=== PATIENT | male | born 1945 | race American Indian/Alaskan Native ===

== ENCOUNTER 2017-02-05 12:24 | Inpatient (IN) | payer BC, MEDICARE ==
[2017-02-05 13:20] VITALS: BMI 28.5
[2017-02-05 13:26] LABS: INR 1.11 (0.93-1.08); PARTIAL THROMBOPLASTIN TIME 27.2 Seconds (25.1-36.5)
[2017-02-05] MEDS ORDERED: Bupivacaine 0.5% Inj(30mL) ONE (14:14)
[2017-02-05] MEDS ORDERED: Propofol 10 mg/ml Inj (20 ML) ONE ×2 (14:29→15:49)
[2017-02-05] MEDS ORDERED: Midazolam 2 MG/2 ML VIAL ONE (14:30)
[2017-02-05] MEDS ORDERED: Rocuronium 10 mg/ml (5 ml) ONE ×2 (14:30→15:49)
[2017-02-05] MEDS ORDERED: HYDROmorphone 1 mg/ml ISec IVP PRN (14:56)
[2017-02-05 16:04] LABS: FLUID TYPE SYNOVIAL FLUID
[2017-02-05 16:52] LABS: SYNOVIAL FLUID TOTAL COUNT 100 (0-0)
--- NOTE | 2017-02-05 17:18 | CARD ---
APPROVED REPORT EKG Measurement Heart [id number] <Conclusion> Normal sinus rhythm Normal ECG
[2017-02-05] MEDS ORDERED: Absorbable Gelatin Sponge Size 100 ONE (17:30)
[2017-02-05] MEDS ORDERED: Thrombin Topical 5,000 Int Units Spray Kit ONE (17:31)
[2017-02-05] MEDS ORDERED: Vancomycin 1 g Inj ONE (17:41)
[2017-02-05] MEDS: HYDROmorphone 0.5 mg/0.5 ml ISec IVP PRN ×3 (20:22→20:58)
[2017-02-05] MEDS ORDERED: HYDROmorphone 1 mg/ml PCA IV ONE (20:35)
[2017-02-05] MEDS ORDERED: HYDROmorphone 0.5 mg/0.5 ml ISec ONE ×2 (20:40→20:57)
[2017-02-05] MEDS ORDERED: HYDROmorphone 0.2 mg/ml (25ml) 25 ML IV ONE (20:43)
--- NOTE | 2017-02-05 23:07 | CP.PCM.CON ---
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 Jenkins, Prostate cancer s/p radiation, GERD, CAD, NIDDM Type II, and Hyperlipidemia. The patient taken to OR for right knee arthroplasty placement after having his prior right knee arthroplasty removed for infection. The patient underwent 6 weeks of IV antibiotics with good results. PMHx: CLL, Prostate Ca, GERD, CAD, NIDDM Type II, HLD PSHx: Right permacath, Bilateral knee arthroplasty, right knee arthroplasty explant, tooth extractions Allergies: NKDA Social Hx: Ex-EtOH use stopped 35 years ago, Ex-smoker 1.5 ppd stopped 26 years ago No illicit drug use Active Medications Acetaminophen (Tylenol 325mg Tab) 975 mg PO Q8H [facility] Aspirin (Ecotrin) 81 mg PO DAILY [facility] Cyproheptadine HCl (Periactin) 4 mg PO BID [facility] Docusate Sodium (Colace) 100 mg PO BID [facility] Enoxaparin Sodium (Lovenox) 40 mg SC Q24H [facility] PRN Reason: Protocol Ergocalciferol (Drisdol 50,000 Intl Units Cap) 1 cap PO MON [facility] Hydromorphone HCl (Dilaudid) 0.5 mg IVP Q4 PRN PRN Reason: Pain, severe (8-10) Cefazolin Sodium 2 gm/ Sodium (Chloride) 100 mls @ 200 mls/hr IVPB Q8H [facility] PRN Reason: Protocol Stop: 02/06/17 07:29 Last Admin: 02/05/17 23:19 Dose: 200 mls/hr Multivitamins/Minerals (Therapeutic-M Tab) 1 tab PO DAILY [facility] Nitrofurantoin Macrocrystals (Macrobid) 100 mg PO DAILY [facility] Fesoterodine Fumarate [Toviaz] 4 Mg 4 mg PO DAILY [facility] Iron [Iron] 65 Mg 65 mg PO DAILY [facility] Methenamine Hippurate [Hiprex] 1 Gm 1 gm PO DAILY [facility] Sitagliptin Phos/Metformin Hcl [ Janumet 50-1,000 Mg Tablet] 1 tab PO BID [facility] Tamsulosin HCl (Flomax) 0.4 mg PO DAILY [facility] Family Hx: DM in mother Lung cancer father cancer in sister ROS: No fevers, chills, nausea, vomiting, diarrhea, headaches, dizziness, chest pain , abdominal pain, melena, hematuria, hematemesis, hematochezia, depression, anxiety Past Patient History - Infectious Disease Hx of Infectious Diseases: None - Tetanus Immunizations Tetanus Immunization: >10 years Ago - Past Social History Smoking Status: Former Smoker - CARDIAC Hx Pacemaker: No - PULMONARY Hx Respiratory Disorders: No (SMOKED CIGARETTES PK 1/2 QUIT 30 YRS AGO) - NEUROLOGICAL Hx Paralysis: No - HEENT Hx HEENT Problems: No - RENAL Hx Chronic Kidney Disease: No - ENDOCRINE/METABOLIC Hx Endocrine Disorders: Yes - HEMATOLOGICAL/ONCOLOGICAL Hx Blood Transfusions: No Hx Blood Transfusion Reaction: No - INTEGUMENTARY Hx Dermatological Problems: No - MUSCULOSKELETAL/RHEUMATOLOGICAL Hx Musculoskeletal Disorders: Yes (BILATERAL KNEE SURGERY,) - GASTROINTESTINAL Hx Gastrointestinal Disorders: No Hx Crohn's Disease: No - GENITOURINARY/GYNECOLOGICAL Hx Genitourinary Disorders: Yes Hx Prostate Cancer: Yes Hx Prostate Problems: Yes (prostate ca) - PSYCHIATRIC Hx Emotional Abuse: No Hx Physical Abuse: No Hx Substance Use: No - SURGICAL HISTORY Hx Surgeries: Yes - ANESTHESIA Hx Anesthesia Reactions: No Meds Allergies/Adverse Reactions: Allergies Allergy/AdvReac Type Severity Reaction Status Date / Time No Known Allergies Allergy Verified 03/07/16 10:06 - Medications Medications: Current Medications Acetaminophen (Tylenol 325mg Tab) 975 mg PO Q8H [facility] Aspirin (Ecotrin) 81 mg PO DAILY [facility] Cyproheptadine HCl (Periactin) 4 mg PO BID [facility] Docusate Sodium (Colace) 100 mg PO BID [facility] Enoxaparin Sodium (Lovenox) 40 mg SC Q24H [facility] PRN Reason: Protocol Ergocalciferol (Drisdol 50,000 Intl Units Cap) 1 cap PO MON [facility] Hydromorphone HCl (Dilaudid) 0.5 mg IVP Q4 PRN PRN Reason: Pain, severe (8-10) Cefazolin Sodium 2 gm/ Sodium (Chloride) 100 mls @ 200 mls/hr IVPB Q8H [facility] PRN Reason: Protocol Stop: 02/06/17 07:29 Multivitamins/Minerals (Therapeutic-M Tab) 1 tab PO DAILY [facility] Nitrofurantoin Macrocrystals (Macrobid) 100 mg PO DAILY [facility] Fesoterodine Fumarate [Toviaz] 4 Mg 4 mg PO DAILY [facility] Iron [Iron] 65 Mg 65 mg PO DAILY [facility] Methenamine Hippurate [Hiprex] 1 Gm 1 gm PO DAILY [facility] Sitagliptin Phos/Metformin Hcl [ Janumet 50-1,000 Mg Tablet] 1 tab PO BID [facility] Tamsulosin HCl (Flomax) 0.4 mg PO DAILY [facility] Physical Exam - Constitutional Appears: Non-toxic, No Acute Distress - Head Exam Head Exam: ATRAUMATIC, NORMOCEPHALIC - Eye Exam Eye Exam: EOMI, PERRL Pupil Exam: NORMAL ACCOMODATION, PERRL - ENT Exam ENT Exam: Mucous Membranes Moist, Normal External Ear Exam, TM's Normal Bilaterally - Neck Exam Neck exam: Positive for: Full Rom, Normal Inspection - Respiratory Exam Respiratory Exam: Clear to Auscultation Bilateral, NORMAL BREATHING PATTERN. absent: Rales, Rhonchi, Wheezes - Cardiovascular Exam Cardiovascular Exam: REGULAR RHYTHM, RRR, +S1 - GI/Abdominal Exam GI & Abdominal Exam: Normal Bowel Sounds, Soft. absent: Distended, Tenderness - Extremities Exam Extremities exam: Positive for: full ROM, normal inspection Additional comments: s/p right knee arthroplasty - Neurological Exam Neurological exam: Alert, CN II-XII Intact, Oriented x3 - Psychiatric Exam Psychiatric exam: Normal Affect, Normal Mood - Skin Skin Exam: Intact, Normal Color Results - Vital Signs Recent Vital Signs: Last Vital Signs Temp 98.2 F 02/05/17 21:20 Pulse 83 02/05/17 21:20 Resp 16 02/05/17 21:20 BP 127/69 02/05/17 21:20 Pulse Ox 100 02/05/17 21:20 - Labs Labs: Laboratory Results - last 24 hr 02/05/17 02/05/17 02/05/17 13:00 13:00 16:03 PT 12.2 INR 1.11 H APTT 27.2 Fluid Type Synovial fluid Synovial WBC 108.0 Synovial RBC 7128.0 H Synovial Neutrophils 20.0 H Synovial Lymphocytes 75.0 H Synov Monos/Macrophage 5 H Synovial Fluid Comment TEST NOT PERFORMED Blood Type O POSITIVE Antibody Screen Negative Crossmatch See Detail BBK History Checked Patient has bt Assessment & Plan - Assessment and Plan (Free Text) Assessment: 71 yo AA male with right knee arthroplasty done today. The patient has a history of CLL on chemotherapy, GERDs, HTN, NIDDM Type II. ESR prior to today' s surgery was under 40. He completed a 6 week course of IV antibiotics about 2- 3 weeks ago. Currently on the postsurgical Ancef. Patient is calm and collected now. States he is relatively comfortable at this time. Supportive care. May consider use of prophylactic antibiotic therapy given his multiple complications. Thank you for allowing me to participate in the care of the patient, we will follow with you.
[2017-02-05] MEDS: ceFAZolin 2 GM in Sodium Chloride 0.9% 100 ML IVPB SCH (23:19)
--- NOTE | 2017-02-06 05:38 | OP ---
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 PROCEDURE: Revision right total hip arthroplasty. SURGEON: Josh Fritz MD CREATIVE WRITING PROFESSOR: Dr. Fritz is assisted by Caryn Garcia, the physician photographer's assistant. Ms. Garcia was present throughout the entire case and assisted in the patient's positioning, retraction and wound closure. TYPE OF ANESTHESIA: General. COMPLICATIONS: None. ESTIMATED BLOOD LOSS: 800 mL. The patient received 1 unit of packed RBCs intraoperatively. IMPLANT: Biomet OSS hinged total knee prosthesis. INDICATIONS FOR PROCEDURE: This is a 71-year-old gentleman who approximately 3 months ago underwent removal of right total knee replacement and insertion of an antibiotic spacer. The patient postoperatively subsequently had a long course of IV antibiotics. Subsequently, the patient was cleared for reimplantation. The risks, benefits, and alternatives of procedure were discussed with the patient and the patient's including the possibility of reinfection, and informed consent was obtained. OPERATIVE PROCEDURE: After the surgical site was signed and verified in the preoperative holding area, the patient was taken to the operating room and placed supine on the operating room table. After administration of general anesthesia, the patient received 2 g of Ancef IV. A Baires catheter was inserted. Tourniquet was placed about the right thigh. Care was taken to make sure all bony prominences and nerves were well padded and protected. Venodyne boot was placed on the nonoperative extremity, and the right lower extremity was prepped and draped in usual sterile fashion. The tourniquet was inflated and the previous incision was re-incised. Soft tissues were dissected sharply down to the knee capsule and the medial parapatellar arthrotomy was performed. The patient was noted to have extensive scar tissue and the soft tissue extremely adherent both medially and laterally and this necessitated, in order to obtain adequate exposure, a significant medial and lateral soft tissue release was necessary. Once this was done, the antibiotic spacer was removed and some fluid was sent off for cell count and soft tissue was sent for frozen section. At this point, due to the extensive soft tissue release, a decision was made to do a hinged prosthesis and a step drill was used to drill into the medullary canal of the distal femur and intramedullary distal femoral guide for the OSS implant was then inserted and pinned into place. A 3 cm distal femoral resection was performed and the medullary canal of the proximal femur was reamed and broached sequentially to allow for a 15.5 mm stem. At this point, using the intramedullary proximal tibial guide, revision proximal tibial cut was performed. Once this was done, being careful to maintain proper rotation, the trial tibia was inserted, a trial femur was inserted, and a trial bearing was inserted. The knee was taken through a range of motion, it was noted to have full extension and flexion and stable throughout. At this point, the trial component was removed and the knee joint was pulsed lavaged with antibiotic saline solution. Please note, the tourniquet was deflated after 127 minutes, and approximately 35 minutes later, the tourniquet was reinflated for an additional 53 minutes. Once the tourniquet was reinflated, the bony surfaces were dried and the actual tibial and femoral components were cemented into place. Again, care was taken to maintain proper rotation of the tibial component. Once the cement was hardened, the trial bearing was once again inserted to confirm satisfactory position, and at this point, the knee joint was pulsed lavaged and actual bearing was inserted and hinged to the femoral component with the appropriate pushing. Again, the patient was noted to have full extension and flexion and stable throughout. At this point, the tourniquet was deflated and any obvious bleeding was cauterized. Medium Hemovac drain was inserted and arthrotomy was closed using interrupted #1 Vicryl suture. Please note that two Biomet All-Suture Anchors were inserted into the tibial tubercle to prevent any tibial tubercle avulsion fracture. The subcutaneous tissue was closed using 0 Vicryl and 2-0 Vicryl and the skin was closed using 3-0 nylon. A sterile dressing was applied and a knee immobilizer was placed. The patient was awakened from the procedure and taken to the recovery room in stable condition. Josh Fritz MD
[2017-02-06] MEDS: ceFAZolin 2 GM in Sodium Chloride 0.9% 100 ML IVPB SCH (06:23)
--- NOTE | 2017-02-06 07:11 | CP.PCM.CON ---
History of Present Illness - History of Present Illness History of Present Illness: Heme/onc progress note for Dr Jenkins's service Reason for consult: anemia Patient is a 71 y/o male known to Dr Jenkins with PMH of stage IV SLL/CLL and prostate cancer locally advanced s/p radiation and androgen blocked neupron and aredia. Patient was on Imbruvica for SLL which is on hold in preparation to surgery due to increased risk of bleeding diasthesis and atrial fibrillation with this medications. Patient was also on eliquis which was also stopped anticipating surgery. Patient had recent PET scan ( 01/30/17) with no evidence of progression. Patient had bilateral knee replacement few years ago and since then he states he has been having problems with the knees getting infected. Patient presented to same day surgery yesterday for revision of the right knee prosthetic joint infection s/p explant and spacer of the knee. Patient lost 800 ml of blood in the OR was transfused a unit. Patient also had bloody drainage from the right knee drained 610 since being on the med/surg floor. Dr Jenkins is consulted for the management of his anemia and reevaluation post operatively. Patient otherwise states he is feeling better, had temp with tmax of 102.6 around midnight, and was giving Tylenol, temp this am was 99.6. Patient denies chills, denies nausea, vomiting or diarrhea. Patient's right leg is immobilized. Patient denies dizziness, cp or sob. No headaches. PMHx: stage IV SLL/CLL, prostate CA s/p radiation and chemo, GERD, HLD, CAD, NIDDM2 PSHx: BL knee Sx, tooth extractions, R permacath SocialHx: 35 pack year history, quit 26years ago, denies alcohol or illicit drug use. FamilyHx: Mom had DM. Dad had Lung CA. Sister had unknown type of CA Allergies: NKDA Home Meds: reviewed. Review of Systems - Review of Systems All systems: reviewed and no additional remarkable complaints except Review of Systems: As per HPI. Past Patient History - Infectious Disease Hx of Infectious Diseases: None - Tetanus Immunizations Tetanus Immunization: >10 years Ago - Past Social History Smoking Status: Former Smoker Alcohol: None Drugs: Denies Home Situation {Lives}: With Family - CARDIAC Hx Pacemaker: No - PULMONARY Hx Respiratory Disorders: No (SMOKED CIGARETTES PK 1/2 QUIT 30 YRS AGO) - NEUROLOGICAL Hx Paralysis: No - HEENT Hx HEENT Problems: No - RENAL Hx Chronic Kidney Disease: No - ENDOCRINE/METABOLIC Hx Endocrine Disorders: Yes - HEMATOLOGICAL/ONCOLOGICAL Hx Blood Transfusions: No Hx Blood Transfusion Reaction: No - INTEGUMENTARY Hx Dermatological Problems: No - MUSCULOSKELETAL/RHEUMATOLOGICAL Hx Musculoskeletal Disorders: Yes (BILATERAL KNEE SURGERY,) - GASTROINTESTINAL Hx Gastrointestinal Disorders: No Hx Crohn's Disease: No - GENITOURINARY/GYNECOLOGICAL Hx Genitourinary Disorders: Yes Hx Prostate Cancer: Yes Hx Prostate Problems: Yes (prostate ca) - PSYCHIATRIC Hx Emotional Abuse: No Hx Physical Abuse: No Hx Substance Use: No - SURGICAL HISTORY Hx Surgeries: Yes - ANESTHESIA Hx Anesthesia Reactions: No Meds Allergies/Adverse Reactions: Allergies Allergy/AdvReac Type Severity Reaction Status Date / Time No Known Allergies Allergy Verified 03/07/16 10:06 - Medications Medications: Current Medications Acetaminophen (Tylenol 325mg Tab) 975 mg PO Q8H [facility] Aspirin (Ecotrin) 81 mg PO DAILY [facility] Cyproheptadine HCl (Periactin) 4 mg PO BID [facility] Docusate Sodium (Colace) 100 mg PO BID [facility] Enoxaparin Sodium (Lovenox) 40 mg SC Q24H [facility] PRN Reason: Protocol Ergocalciferol (Drisdol 50,000 Intl Units Cap) 1 cap PO MON [facility] Hydromorphone HCl (Dilaudid) 0.5 mg IVP Q4 PRN PRN Reason: Pain, severe (8-10) Cefazolin Sodium 2 gm/ Sodium (Chloride) 100 mls @ 200 mls/hr IVPB Q8H [facility] PRN Reason: Protocol Stop: 02/06/17 07:29 Last Admin: 02/06/17 06:23 Dose: 200 mls/hr Multivitamins/Minerals (Therapeutic-M Tab) 1 tab PO DAILY [facility] Nitrofurantoin Macrocrystals (Macrobid) 100 mg PO DAILY [facility] Fesoterodine Fumarate [Toviaz] 4 Mg 4 mg PO DAILY [facility] Iron [Iron] 65 Mg 65 mg PO DAILY [facility] Methenamine Hippurate [Hiprex] 1 Gm 1 gm PO DAILY [facility] Sitagliptin Phos/Metformin Hcl [ Janumet 50-1,000 Mg Tablet] 1 tab PO BID [facility] Tamsulosin HCl (Flomax) 0.4 mg PO DAILY [facility] Physical Exam - Constitutional Appears: No Acute Distress - Head Exam Head Exam: ATRAUMATIC, NORMAL INSPECTION, NORMOCEPHALIC - Eye Exam Eye Exam: EOMI, Normal appearance, PERRL. absent: Scleral icterus Pupil Exam: NORMAL ACCOMODATION - ENT Exam ENT Exam: Mucous Membranes Moist - Neck Exam Neck exam: Positive for: Normal Inspection - Respiratory Exam Respiratory Exam: Clear to Auscultation Bilateral, NORMAL BREATHING PATTERN. absent: Rales, Rhonchi, Wheezes, Respiratory Distress, Stridor - Cardiovascular Exam Cardiovascular Exam: REGULAR RHYTHM, RRR, +S1, +S2. absent: Systolic Murmur - GI/Abdominal Exam GI & Abdominal Exam: Normal Bowel Sounds, Soft. absent: Distended, Firm, Guarding, Rigid, Tenderness - Extremities Exam Extremities exam: Negative for: pedal edema Additional comments: Right leg with clean dressing, immobilized, with knee drain draining sanguineous fluid. - Neurological Exam Neurological exam: Alert, Oriented x3, Reflexes Normal - Psychiatric Exam Psychiatric exam: Normal Affect, Normal Mood - Skin Skin Exam: Dry, Warm Results - Vital Signs Recent Vital Signs: Last Vital Signs Temp 102.6 F H 02/06/17 03:35 Pulse 92 H 02/06/17 00:05 Resp 20 02/06/17 00:05 BP 128/69 02/06/17 00:05 Pulse Ox 100 02/06/17 00:05 - Labs Result Diagrams: 02/06/17 07:30 02/06/17 07:30 Labs: Laboratory Results - last 24 hr 02/05/17 02/05/17 02/05/17 13:00 13:00 16:03 PT 12.2 INR 1.11 H APTT 27.2 Fluid Type Synovial fluid Synovial WBC 108.0 Synovial RBC 7128.0 H Synovial Neutrophils 20.0 H Synovial Lymphocytes 75.0 H Synov Monos/Macrophage 5 H Synovial Fluid Comment TEST NOT PERFORMED Blood Type O POSITIVE Antibody Screen Negative Crossmatch See Detail BBK History Checked Patient has bt Assessment & Plan - Assessment and Plan (Free Text) Assessment: 71 y/o male known to Dr Jenkins with PMH of stage IV SLL/CLL ( was on Imbruvica ) and prostate cancer locally advanced s/p radiation and androgen blocked neupron admitted s/p right knee prosthetic joint infection revision s/p explant and spacer. Patient was transfused a unit in the OR yesterday. Heme/onc is consulted to reevaluate and treat anemia. Patient h/h dropped this am, will type and cross and transfuse 2 units of prbc, each unit transfused over 3 hours. Patient to get pre-medicated with Tylenol, Benadryl and solucortef prior to transfusion and will get 40 mg of Lasix in between the transfusions. Patient was started on Lovenox this AM for DVT prophylaxis by orthopedic. Will continue to hold Imbruvica chemo until patient is stable. Patient is being followed by multiple services including ID and cardio. Patient was febrile overnight, will order blood cultures, more recommendations as per ID. Patient seen, examined and case discussed with Dr Jenkins. - Date & Time Date: 02/06/17 Time: 07:10
[2017-02-06 08:19] LABS: BASO # 0.02 K/mm3 (0.0-2.0); BASO % 0.3 % (0.0-3.0); EOS % 0.1 % (1.5-5.0); GRAN # 2.86 (1.4-6.5); GRAN % 41.2 % (50.0-68.0); LYMPH # 3.4 (1.2-3.4); LYMPH % 49.1 % (22.0-35.0); MEAN CORPUSCULAR HEMOGLOBIN 23.7 pg (25.0-35.0); MEAN CORPUSCULAR HGB CONC 30.3 g/dl (31.0-37.0); MEAN PLATELET VOLUME 10.7 fl (7.0-11.0); MONO # 0.7 (0.1-0.6); MONO % 9.3 % (1.0-6.0); RED CELL DISTRIBUTION WIDTH 17.4 % (11.5-14.5)
[2017-02-06 08:22] LABS: BLOOD UREA NITROGEN 9 mg/dL (7-21); CALCIUM 8.2 mg/dL (8.4-10.5); CARBON DIOXIDE 24 mmol/L (21-33); CHLORIDE 108 mmol/L (98-107); GFR AFRICAN-AMERICAN > 60; GLUCOSE,RANDOM 127 mg/dL (70-110); SODIUM 139 mmol/L (132-148)
--- NOTE | 2017-02-06 08:24 | PCM.SURG1 ---
Surgeon's Initial Post Op Note - Surgeon's Notes Surgeon: Shyla Fritz MD [employer] Consultant: Sara Garcia PA-C Type of Anesthesia: General Endo Anesthesia Administered By: Dr. Snyder Pre-Operative Diagnosis: Right knee prosthetic joint infection s/p explant/ spacer Operative Findings: tourniquet: 127 min @300mmHg, down 30 min, 53min @300mmHg Post-Operative Diagnosis: same Operation Performed: Right knee revision total knee replacement Specimen/Specimens Removed: intraop specimen 0-2 WBC per HPF, no organisms Estimated Blood Loss: EBL {In ML}: 800 Blood Products Given: PRBC (1uPRBC) Drains Used: Hemovac Post-Op Condition: Fair Date of Surgery/Procedure: 02/05/17 Time of Surgery/Procedure: 20:00
[2017-02-06 08:25] LABS: HEMATOCRIT 23.4 % (42.0-52.0)
--- NOTE | 2017-02-06 08:30 | RAD ---
PROCEDURE: Right knee two views HISTORY: pt in PACU, s/p revision TKR COMPARISON: TECHNIQUE: Three views were obtained FINDINGS: There is a right knee prosthesis with long intramedullary components in the femur and tibia. There is no acute fracture or loosening. IMPRESSION: No acute findings
--- NOTE | 2017-02-06 08:31 | RAD ---
PROCEDURE: Radiographs of the right tibia and fibula. HISTORY: s/p revision TKR COMPARISON: None available. TECHNIQUE: Frontal and lateral views obtained. FINDINGS: BONES: No fracture or destructive lesion. JOINT SPACES: Unremarkable. OTHER FINDINGS: Right knee prosthesis. IMPRESSION: Unremarkable radiographs of the right tibia and fibula.
--- NOTE | 2017-02-06 08:32 | RAD ---
PROCEDURE: Right Femur Radiographs. HISTORY: s/p revision TKR COMPARISON: None. TECHNIQUE: AP and Lateral Radiographs of the right femur. FINDINGS: FEMUR: Normal. No fracture. SOFT TISSUES: Normal. OTHER FINDINGS: None. IMPRESSION: Unremarkable radiographs of the right femur.
[2017-02-06] MEDS ORDERED: DiphenhydrAMINE 50 mg/ml Inj IVP STA (09:17)
[2017-02-06] MEDS: Multivitamin With Minerals Tab PO SCH (09:40)
[2017-02-06] MEDS ORDERED: NITROFURANTOIN MACROCRYSTAL 100 MG PO SCH (10:00)
--- NOTE | 2017-02-06 10:29 | CP.PCM.PN ---
Subjective - Date & Time of Evaluation Date of Evaluation: 02/06/17 Time of Evaluation: 10:27 - Subjective Subjective: Pt awake, alert. Adequate pain control. VSS RLE: immobilizer in place dressing clean and intact NVI distally Hg 7.1 POD#1 Pt to receive 2 units of PRBCs follow H&H follow ID recommendations Objective - Vital Signs/Intake and Output Vital Signs (last 24 hours): Temp Pulse Resp BP Pulse Ox 99.9 F H 77 20 108/64 99 02/06/17 08:26 02/06/17 08:26 02/06/17 08:26 02/06/17 08:26 02/06/17 08:26 Intake and Output: 02/06/17 02/06/17 06:59 18:59 Intake Total 1860 Output Total 1260 Balance 600 - Medications Medications: Current Medications Acetaminophen (Tylenol 325mg Tab) 975 mg PO Q8H [facility] Last Admin: 02/06/17 08:12 Dose: 975 mg Aspirin (Ecotrin) 81 mg PO DAILY [facility] Last Admin: 02/06/17 09:39 Dose: 81 mg Cyproheptadine HCl (Periactin) 4 mg PO BID [facility] Last Admin: 02/06/17 09:40 Dose: 4 mg Docusate Sodium (Colace) 100 mg PO BID [facility] Last Admin: 02/06/17 09:40 Dose: 100 mg Enoxaparin Sodium (Lovenox) 40 mg SC Q24H [facility] PRN Reason: Protocol Ergocalciferol (Drisdol 50,000 Intl Units Cap) 1 cap PO MON [facility] Furosemide (Lasix) 40 mg IV ONCE ONE Stop: 02/06/17 13:01 Hydromorphone HCl (Dilaudid) 0.5 mg IVP Q4 PRN PRN Reason: Pain, severe (8-10) Multivitamins/Minerals (Therapeutic-M Tab) 1 tab PO DAILY [facility] Last Admin: 02/06/17 09:40 Dose: 1 tab Nitrofurantoin Macrocrystals (Macrobid) 100 mg PO DAILY [facility] Last Admin: 02/06/17 09:40 Dose: 100 mg Fesoterodine Fumarate [Toviaz] 4 Mg 4 mg PO DAILY [facility] Iron [Iron] 65 Mg 65 mg PO DAILY [facility] Methenamine Hippurate [Hiprex] 1 Gm 1 gm PO DAILY [facility] Sitagliptin Phos/Metformin Hcl [ Janumet 50-1,000 Mg Tablet] 1 tab PO BID [facility] Tamsulosin HCl (Flomax) 0.4 mg PO DAILY [facility] Last Admin: 02/06/17 09:40 Dose: 0.4 mg - Labs Labs: 02/06/17 07:30 02/06/17 07:30 PT 12.2 SECONDS (9.4-12.5) 02/05/17 13:00 INR 1.11 (0.93-1.08) H 02/05/17 13:00 APTT 27.2 Seconds (25.1-36.5) 02/05/17 13:00
[2017-02-06] MEDS: Enoxaparin 40 mg Syringe SC SCH (18:02)
[2017-02-06] MEDS: Fesoterodine Fumarate [Toviaz] 4 MG PO SCH (18:51)
[2017-02-06] MEDS: IRON 65 MG PO SCH (18:51)
[2017-02-06] MEDS: Methenamine Hippurate [Hiprex] 1 GM PO SCH (18:51)
[2017-02-06] MEDS: HYDROmorphone 0.5 mg/0.5 ml ISec IVP PRN ×2 (19:33→22:39)
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
--- NOTE | 2017-02-06 23:15 | CP.PCM.PN ---
Subjective - Date & Time of Evaluation Date of Evaluation: 02/06/17 Time of Evaluation: 22:30 - Subjective Subjective: Infectious Disease Follow Up: February 06, 2017 71 yo AA male with extensive past medical history that includes 24 year history of CLL receiving chemotherapy from Dr. Jenkins, Prostate cancer s/p radiation, GERD, CAD, NIDDM Type II, and Hyperlipidemia. The patient taken to OR for right knee arthroplasty placement after having his prior right knee arthroplasty removed for infection. The patient underwent 6 weeks of IV antibiotics with good results. Objective - Vital Signs/Intake and Output Vital Signs (last 24 hours): Temp Pulse Resp BP Pulse Ox 98.5 F 85 20 102/57 L 99 02/06/17 16:28 02/06/17 16:28 02/06/17 16:28 02/06/17 16:28 02/06/17 16:28 Intake and Output: 02/06/17 02/07/17 18:59 06:59 Intake Total 300 Balance 300 - Medications Medications: Current Medications Acetaminophen (Tylenol 325mg Tab) 975 mg PO Q8H [facility] Last Admin: 02/06/17 18:06 Dose: 975 mg Aspirin (Ecotrin) 81 mg PO DAILY [facility] Last Admin: 02/06/17 09:39 Dose: 81 mg Cyproheptadine HCl (Periactin) 4 mg PO BID [facility] Last Admin: 02/06/17 18:06 Dose: 4 mg Docusate Sodium (Colace) 100 mg PO BID [facility] Last Admin: 02/06/17 18:01 Dose: 100 mg Enoxaparin Sodium (Lovenox) 40 mg SC Q24H [facility] PRN Reason: Protocol Last Admin: 02/06/17 18:02 Dose: 40 mg Ergocalciferol (Drisdol 50,000 Intl Units Cap) 1 cap PO MON [facility] Hydromorphone HCl (Dilaudid) 0.5 mg IVP Q4 PRN PRN Reason: Pain, severe (8-10) Last Admin: 02/06/17 22:39 Dose: 0.5 mg Multivitamins/Minerals (Therapeutic-M Tab) 1 tab PO DAILY [facility] Last Admin: 02/06/17 09:40 Dose: 1 tab Nitrofurantoin Macrocrystals (Macrobid) 100 mg PO DAILY [facility] Last Admin: 02/06/17 09:40 Dose: 100 mg Fesoterodine Fumarate [Toviaz] 4 Mg 4 mg PO DAILY [facility] Last Admin: 02/06/17 18:51 Dose: Not Given Iron [Iron] 65 Mg 65 mg PO DAILY [facility] Last Admin: 02/06/17 18:51 Dose: Not Given Methenamine Hippurate [Hiprex] 1 Gm 1 gm PO DAILY [facility] Last Admin: 02/06/17 18:51 Dose: Not Given Sitagliptin Phos/Metformin Hcl [ Janumet 50-1,000 Mg Tablet] 1 tab PO BID [facility] Tamsulosin HCl (Flomax) 0.4 mg PO DAILY [facility] Last Admin: 02/06/17 09:40 Dose: 0.4 mg - Labs Labs: 02/06/17 07:30 02/06/17 07:30 PT 12.2 SECONDS (9.4-12.5) 02/05/17 13:00 INR 1.11 (0.93-1.08) H 02/05/17 13:00 APTT 27.2 Seconds (25.1-36.5) 02/05/17 13:00 - Constitutional Appears: Non-toxic, No Acute Distress - Head Exam Head Exam: ATRAUMATIC, NORMOCEPHALIC - Eye Exam Eye Exam: EOMI, PERRL Pupil Exam: NORMAL ACCOMODATION, PERRL - ENT Exam ENT Exam: Mucous Membranes Moist, Normal External Ear Exam, TM's Normal Bilaterally - Neck Exam Neck Exam: Full ROM, Normal Inspection - Respiratory Exam Respiratory Exam: Clear to Ausculation Bilateral, NORMAL BREATHING PATTERN. absent: Rales, Rhonchi, Wheezes - Cardiovascular Exam Cardiovascular Exam: REGULAR RHYTHM, RRR, +S1, +S2 - GI/Abdominal Exam GI & Abdominal Exam: Soft, Normal Bowel Sounds. absent: Distended, Tenderness - Extremities Exam Extremities Exam: Full ROM, Normal Inspection Additional comments: s/p right knee arthroplasty - Neurological Exam Neurological Exam: Alert, Awake, CN II-XII Intact, Oriented x3 - Psychiatric Exam Psychiatric exam: Normal Affect, Normal Mood - Skin Skin Exam: Intact, Normal Color Assessment and Plan - Assessment and Plan (Free Text) Assessment: 71 yo AA male with right knee arthroplasty done today. The patient has a history of CLL on chemotherapy, GERDs, HTN, NIDDM Type II. ESR prior to today' s surgery was under 40. He completed a 6 week course of IV antibiotics about 2- 3 weeks ago. Currently on the postsurgical Ancef. Patient is calm and collected now. States he is relatively comfortable at this time. Supportive care. May consider use of prophylactic antibiotic therapy given his multiple complications. Was on Ancef and Vancomycin as an outpatient. Can consider use of Augmentin 875mg BID for the next 4 weeks. Thank you for allowing me to participate in the care of the patient, we will follow with you.
[2017-02-07] MEDS: HYDROmorphone 0.5 mg/0.5 ml ISec IVP PRN ×5 (02:17→22:20)
--- NOTE | 2017-02-07 06:48 | CP.PCM.PN ---
Subjective - Date & Time of Evaluation Date of Evaluation: 02/07/17 Time of Evaluation: 07:15 - Subjective Subjective: Heme/onc progress note for Dr Jenkins's service. Patient was not able to get blood transfusion yesterday due to confusions. Patient is afebrile this morning. No complaints. Denies fever, chills, nausea, vomiting or diarrhea. No abdominal pain. Admits to right knee pain. Objective - Vital Signs/Intake and Output Vital Signs (last 24 hours): Temp Pulse Resp BP Pulse Ox 98.8 F 74 18 64/57 L 98 02/07/17 00:00 02/07/17 00:00 02/07/17 00:00 02/07/17 00:00 02/07/17 00:00 Intake and Output: 02/06/17 02/07/17 18:59 06:59 Intake Total 780 Output Total 550 Balance 230 - Medications Medications: Current Medications Acetaminophen (Tylenol 325mg Tab) 975 mg PO Q8H [facility] Last Admin: 02/06/17 23:21 Dose: 975 mg Aspirin (Ecotrin) 81 mg PO DAILY [facility] Last Admin: 02/06/17 09:39 Dose: 81 mg Cyproheptadine HCl (Periactin) 4 mg PO BID [facility] Last Admin: 02/06/17 18:06 Dose: 4 mg Docusate Sodium (Colace) 100 mg PO BID [facility] Last Admin: 02/06/17 18:01 Dose: 100 mg Enoxaparin Sodium (Lovenox) 40 mg SC Q24H [facility] PRN Reason: Protocol Last Admin: 02/06/17 18:02 Dose: 40 mg Ergocalciferol (Drisdol 50,000 Intl Units Cap) 1 cap PO MON [facility] Hydromorphone HCl (Dilaudid) 0.5 mg IVP Q4 PRN PRN Reason: Pain, severe (8-10) Last Admin: 02/07/17 05:57 Dose: 0.5 mg Multivitamins/Minerals (Therapeutic-M Tab) 1 tab PO DAILY [facility] Last Admin: 02/06/17 09:40 Dose: 1 tab Nitrofurantoin Macrocrystals (Macrobid) 100 mg PO DAILY [facility] Last Admin: 02/06/17 09:40 Dose: 100 mg Fesoterodine Fumarate [Toviaz] 4 Mg 4 mg PO DAILY [facility] Last Admin: 02/06/17 18:51 Dose: Not Given Iron [Iron] 65 Mg 65 mg PO DAILY [facility] Last Admin: 02/06/17 18:51 Dose: Not Given Methenamine Hippurate [Hiprex] 1 Gm 1 gm PO DAILY [facility] Last Admin: 02/06/17 18:51 Dose: Not Given Sitagliptin Phos/Metformin Hcl [ Janumet 50-1,000 Mg Tablet] 1 tab PO BID [facility] Tamsulosin HCl (Flomax) 0.4 mg PO DAILY [facility] Last Admin: 02/06/17 09:40 Dose: 0.4 mg - Labs Labs: 02/06/17 07:30 02/06/17 07:30 PT 12.2 SECONDS (9.4-12.5) 02/05/17 13:00 INR 1.11 (0.93-1.08) H 02/05/17 13:00 APTT 27.2 Seconds (25.1-36.5) 02/05/17 13:00 - Constitutional Appears: No Acute Distress - Head Exam Head Exam: ATRAUMATIC, NORMAL INSPECTION, NORMOCEPHALIC - Eye Exam Eye Exam: Normal appearance. absent: Scleral icterus - ENT Exam ENT Exam: Mucous Membranes Moist - Neck Exam Neck Exam: Normal Inspection. absent: Lymphadenopathy - Respiratory Exam Respiratory Exam: Clear to Ausculation Bilateral, NORMAL BREATHING PATTERN. absent: Prolonged Expiratory Phase, Rales, Rhonchi, Wheezes, Respiratory Distress, Stridor - Cardiovascular Exam Cardiovascular Exam: REGULAR RHYTHM, RRR, +S1, +S2. absent: Murmur - GI/Abdominal Exam GI & Abdominal Exam: Soft, Normal Bowel Sounds. absent: Distended, Firm, Guarding, Rigid, Tenderness - Extremities Exam Additional comments: No edema of the left leg, right leg with clean dressing and immobilizer, hemovac with dark blood. - Back Exam Back Exam: NORMAL INSPECTION - Neurological Exam Neurological Exam: Alert, Awake, Oriented x3 - Psychiatric Exam Psychiatric exam: Normal Affect, Normal Mood - Skin Skin Exam: Dry, Intact, Warm Assessment and Plan - Assessment and Plan (Free Text) Assessment: Mr. Bhardwaj is a 71 y/o male known to Dr Jenkins with PMH of stage IV SLL/CLL ( was on Imbruvica) and prostate cancer locally advanced s/p radiation and androgen blocked neupron admitted s/p right knee prosthetic joint infection revision s/p explant and spacer placement. Patient was on chemo ( Imbruvica) and eliquis which were all held in preparation of the surgery. Patient is post op day 2, hemoglobin continues to drop, currently 6.8. Patient was unable to get transfused yesterday, unclear reasons why. Patient is type and crossed and is to be transfused today with 2 units of prbc over 3 hours, will give Lasix between transfusions. Pre-medicate with benedryl, solucortef, and Tylenol. On Lovenox for DVT prevention as per ortho, patient also has LLE compression device. Patient is also iron po for anemia. Continue to monitor for bleeding at the surgical site. Patient is being followed by multiple services including ID and cardio. On flomax for BPH/prostate ca, toviaz. Will replete magnesemia for hypomagnesemia. Patient was febrile overnight, will order blood cultures, more recommendations as per ID. Patient seen, examined and case discussed with Dr Jenkins.
[2017-02-07 07:01] LABS: BASO # 0.02 K/mm3 (0.0-2.0); BASO % 0.3 % (0.0-3.0); EOS # 0.1 (0.0-0.7); EOS % 0.8 % (1.5-5.0); GRAN # 2.26 (1.4-6.5); GRAN % 35.3 % (50.0-68.0); LYMPH # 3.5 (1.2-3.4); LYMPH % 55.3 % (22.0-35.0); MEAN CELL VOLUME 77.4 fl (80.0-105.0); MEAN CORPUSCULAR HEMOGLOBIN 23.6 pg (25.0-35.0); MEAN CORPUSCULAR HGB CONC 30.5 g/dl (31.0-37.0); MEAN PLATELET VOLUME 10.9 fl (7.0-11.0); MONO # 0.5 (0.1-0.6); MONO % 8.3 % (1.0-6.0); RED CELL DISTRIBUTION WIDTH 17.6 % (11.5-14.5); WHITE BLOOD COUNT 6.4 10^3/ul (4.5-11.0)
[2017-02-07 07:22] LABS: BLOOD UREA NITROGEN 10 mg/dL (7-21); CALCIUM 8.5 mg/dL (8.4-10.5); CARBON DIOXIDE 24 mmol/L (21-33); CHLORIDE 108 mmol/L (98-107); CHOLESTEROL 68 mg/dL (130-200); GFR AFRICAN-AMERICAN > 60; GLUCOSE,RANDOM 106 mg/dL (70-110); MAGNESIUM 1.6 mg/dL (1.7-2.2); PHOSPHOROUS 3.3 mg/dL (2.5-4.5); POTASSIUM 3.8 mmol/L (3.6-5.0); SODIUM 141 mmol/L (132-148)
[2017-02-07 07:41] LABS: HEMATOCRIT 22.3 % (42.0-52.0)
[2017-02-07] MEDS: Multivitamin With Minerals Tab PO SCH (09:40)
[2017-02-07] MEDS: Magnesium Oxide 400 mg Tab UD PO SCH ×2 (09:41→19:45)
--- NOTE | 2017-02-07 14:50 | CP.PCM.PN ---
Subjective - Date & Time of Evaluation Date of Evaluation: 02/07/17 Time of Evaluation: 13:30 - Subjective Subjective: Infectious Disease Follow Up: February 07, 2017 71 yo AA male with extensive past medical history that includes 24 year history of CLL receiving chemotherapy from Dr. Jenkins, Prostate cancer s/p radiation, GERD, CAD, NIDDM Type II, and Hyperlipidemia. The patient taken to OR for right knee arthroplasty placement after having his prior right knee arthroplasty removed for infection. The patient underwent 6 weeks of IV antibiotics with good results. He was on Ancef and Vancomycin as an outpatient. Objective - Vital Signs/Intake and Output Vital Signs (last 24 hours): Temp Pulse Resp BP Pulse Ox 99.1 F 77 18 101/62 98 02/07/17 13:34 02/07/17 13:34 02/07/17 13:34 02/07/17 14:36 02/07/17 08:00 Intake and Output: 02/07/17 02/07/17 06:59 18:59 Intake Total 780 385 Output Total 550 Balance 230 385 - Medications Medications: Current Medications Acetaminophen (Tylenol 325mg Tab) 975 mg PO Q8H [facility] Last Admin: 02/07/17 09:07 Dose: 975 mg Aspirin (Ecotrin) 81 mg PO DAILY [facility] Last Admin: 02/07/17 09:40 Dose: 81 mg Cyproheptadine HCl (Periactin) 4 mg PO BID [facility] Last Admin: 02/06/17 18:06 Dose: 4 mg Docusate Sodium (Colace) 100 mg PO BID [facility] Last Admin: 02/07/17 09:40 Dose: 100 mg Enoxaparin Sodium (Lovenox) 40 mg SC Q24H [facility] PRN Reason: Protocol Last Admin: 02/06/17 18:02 Dose: 40 mg Ergocalciferol (Drisdol 50,000 Intl Units Cap) 1 cap PO MON [facility] Hydromorphone HCl (Dilaudid) 0.5 mg IVP Q4 PRN PRN Reason: Pain, severe (8-10) Last Admin: 02/07/17 10:27 Dose: 0.5 mg Ibuprofen (Motrin Tab) 600 mg PO Q6H [facility] Stop: 02/07/17 14:46 Last Admin: 02/07/17 14:33 Dose: 600 mg Insulin Human Lispro (Humalog Low) 0 units SC ACHS [facility] PRN Reason: Protocol Magnesium Oxide (Mag-Ox) 400 mg PO BID [facility] Stop: 02/07/17 18:01 Last Admin: 02/07/17 09:41 Dose: 400 mg Multivitamins/Minerals (Therapeutic-M Tab) 1 tab PO DAILY [facility] Last Admin: 02/07/17 09:40 Dose: 1 tab Nitrofurantoin Macrocrystals (Macrobid) 100 mg PO DAILY [facility] Last Admin: 02/07/17 09:40 Dose: 100 mg Fesoterodine Fumarate [Toviaz] 4 Mg 4 mg PO DAILY [facility] Last Admin: 02/06/17 18:51 Dose: Not Given Iron [Iron] 65 Mg 65 mg PO DAILY [facility] Last Admin: 02/06/17 18:51 Dose: Not Given Methenamine Hippurate [Hiprex] 1 Gm 1 gm PO DAILY [facility] Last Admin: 02/06/17 18:51 Dose: Not Given Sitagliptin Phos/Metformin Hcl [ Janumet 50-1,000 Mg Tablet] 1 tab PO BID [facility] Tamsulosin HCl (Flomax) 0.4 mg PO DAILY [facility] Last Admin: 02/07/17 09:40 Dose: 0.4 mg - Labs Labs: 02/07/17 05:30 02/07/17 05:30 PT 12.2 SECONDS (9.4-12.5) 02/05/17 13:00 INR 1.11 (0.93-1.08) H 02/05/17 13:00 APTT 27.2 Seconds (25.1-36.5) 02/05/17 13:00 - Constitutional Appears: Non-toxic, No Acute Distress, Chronically Ill - Head Exam Head Exam: ATRAUMATIC, NORMOCEPHALIC - Eye Exam Eye Exam: EOMI, PERRL Pupil Exam: NORMAL ACCOMODATION, PERRL - ENT Exam ENT Exam: Mucous Membranes Moist, Normal External Ear Exam, TM's Normal Bilaterally - Neck Exam Neck Exam: Full ROM, Normal Inspection - Respiratory Exam Respiratory Exam: Clear to Ausculation Bilateral, NORMAL BREATHING PATTERN. absent: Rales, Rhonchi, Wheezes - Cardiovascular Exam Cardiovascular Exam: REGULAR RHYTHM, RRR, +S1, +S2 - GI/Abdominal Exam GI & Abdominal Exam: Soft, Normal Bowel Sounds. absent: Distended, Tenderness - Extremities Exam Additional comments: s/p right knee arthroplasty - Neurological Exam Neurological Exam: Alert, Awake, CN II-XII Intact, Oriented x3 - Psychiatric Exam Psychiatric exam: Normal Affect, Normal Mood - Skin Skin Exam: Intact, Normal Color Assessment and Plan - Assessment and Plan (Free Text) Assessment: 71 yo AA male with right knee arthroplasty done today. The patient has a history of CLL on chemotherapy, GERDs, HTN, NIDDM Type II. ESR prior to today' s surgery was under 40. He completed a 6 week course of IV antibiotics about 2- 3 weeks ago. Currently on the postsurgical Ancef. Patient is calm and collected now. States he is relatively comfortable at this time. Supportive care. May consider use of prophylactic antibiotic therapy given his multiple complications. Was on Ancef and Vancomycin as an outpatient. Can consider use of Augmentin 875mg BID for the next 4 weeks. Thank you for allowing me to participate in the care of the patient, we will follow with you.
--- NOTE | 2017-02-07 14:52 | CP.PCM.PN ---
Subjective - Date & Time of Evaluation Date of Evaluation: 02/07/17 Time of Evaluation: 14:53 - Subjective Subjective: Pt with more R knee pain this morning. Pt received 1 unit of PRBCs today. Transfusion held yesterday secondary to temp spike. Afebrile, Tmax 100.3 last 24 hours R knee: dressing changed incision clean and dry no cellulities drain d/c'd cultures NGTD Hg 6.8 POD#2 transfuse second unit H&H in am Ancef Objective - Vital Signs/Intake and Output Vital Signs (last 24 hours): Temp Pulse Resp BP Pulse Ox 99.1 F 77 18 101/62 98 02/07/17 13:34 02/07/17 13:34 02/07/17 13:34 02/07/17 14:36 02/07/17 08:00 Intake and Output: 02/07/17 02/07/17 06:59 18:59 Intake Total 780 385 Output Total 550 Balance 230 385 - Medications Medications: Current Medications Acetaminophen (Tylenol 325mg Tab) 975 mg PO Q8H [facility] Last Admin: 02/07/17 09:07 Dose: 975 mg Aspirin (Ecotrin) 81 mg PO DAILY [facility] Last Admin: 02/07/17 09:40 Dose: 81 mg Cyproheptadine HCl (Periactin) 4 mg PO BID [facility] Last Admin: 02/06/17 18:06 Dose: 4 mg Docusate Sodium (Colace) 100 mg PO BID [facility] Last Admin: 02/07/17 09:40 Dose: 100 mg Enoxaparin Sodium (Lovenox) 40 mg SC Q24H [facility] PRN Reason: Protocol Last Admin: 02/06/17 18:02 Dose: 40 mg Ergocalciferol (Drisdol 50,000 Intl Units Cap) 1 cap PO MON [facility] Hydromorphone HCl (Dilaudid) 0.5 mg IVP Q4 PRN PRN Reason: Pain, severe (8-10) Last Admin: 02/07/17 10:27 Dose: 0.5 mg Insulin Human Lispro (Humalog Low) 0 units SC ACHS [facility] PRN Reason: Protocol Magnesium Oxide (Mag-Ox) 400 mg PO BID [facility] Stop: 02/07/17 18:01 Last Admin: 02/07/17 09:41 Dose: 400 mg Multivitamins/Minerals (Therapeutic-M Tab) 1 tab PO DAILY [facility] Last Admin: 02/07/17 09:40 Dose: 1 tab Nitrofurantoin Macrocrystals (Macrobid) 100 mg PO DAILY [facility] Last Admin: 02/07/17 09:40 Dose: 100 mg Fesoterodine Fumarate [Toviaz] 4 Mg 4 mg PO DAILY [facility] Last Admin: 02/06/17 18:51 Dose: Not Given Iron [Iron] 65 Mg 65 mg PO DAILY [facility] Last Admin: 02/06/17 18:51 Dose: Not Given Methenamine Hippurate [Hiprex] 1 Gm 1 gm PO DAILY [facility] Last Admin: 02/06/17 18:51 Dose: Not Given Sitagliptin Phos/Metformin Hcl [ Janumet 50-1,000 Mg Tablet] 1 tab PO BID [facility] Tamsulosin HCl (Flomax) 0.4 mg PO DAILY [facility] Last Admin: 02/07/17 09:40 Dose: 0.4 mg - Labs Labs: 02/07/17 05:30 02/07/17 05:30 PT 12.2 SECONDS (9.4-12.5) 02/05/17 13:00 INR 1.11 (0.93-1.08) H 02/05/17 13:00 APTT 27.2 Seconds (25.1-36.5) 02/05/17 13:00
[2017-02-07] MEDS: Insulin Lispro (humaLOG) LOW Coverage SC SCH ×2 (17:05→17:53)
[2017-02-07] MEDS: Enoxaparin 40 mg Syringe SC SCH (17:53)
[2017-02-07] MEDS: ceFAZolin 1 gm in NS 1 GM/100 ML BAG IVPB SCH ×2 (17:55→21:53)
[2017-02-07] MEDS: IRON 65 MG PO SCH (19:12)
[2017-02-07] MEDS: Fesoterodine Fumarate [Toviaz] 4 MG PO SCH (19:12)
[2017-02-07] MEDS: Methenamine Hippurate [Hiprex] 1 GM PO SCH (19:14)
[2017-02-07] MEDS: METFORMIN HCL PO SCH (19:14)
[2017-02-07] MEDS: SITAGLIPTIN PHOS PO SCH (19:14)
--- NOTE | 2017-02-07 22:56 | PN ---
DATE: 02/07/2017 LOCATION: The patient is in room 577, bed 1. REASON FOR CONSULTATION AND FOLLOWUP: Coronary artery disease, diabetes mellitus, hyperlipidemia, history of CLL, status post knee arthroplasty. SUBJECTIVE: The patient is lying flat in bed without any chest pain, shortness of breath or palpitation. PHYSICAL EXAMINATION: VITAL SIGNS: Blood pressure 108/66, respirations 18, pulse 78, and temperature 98.6. HEENT: Head is normocephalic. Eyes; pupils are normal. Conjunctivae pale. NECK: JVP is low. Carotids are equal. THORAX: AP diameter normal. LUNGS: Clear. CARDIOVASCULAR: S1 and S2. ABDOMEN: Soft and nontender. No organomegaly. EXTREMITIES: No clubbing. No cyanosis. LABORATORY DATA: WBC 6.4, hemoglobin 6.8, hematocrit 22.3, platelet 138, lymphocytes . Sodium 141, potassium 3.8, BUN 10, creatinine 0.8, random sugar 186, another sugar is 106, calcium 8.5, phosphorus 3.3, magnesium 1.6, triglycerides 73, cholesterol 68, TSH 1.64. DIAGNOSES AND PLAN: Postoperative status post right knee arthroplasty, postoperative anemia, chronic lymphocytic leukemia, nonobstructive coronary artery disease, status post cardiac catheterization in 2011, stress test August 2016 was essentially negative, preserved left ventricular function, history of prostatic cancer, diabetes, hypertension, and hyperlipidemia. The patient has been receiving blood transfusion. The patient is on Ancef 1 g IV q.8 hours, aspirin 81 mg p.o. daily, Flomax 0.4 daily, Lovenox 40 mg subcutaneous q.24 hours, and pain medication. Clinically, cardiac status is stable at the moment. We will repeat CBC and basic metabolic panel in the morning, and we will continue to follow with you. Marcos Barboza MD
[2017-02-08] MEDS: ceFAZolin 1 gm in NS 1 GM/100 ML BAG IVPB SCH ×3 (05:35→23:14)
[2017-02-08] MEDS: HYDROmorphone 0.5 mg/0.5 ml ISec IVP PRN ×3 (05:35→23:14)
[2017-02-08] MEDS: Insulin Lispro (humaLOG) LOW Coverage SC SCH ×4 (06:49→16:56)
[2017-02-08 08:02] LABS: BASO # 0.01 K/mm3 (0.0-2.0); BASO % 0.2 % (0.0-3.0); EOS % 0.5 % (1.5-5.0); GRAN # 2.3 (1.4-6.5); GRAN % 39.6 % (50.0-68.0); HEMATOCRIT 27.4 % (42.0-52.0); LYMPH # 2.9 (1.2-3.4); LYMPH % 50.2 % (22.0-35.0); MEAN CELL VOLUME 77.8 fl (80.0-105.0); MEAN CORPUSCULAR HEMOGLOBIN 24.7 pg (25.0-35.0); MEAN CORPUSCULAR HGB CONC 31.8 g/dl (31.0-37.0); MONO # 0.6 (0.1-0.6); MONO % 9.5 % (1.0-6.0); RED CELL DISTRIBUTION WIDTH 16.9 % (11.5-14.5); WHITE BLOOD COUNT 5.8 10^3/ul (4.5-11.0)
[2017-02-08 08:13] LABS: BLOOD UREA NITROGEN 10 mg/dL (7-21); CALCIUM 8.9 mg/dL (8.4-10.5); CARBON DIOXIDE 27 mmol/L (21-33); CHLORIDE 109 mmol/L (98-107); GFR AFRICAN-AMERICAN > 60; GLUCOSE,RANDOM 99 mg/dL (70-110); POTASSIUM 3.6 mmol/L (3.6-5.0); SODIUM 145 mmol/L (132-148)
[2017-02-08] MEDS ORDERED: DiphenhydrAMINE 50 mg/ml Inj IVP STA (09:19)
--- NOTE | 2017-02-08 09:22 | CP.PCM.PN ---
Subjective - Date & Time of Evaluation Date of Evaluation: 02/08/17 Time of Evaluation: 06:50 - Subjective Subjective: Heme/Onc progress note for Dr Jenkins's service. Patient received 2 units of prbc yesterday with no events. Patient states the right knee pain is improving, wants to start PT. The hemovac removed, no bleeding noted on the dressing. Denies fever, chills, nausea, vomiting or diarrhea. Objective - Vital Signs/Intake and Output Vital Signs (last 24 hours): Temp Pulse Resp BP Pulse Ox 98.6 F 73 18 114/68 100 02/07/17 16:29 02/07/17 16:29 02/07/17 16:29 02/07/17 16:29 02/07/17 16:00 Intake and Output: 02/08/17 02/08/17 06:59 18:59 Intake Total 480 Output Total 900 Balance -420 - Medications Medications: Current Medications Acetaminophen (Tylenol 325mg Tab) 975 mg PO Q8H [facility] Last Admin: 02/08/17 00:31 Dose: 975 mg Acetaminophen (Tylenol 325mg Tab) 650 mg PO ONCE ONE Stop: 02/08/17 09:31 Aspirin (Ecotrin) 81 mg PO DAILY [facility] Last Admin: 02/07/17 09:40 Dose: 81 mg Cyproheptadine HCl (Periactin) 4 mg PO BID [facility] Last Admin: 02/07/17 17:57 Dose: 4 mg Diphenhydramine HCl (Benadryl) 25 mg IVP STAT STA Stop: 02/08/17 09:20 Docusate Sodium (Colace) 100 mg PO BID [facility] Last Admin: 02/07/17 19:11 Dose: Not Given Enoxaparin Sodium (Lovenox) 40 mg SC Q24H [facility] PRN Reason: Protocol Last Admin: 02/07/17 17:53 Dose: 40 mg Ergocalciferol (Drisdol 50,000 Intl Units Cap) 1 cap PO MON [facility] Furosemide (Lasix) 20 mg IVP ONCE ONE Stop: 02/08/17 09:22 Hydrocortisone Sodium Succinate (Solu-Cortef) 100 mg IVP ONCE ONE Stop: 02/08/17 09:20 Hydromorphone HCl (Dilaudid) 0.5 mg IVP Q4 PRN PRN Reason: Pain, severe (8-10) Last Admin: 02/08/17 05:35 Dose: 0.5 mg Cefazolin Sodium (Ancef 1gm In Ns) 1 gm in 100 mls @ 100 mls/hr IVPB Q8 [facility] PRN Reason: Protocol Last Admin: 02/08/17 05:35 Dose: 100 mls/hr Insulin Human Lispro (Humalog Low) 0 units SC ACHS [facility] PRN Reason: Protocol Last Admin: 02/08/17 08:28 Dose: Not Given Multivitamins/Minerals (Therapeutic-M Tab) 1 tab PO DAILY [facility] Last Admin: 02/07/17 09:40 Dose: 1 tab Nitrofurantoin Macrocrystals (Macrobid) 100 mg PO DAILY [facility] Last Admin: 02/07/17 09:40 Dose: 100 mg Fesoterodine Fumarate [Toviaz] 4 Mg 4 mg PO DAILY [facility] Last Admin: 02/07/17 19:12 Dose: Not Given Iron [Iron] 65 Mg 65 mg PO DAILY [facility] Last Admin: 02/07/17 19:12 Dose: Not Given Methenamine Hippurate [Hiprex] 1 Gm 1 gm PO DAILY [facility] Last Admin: 02/07/17 19:14 Dose: Not Given Sitagliptin Phos/Metformin Hcl [ Janumet 50-1,000 Mg Tablet] 1 tab PO BID [facility] Last Admin: 02/07/17 19:14 Dose: Not Given Tamsulosin HCl (Flomax) 0.4 mg PO DAILY [facility] Last Admin: 02/07/17 09:40 Dose: 0.4 mg - Labs Labs: 02/08/17 07:30 02/08/17 07:30 PT 12.2 SECONDS (9.4-12.5) 02/05/17 13:00 INR 1.11 (0.93-1.08) H 02/05/17 13:00 APTT 27.2 Seconds (25.1-36.5) 02/05/17 13:00 - Constitutional Appears: No Acute Distress - Head Exam Head Exam: ATRAUMATIC, NORMAL INSPECTION, NORMOCEPHALIC - Eye Exam Eye Exam: EOMI, Normal appearance, PERRL. absent: Scleral icterus - ENT Exam ENT Exam: Mucous Membranes Moist - Neck Exam Neck Exam: Normal Inspection - Respiratory Exam Respiratory Exam: Clear to Ausculation Bilateral, NORMAL BREATHING PATTERN. absent: Prolonged Expiratory Phase, Rales, Rhonchi, Wheezes, Respiratory Distress - Cardiovascular Exam Cardiovascular Exam: REGULAR RHYTHM, RRR, +S1, +S2, Murmur (sysatolic ) - GI/Abdominal Exam GI & Abdominal Exam: Soft, Normal Bowel Sounds. absent: Distended, Firm, Guarding, Rigid, Tenderness - Extremities Exam Additional comments: No pitting edema of the left lower extremities. Right leg and knee immobilized, with clean dressing. - Back Exam Back Exam: NORMAL INSPECTION - Neurological Exam Neurological Exam: Alert, Awake, Oriented x3 - Psychiatric Exam Psychiatric exam: Normal Affect, Normal Mood - Skin Skin Exam: Dry, Normal Color, Warm Assessment and Plan - Assessment and Plan (Free Text) Assessment: Mr. Bhardwaj is a 71 y/o male known to Dr Jenkins with PMH of stage IV SLL/CLL ( was on Imbruvica) and prostate cancer locally advanced s/p radiation and androgen blocked (neupron) admitted s/p right knee prosthetic joint infection revision s/p explant and spacer placement. Patient was on chemo ( Imbruvica) and eliquis which were all held in preparation of the surgery. Patient is post op day 3, s/p 2 units of prbc. Currently hemoglobin is 8.7. Plan: - Will transfuse 2 more units of prbc, each transfused over 3 hours, to aim for hgb of 10 in the setting of cardiac history. - Pre-medicate with benadryl, solucortef, and Tylenol to prevent TRALI. Lasix in between transfusion as BP tolerates. - On Lovenox for DVT prevention as per ortho, patient also has LLE compression device. - Patient is also iron po for anemia. - Continue to monitor for bleeding at the surgical site. Hemovac discontinued. - Patient is being followed by multiple services including ID and cardio. - On flomax for BPH/prostate ca, toviaz. - Abx as per ID. Patient seen, examined, and case discussed with Dr Allen.
[2017-02-08] MEDS: Multivitamin With Minerals Tab PO SCH (09:32)
[2017-02-08] MEDS: Fesoterodine Fumarate [Toviaz] 4 MG PO SCH (09:40)
[2017-02-08] MEDS: IRON 65 MG PO SCH (09:40)
[2017-02-08] MEDS: METFORMIN HCL PO SCH ×2 (09:41→18:01)
[2017-02-08] MEDS: SITAGLIPTIN PHOS PO SCH ×2 (09:41→18:01)
[2017-02-08] MEDS: Methenamine Hippurate [Hiprex] 1 GM PO SCH (09:41)
--- NOTE | 2017-02-08 10:41 | CP.PCM.PN ---
Subjective - Date & Time of Evaluation Date of Evaluation: 02/08/17 Time of Evaluation: 10:37 - Subjective Subjective: Pt feels better today. Afebrile R knee: incision clean small amount of bloody drainage on bandage no cellulitis NVI distally Hg 8.7 POD#3 Doing better. Discuss d/c plan with patient and Objective - Vital Signs/Intake and Output Vital Signs (last 24 hours): Temp Pulse Resp BP Pulse Ox 98.0 F 77 18 114/67 97 02/08/17 08:00 02/08/17 08:00 02/08/17 08:00 02/08/17 08:00 02/08/17 08:00 Intake and Output: 02/08/17 02/08/17 06:59 18:59 Intake Total 480 Output Total 900 Balance -420 - Medications Medications: Current Medications Acetaminophen (Tylenol 325mg Tab) 975 mg PO Q8H [facility] Last Admin: 02/08/17 09:31 Dose: 975 mg Aspirin (Ecotrin) 81 mg PO DAILY [facility] Last Admin: 02/08/17 09:34 Dose: 81 mg Cyproheptadine HCl (Periactin) 4 mg PO BID [facility] Last Admin: 02/08/17 09:32 Dose: 4 mg Docusate Sodium (Colace) 100 mg PO BID [facility] Last Admin: 02/08/17 09:33 Dose: 100 mg Enoxaparin Sodium (Lovenox) 40 mg SC Q24H [facility] PRN Reason: Protocol Last Admin: 02/07/17 17:53 Dose: 40 mg Ergocalciferol (Drisdol 50,000 Intl Units Cap) 1 cap PO MON [facility] Hydromorphone HCl (Dilaudid) 0.5 mg IVP Q4 PRN PRN Reason: Pain, severe (8-10) Last Admin: 02/08/17 05:35 Dose: 0.5 mg Cefazolin Sodium (Ancef 1gm In Ns) 1 gm in 100 mls @ 100 mls/hr IVPB Q8 [facility] PRN Reason: Protocol Last Admin: 02/08/17 05:35 Dose: 100 mls/hr Insulin Human Lispro (Humalog Low) 0 units SC ACHS [facility] PRN Reason: Protocol Last Admin: 02/08/17 08:28 Dose: Not Given Multivitamins/Minerals (Therapeutic-M Tab) 1 tab PO DAILY [facility] Last Admin: 02/08/17 09:32 Dose: 1 tab Nitrofurantoin Macrocrystals (Macrobid) 100 mg PO DAILY [facility] Last Admin: 02/08/17 09:34 Dose: 100 mg Fesoterodine Fumarate [Toviaz] 4 Mg 4 mg PO DAILY [facility] Last Admin: 02/08/17 09:40 Dose: Not Given Iron [Iron] 65 Mg 65 mg PO DAILY [facility] Last Admin: 02/08/17 09:40 Dose: Not Given Methenamine Hippurate [Hiprex] 1 Gm 1 gm PO DAILY [facility] Last Admin: 02/08/17 09:41 Dose: Not Given Sitagliptin Phos/Metformin Hcl [ Janumet 50-1,000 Mg Tablet] 1 tab PO BID [facility] Last Admin: 02/08/17 09:41 Dose: Not Given Tamsulosin HCl (Flomax) 0.4 mg PO DAILY [facility] Last Admin: 02/08/17 09:34 Dose: 0.4 mg - Labs Labs: 02/08/17 07:30 02/08/17 07:30 PT 12.2 SECONDS (9.4-12.5) 02/05/17 13:00 INR 1.11 (0.93-1.08) H 02/05/17 13:00 APTT 27.2 Seconds (25.1-36.5) 02/05/17 13:00
--- NOTE | 2017-02-08 13:52 | PN ---
DATE: 02/08/2017 LOCATION: The patient in room 577, bed 1. REASON FOR CONSULTATION AND FOLLOWUP: Coronary artery disease, diabetes mellitus, hyperlipidemia, history of CLL, status post knee arthroplasty. SUBJECTIVE: The patient denies any cardiac symptoms like chest pain, shortness of breath or palpitations. The patient is lying flat in bed without any symptoms. PHYSICAL EXAMINATION: VITAL SIGNS: Blood pressure 114/57, respirations 18, pulse 77, temperature 98.0. HEENT: Head is normocephalic. Eyes, pupils are normal. Conjunctivae pale. NECK: JVP is low. Carotids are equal. THORAX: AP diameter normal. LUNGS: Clear. CARDIOVASCULAR: S1 and S2. Systolic murmur, grade 2/6. No rub. ABDOMEN: Soft and nontender. No organomegaly. EXTREMITIES: No clubbing. No cyanosis. LABORATORY DATA: WBC is 5.8, hemoglobin 8.7, hematocrit 27.4, platelet 145. Sodium 145, potassium 3.6, BUN 10, creatinine 0.7, glucose 99, calcium 8.9. DIAGNOSES: Postop status post right knee arthroplasty, anemia, chronic lymphocytic leukemia; nonobstructive coronary artery disease on cardiac catheterization in 2011, stress test 08/2016 was negative, preserved LV function; history of prostatic cancer, diabetes, hypertension, and hyperlipidemia, status post blood transfusions for anemia. PLAN: The patient is on Ancef 1 g IV q. 8 hours, aspirin 81 mg daily, Flomax 0.4 daily, Lovenox 40 mg subcutaneous daily. We will continue present therapy. We will follow. Marcos Barboza MD
--- NOTE | 2017-02-08 17:05 | CP.PCM.PN ---
Subjective - Date & Time of Evaluation Date of Evaluation: 02/08/17 Time of Evaluation: 15:00 - Subjective Subjective: Infectious Disease Follow Up: February 08, 2017 71 yo AA male with extensive past medical history that includes 24 year history of CLL receiving chemotherapy from Dr. Jenkins, Prostate cancer s/p radiation, GERD, CAD, NIDDM Type II, and Hyperlipidemia. The patient taken to OR for right knee arthroplasty placement after having his prior right knee arthroplasty removed for infection. The patient underwent 6 weeks of IV antibiotics with good results. He was on Ancef and Vancomycin as an outpatient. No new issues since reimplantation. Objective - Vital Signs/Intake and Output Vital Signs (last 24 hours): Temp Pulse Resp BP Pulse Ox 98.4 F 82 20 131/70 97 02/08/17 15:02 02/08/17 15:02 02/08/17 15:02 02/08/17 15:02 02/08/17 08:00 Intake and Output: 02/08/17 02/08/17 06:59 18:59 Intake Total 480 720 Output Total 900 375 Balance -420 345 - Medications Medications: Current Medications Acetaminophen (Tylenol 325mg Tab) 975 mg PO Q8H [facility] Last Admin: 02/08/17 09:31 Dose: 975 mg Aspirin (Ecotrin) 81 mg PO DAILY [facility] Last Admin: 02/08/17 09:34 Dose: 81 mg Cyproheptadine HCl (Periactin) 4 mg PO BID [facility] Last Admin: 02/08/17 09:32 Dose: 4 mg Docusate Sodium (Colace) 100 mg PO BID [facility] Last Admin: 02/08/17 09:33 Dose: 100 mg Enoxaparin Sodium (Lovenox) 40 mg SC Q24H [facility] PRN Reason: Protocol Last Admin: 02/07/17 17:53 Dose: 40 mg Ergocalciferol (Drisdol 50,000 Intl Units Cap) 1 cap PO MON [facility] Hydromorphone HCl (Dilaudid) 0.5 mg IVP Q4 PRN PRN Reason: Pain, severe (8-10) Last Admin: 02/08/17 11:11 Dose: 0.5 mg Cefazolin Sodium (Ancef 1gm In Ns) 1 gm in 100 mls @ 100 mls/hr IVPB Q8 [facility] PRN Reason: Protocol Last Admin: 02/08/17 14:21 Dose: Not Given Insulin Human Lispro (Humalog Low) 0 units SC ACHS [facility] PRN Reason: Protocol Last Admin: 02/08/17 16:56 Dose: Not Given Multivitamins/Minerals (Therapeutic-M Tab) 1 tab PO DAILY [facility] Last Admin: 02/08/17 09:32 Dose: 1 tab Nitrofurantoin Macrocrystals (Macrobid) 100 mg PO DAILY [facility] Last Admin: 02/08/17 09:34 Dose: 100 mg Fesoterodine Fumarate [Toviaz] 4 Mg 4 mg PO DAILY [facility] Last Admin: 02/08/17 09:40 Dose: Not Given Iron [Iron] 65 Mg 65 mg PO DAILY [facility] Last Admin: 02/08/17 09:40 Dose: Not Given Methenamine Hippurate [Hiprex] 1 Gm 1 gm PO DAILY [facility] Last Admin: 02/08/17 09:41 Dose: Not Given Sitagliptin Phos/Metformin Hcl [ Janumet 50-1,000 Mg Tablet] 1 tab PO BID [facility] Last Admin: 02/08/17 09:41 Dose: Not Given Tamsulosin HCl (Flomax) 0.4 mg PO DAILY [facility] Last Admin: 02/08/17 09:34 Dose: 0.4 mg - Labs Labs: 02/08/17 07:30 02/08/17 07:30 PT 12.2 SECONDS (9.4-12.5) 02/05/17 13:00 INR 1.11 (0.93-1.08) H 02/05/17 13:00 APTT 27.2 Seconds (25.1-36.5) 02/05/17 13:00 - Constitutional Appears: Non-toxic, No Acute Distress, Chronically Ill - Head Exam Head Exam: ATRAUMATIC, NORMOCEPHALIC - Eye Exam Eye Exam: EOMI, PERRL Pupil Exam: NORMAL ACCOMODATION, PERRL - ENT Exam ENT Exam: Mucous Membranes Moist, Normal External Ear Exam, TM's Normal Bilaterally - Neck Exam Neck Exam: Full ROM, Normal Inspection - Respiratory Exam Respiratory Exam: Clear to Ausculation Bilateral, NORMAL BREATHING PATTERN. absent: Rales, Rhonchi, Wheezes - Cardiovascular Exam Cardiovascular Exam: REGULAR RHYTHM, RRR, +S1, +S2 - GI/Abdominal Exam GI & Abdominal Exam: Soft, Normal Bowel Sounds. absent: Distended, Tenderness - Extremities Exam Additional comments: s/p right knee arthroplasty. - Neurological Exam Neurological Exam: Alert, Awake, CN II-XII Intact, Oriented x3 - Psychiatric Exam Psychiatric exam: Normal Affect, Normal Mood - Skin Skin Exam: Intact, Normal Color Assessment and Plan - Assessment and Plan (Free Text) Assessment: 71 yo AA male with right knee arthroplasty done today. The patient has a history of CLL on chemotherapy, GERDs, HTN, NIDDM Type II. ESR prior to today' s surgery was under 40. He completed a 6 week course of IV antibiotics about 2- 3 weeks ago. Currently on the postsurgical Ancef. Patient is calm and collected now. States he is relatively comfortable at this time. Supportive care. May consider use of prophylactic antibiotic therapy given his multiple complications. Was on Ancef and Vancomycin as an outpatient. Can consider use of oral Augmentin 875mg BID for the next 4 weeks. Thank you for allowing me to participate in the care of the patient, we will follow with you.
[2017-02-08] MEDS: Enoxaparin 40 mg Syringe SC SCH (17:59)
[2017-02-08 19:01] VITALS: RESP 20
[2017-02-09 01:26] VITALS: O2SAT 99
[2017-02-09] MEDS: ceFAZolin 1 gm in NS 1 GM/100 ML BAG IVPB SCH (05:47)
[2017-02-09 06:39] VITALS: PULSE 75
[2017-02-09] MEDS: HYDROmorphone 0.5 mg/0.5 ml ISec IVP PRN (06:54)
[2017-02-09] MEDS: Insulin Lispro (humaLOG) LOW Coverage SC SCH ×2 (07:19→08:29)
[2017-02-09 08:03] LABS: BASO # 0.01 K/mm3 (0.0-2.0); BASO % 0.1 % (0.0-3.0); EOS % 0.4 % (1.5-5.0); GRAN # 2.24 (1.4-6.5); HEMATOCRIT 30.5 % (42.0-52.0); LYMPH # 3.8 (1.2-3.4); LYMPH % 56.6 % (22.0-35.0); MEAN CELL VOLUME 78.6 fl (80.0-105.0); MEAN CORPUSCULAR HEMOGLOBIN 25.5 pg (25.0-35.0); MEAN CORPUSCULAR HGB CONC 32.5 g/dl (31.0-37.0); MEAN PLATELET VOLUME 10.7 fl (7.0-11.0); MONO # 0.7 (0.1-0.6); MONO % 9.9 % (1.0-6.0); RED CELL DISTRIBUTION WIDTH 17.1 % (11.5-14.5); WHITE BLOOD COUNT 6.8 10^3/ul (4.5-11.0)
[2017-02-09 08:06] LABS: BLOOD UREA NITROGEN 9 mg/dL (7-21); CARBON DIOXIDE 30 mmol/L (21-33); CHLORIDE 108 mmol/L (98-107); GFR AFRICAN-AMERICAN > 60; GLUCOSE,RANDOM 97 mg/dL (70-110); POTASSIUM 3.6 mmol/L (3.6-5.0); SODIUM 145 mmol/L (132-148)
[2017-02-09 09:08] VITALS: BP 122/70; TEMP 98
[2017-02-09] MEDS: Multivitamin With Minerals Tab PO SCH (09:46)
[2017-02-09] MEDS: SITAGLIPTIN PHOS PO SCH (09:48)
[2017-02-09] MEDS: Methenamine Hippurate [Hiprex] 1 GM PO SCH (09:48)
[2017-02-09] MEDS: METFORMIN HCL PO SCH (09:48)
--- NOTE | 2017-02-09 16:02 | CP.PCM.PN ---
Subjective - Date & Time of Evaluation Date of Evaluation: 02/09/17 Time of Evaluation: 11:30 - Subjective Subjective: Infectious Disease Follow Up: February 09, 2017 71 yo AA male with extensive past medical history that includes 24 year history of CLL receiving chemotherapy from Dr. Jenkins, Prostate cancer s/p radiation, GERD, CAD, NIDDM Type II, and Hyperlipidemia. The patient taken to OR for right knee arthroplasty placement after having his prior right knee arthroplasty removed for infection. The patient underwent 6 weeks of IV antibiotics with good results. He was on Ancef and Vancomycin as an outpatient. No new issues since reimplantation. For discharge today. Objective - Vital Signs/Intake and Output Vital Signs (last 24 hours): Temp Pulse Resp BP Pulse Ox 98 F 75 20 122/70 99 02/09/17 09:44 02/09/17 09:44 02/09/17 09:44 02/09/17 09:44 02/09/17 09:44 Intake and Output: 02/09/17 02/09/17 06:59 18:59 Intake Total 775 Output Total 700 Balance 75 - Labs Labs: 02/09/17 07:00 02/09/17 07:00 PT 12.2 SECONDS (9.4-12.5) 02/05/17 13:00 INR 1.11 (0.93-1.08) H 02/05/17 13:00 APTT 27.2 Seconds (25.1-36.5) 02/05/17 13:00 - Constitutional Appears: Non-toxic, No Acute Distress, Chronically Ill - Head Exam Head Exam: ATRAUMATIC, NORMOCEPHALIC - Eye Exam Eye Exam: EOMI, PERRL Pupil Exam: NORMAL ACCOMODATION, PERRL - ENT Exam ENT Exam: Mucous Membranes Moist, Normal External Ear Exam, TM's Normal Bilaterally - Neck Exam Neck Exam: Full ROM, Normal Inspection - Respiratory Exam Respiratory Exam: Clear to Ausculation Bilateral, NORMAL BREATHING PATTERN. absent: Rales, Rhonchi, Wheezes - Cardiovascular Exam Cardiovascular Exam: REGULAR RHYTHM, RRR, +S1, +S2 - GI/Abdominal Exam GI & Abdominal Exam: Soft, Normal Bowel Sounds. absent: Distended, Tenderness - Extremities Exam Additional comments: s/p right knee arthroplasty. - Neurological Exam Neurological Exam: Alert, Awake, CN II-XII Intact, Oriented x3 - Psychiatric Exam Psychiatric exam: Normal Affect, Normal Mood - Skin Skin Exam: Intact, Normal Color Assessment and Plan - Assessment and Plan (Free Text) Assessment: 71 yo AA male with right knee arthroplasty done today. The patient has a history of CLL on chemotherapy, GERDs, HTN, NIDDM Type II. ESR prior to today' s surgery was under 40. He completed a 6 week course of IV antibiotics about 2- 3 weeks ago. Currently on the postsurgical Ancef. Patient is calm and collected now. States he is relatively comfortable at this time. Supportive care. May consider use of prophylactic antibiotic therapy given his multiple complications. Was on Ancef and Vancomycin as an outpatient. Can consider use of oral Augmentin 875mg BID for the next 4 weeks. Thank you for allowing me to participate in the care of the patient, we will follow with you.
--- NOTE | 2017-02-09 18:20 | PN ---
DATE: 02/09/2017 LOCATION: The patient is in room 577, bed 1. REASON FOR CONSULTATION: Coronary artery disease, diabetes, hyperlipidemia, history of CLL, status post knee arthroplasty. SUBJECTIVE: The patient denies any chest pain. No shortness of breath. No palpitation. Lying comfortably in bed without any cardiac symptoms. PHYSICAL EXAMINATION: VITAL SIGNS: Blood pressure 122/70, respirations 20, pulse 75, and temperature 98. HEENT: Head is normocephalic. Eyes; pupils are normal. Conjunctivae slightly pale. NECK: JVP is low. Carotids are equal. THORAX: AP diameter normal. LUNGS: Clear. CARDIOVASCULAR: S1 and S2. ABDOMEN: Soft. No tenderness. No organomegaly. EXTREMITIES: No clubbing. No cyanosis. LABORATORY DATA: WBC 6.0, hemoglobin 9.9, hematocrit 30.5, platelet 170. Sodium 145, potassium 3.6, BUN 9, creatinine 0.7, random sugar 122, calcium 9.0. DIAGNOSES: Postoperative status post right knee arthroplasty, anemia, chronic lymphocytic leukemia, nonobstructive coronary artery disease and cardiac catheterization in 2011, stress test August 2016 was negative, preserved left ventricular function, history of prostatic cancer, diabetes, hypertension, hyperlipidemia, status post blood transfusion, anemia. PLAN: Clinically, cardiac status is stable. The patient is asymptomatic from cardiac point of view. The patient is on Ancef 1 g IV q.8 hours, aspirin 81 mg daily, Flomax 0.4 daily, Lovenox 40 mg subcutaneous q.24 hours. We will continue to therapy. We will follow up. Marcos Barboza MD
--- NOTE | 2017-02-10 04:28 | PN ---
DATE: LOCATION: The patient is in room 577, bed 1. The patient is being discharged today. REASON FOR CONSULTATION: The patient is with stage IV CLL and SLL, ongoing therapy with ibrutinib; history of hypogammaglobulinemia with recurrent infection, on IV IgG; history of diabetes mellitus; coronary artery disease; hyperlipidemia; was admitted to the hospital after knee replacement of the right knee, after having a stormy course with prior episodes of possible infection in a prior knee replacement which had to be removed and now is being replaced with new device once the infection has been cleared after 6 weeks of antibiotic therapy. The patient is recovering post surgery and is going to go home with home physical therapy and on Lovenox for 14 days before resuming Eliquis as an outpatient. SUBJECTIVE: The patient denies any chest pain. No shortness of breath. He is lying in bed comfortably without any significant complaint, has the expected discomfort in the knee and the area around the tibia post surgery. The patient has pain medications at home which he will need to continue while he is undergoing therapy. PHYSICAL EXAMINATION: VITAL SIGNS: Stable. Blood pressure is 122/70, respirations 20, pulse 75, T-max is 98.4. HEENT: Head is normocephalic, atraumatic. Conjunctivae pale. Sclerae are anicteric. Pupils are equally reactive to light and accommodation. Examination of the oropharynx reveals no oropharyngeal lesions. NECK: Supple. There is no adenopathy. No jugular venous distention noted. LUNGS: Clear to percussion and auscultation. CARDIOVASCULAR: Examination of the heart reveals PMI to be in the fifth intercostal space and inside the midclavicular line. S1 and S2 are normal. No gallop or murmurs heard. ABDOMEN: Soft, nontender. Liver and spleen are not palpable anymore. There is no rebound, rigidity, or guarding noted. 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 Left arm is within normal limits. Lower extremities reveal no ankle edema. The patient is status post arthroplasty. Right knee is in dressing, where he had the arthroplasty. LABORATORY DATA: From today reveals a white count of 6, hemoglobin 9.9, hematocrit 30, platelet count of 170,000. The patient is transfused 2 units of blood yesterday. Continue to monitor his blood work when he is discharged as an outpatient. His K is 3.6, BUN is 9, creatinine 0.7, blood sugar is 122, calcium is 9. ASSESSMENT NOTES AND PLAN: The patient is status post right knee arthroplasty, anemia, stage IV chronic lymphocytic leukemia, small lymphocytic lymphoma, nonobstructive coronary artery disease, history of stage T1c carcinoma of the prostate status post neoadjuvant therapy.. History of hypogammaglobulinemia on IV IgG once a month; stage IV chronic lymphocytic leukemia and small lymphocytic lymphoma, currently on treatment with Imbruvica which is on hold in preparation for the surgery as it has tendency to cause bleeding diathesis. PLAN: The patient is being discharged today. Lengthy conversation with . He will continue the Lovenox for about 14 days post surgery. He will start and initiate his home physical therapy at least twice a day. I will request for labs to be drawn at home once a week for the next two weeks until he is able to come and see us as an outpatient. The patient has been through this in the past. He knows what his expectations are and what the outcomes will be as far as therapy is concerned. The patient is cognizant of all these facts and he is willing to undertake all those measures as an outpatient. Routine post-exam instructions have been given to the patient and the family. Time spent with the patient and with the on the phone more than 45 minutes. We will be following with the patient as an outpatient in the office. We will speak to Dr. Fritz as well as for the timing on the Eliquis when he goes off the Lovenox. Alonso Jenkins MD
[2017-02-11] MEDS ORDERED: Ergocalciferol 50,000 Intl Units Cap PO SCH (10:00)
== END 2017-02-09 13:56 | disposition home or self-care (01) | DRG 467 ==
LOC: SDAINP 12:24 → EDSTATUS 14:00 → 5RSO 21:47
PROVIDERS: ADMIT Orthopaedic Surgery; ATTEND Orthopaedic Surgery
PROC: 0SWC0JZ Revision of Synthetic Substitute in Right Knee Joint, Open Approach (ICD-10-PCS; principal; 2017-02-05 14:00)
DX: T84.53XA Infection and inflammatory reaction due to internal right knee prosthesis, initial encounter (principal); C91.10 Chronic lymphocytic leukemia of B-cell type not having achieved remission; C61 Malignant neoplasm of prostate; E83.42 Hypomagnesemia; D64.9 Anemia, unspecified; E11.9 Type 2 diabetes mellitus without complications; E78.5 Hyperlipidemia, unspecified; Y83.1 Surgical operation with implant of artificial internal device as the cause of abnormal reaction of the patient, or of later complication, without mention of misadventure at the time of the procedure; I10 Essential (primary) hypertension; I25.10 Atherosclerotic heart disease of native coronary artery without angina pectoris; K21.9 Gastro-esophageal reflux disease without esophagitis; Z79.82 Long term (current) use of aspirin; Z79.84 Long term (current) use of oral hypoglycemic drugs; Z80.1 Family history of malignant neoplasm of trachea, bronchus and lung; Z83.3 Family history of diabetes mellitus; Z85.46 Personal history of malignant neoplasm of prostate; Z92.3 Personal history of irradiation; Z92.21 Personal history of antineoplastic chemotherapy; Z87.891 Personal history of nicotine dependence; Z96.653 Presence of artificial knee joint, bilateral

== ENCOUNTER 2017-02-14 17:32 | Inpatient (IN) | payer BC, MEDICARE ==
[2017-02-14 17:33] VITALS: BMI 24.3
--- NOTE | 2017-02-14 18:15 | ED PDOC ---
Arrival/HPI - General Historian: Patient - History of Present Illness Symptom Onset: Sudden Symptom Course: Unchanged Activities at Onset: Rest Context: Home <Aleihsa Chisholm - Last Filed: 02/14/17 18:52> <Noé Mcguire - Last Filed: 02/14/17 21:24> - General Chief Complaint: Lower Extremity Problem/Injury Time Seen by Provider: 02/14/17 17:50 - History of Present Illness Narrative History of Present Illness (Text): 02/14/17 18:15 A 71 year old male, whose past medical history includes CLL, s/p right knee replacement, presents to the emergency department complaining of drainage from operative site. Patient was seen in orthopedist's office, Dr. Fritz, today. Dr. Fritz wanted patient to be directly admitted to hospital. Drainage is bloody. Patient denies any fever or any other complaints at this time. (Aleisha Chisholm) Past Medical History - Provider Review Nursing Documentation Reviewed: Yes - Infectious Disease Hx of Infectious Diseases: None - Tetanus Immunization Tetanus Immunization: >10 years Ago - Cardiac Hx Cardiac Disorders: Yes Hx Hypertension: Yes - Pulmonary Hx Respiratory Disorders: No (SMOKED CIGARETTES PK 1/2 QUIT 30 YRS AGO) - Neurological Hx Paralysis: No - HEENT Hx HEENT Disorder: No - Renal Hx Renal Disorder: No - Endocrine/Metabolic Hx Endocrine Disorders: Yes - Hematological/Oncological Hx Blood Transfusions: Yes - Integumentary Hx Dermatological Disorder: No - Musculoskeletal/Rheumatological Hx Arthritis: Yes - Gastrointestinal Hx Gastrointestinal Disorders: No Hx Crohn's Disease: No - Genitourinary/Gynecological Hx Genitourinary Disorders: Yes Hx Prostate Cancer: Yes Hx Prostate Problems: Yes (prostate ca) - Psychiatric Hx Emotional Abuse: No Hx Physical Abuse: No Hx Substance Use: No - Surgical History Hx Orthopedic Surgery: Yes (b/l knee sx) - Anesthesia Hx Anesthesia Reactions: No - Suicidal Assessment Feels Threatened In Home Enviroment: No <Aleisha Chisholm - Last Filed: 02/14/17 18:52> Family/Social History - Physician Review Nursing Documentation Reviewed: Yes Family/Social History: No Known Family HX Smoking Status: Former Smoker Hx Alcohol Use: Yes (QUIT. ETOH USE .QUIT 35 YRS AGO) Hx Substance Use: No Hx Substance Use Treatment: No <Aleisha Chisholm - Last Filed: 02/14/17 18:52> Allergies/Home Meds <Aleisha Chisholm - Last Filed: 02/14/17 18:52> <Noé Mcguire - Last Filed: 02/14/17 21:24> Allergies/Adverse Reactions: Allergies No Known Allergies Allergy (Verified 02/14/17 17:44) Home Medications: Home Meds Medication Instructions Recorded Confirmed Unobtainable 02/14/17 02/14/17 Review of Systems - Physician Review All systems were reviewed & negative as marked: Yes - Review of Systems Constitutional: absent: Fevers Skin: Other (right knee operative site drainage) <Aleisha Chisholm - Last Filed: 02/14/17 18:52> Physical Exam Vital Signs Reviewed: Yes Temperature: Afebrile Blood Pressure: Normal Pulse: Tachycardic Respiratory Rate: Normal Appearance: Positive for: Non-Toxic, Comfortable, Other (thin, elderly ) Pain Distress: None Mental Status: Positive for: Alert and Oriented X 3 - Systems Exam Head: Present: Atraumatic, Normocephalic Pupils: Present: PERRL Extroacular Muscles: Present: EOMI Conjunctiva: Present: Normal Mouth: Present: Moist Mucous Membranes Neck: Present: Normal Range of Motion Respiratory/Chest: Present: Clear to Auscultation, Good Air Exchange. No: Respiratory Distress, Accessory Muscle Use Cardiovascular: Present: Regular Rate and Rhythm, Normal S1, S2. No: Murmurs Abdomen: Present: Normal Bowel Sounds. No: Tenderness, Distention, Peritoneal Signs Back: Present: Normal Inspection Upper Extremity: Present: Normal Inspection. No: Cyanosis, Edema Lower Extremity: Present: Other (freshly sutured operative site to right knee, oozing bloody drainage; open area 2 cm at bottom of incision; incision approximately 14 cm; joint is swollen, but not hot or red) Neurological: Present: GCS=15, CN II-XII Intact, Speech Normal Skin: Present: Warm, Dry, Normal Color. No: Rashes Psychiatric: Present: Alert, Oriented x 3, Normal Insight, Normal Concentration <Aleisha Chisholm - Last Filed: 02/14/17 18:52> Vital Signs Temp Pulse Resp BP Pulse Ox 02/14/17 21:23 89 17 132/66 98 02/14/17 17:44 97.8 F 106 H 18 123/75 100 Medical Decision Making - Transfer of Care Patient signed out to Dr:: Kimberly- check labs and admit to Dr Masters <Aleisha Chisholm - Last Filed: 02/14/17 18:52> - EKG Interpretation Interpreted by ED Physician: Yes (NSR, flipped t waves avr, avl, v1, v2, v3) <Noé Mcguire - Last Filed: 02/14/17 21:24> ED Course and Treatment: 02/14/17 18:12 Impression: A 71 year old male s/p right knee replacement with drainage from operative site. Plan: -- Reassess and disposition Prior Visits: Notes and results from previous visits were reviewed. Patient was last seen in the emergency department on 03/07/16 for evaluation of subjective fever and generalized body aches. Progress Notes: (Aleisha Chisholm) - Lab Interpretations Lab Results: 02/14/17 18:53 02/14/17 18:53 Lab Results 02/14/17 18:55: Blood Type O POSITIVE, Antibody Screen Negative, BBK History Checked Patient has bt 02/14/17 18:53: PT 13.5 H, INR 1.23 H, APTT 26.9 02/14/17 18:53: WBC 6.2, RBC 4.28, Hgb 10.7 L, Hct 34.4 L, MCV 80.4, MCH 25.0, MCHC 31.1, RDW 17.2 H, Plt Count 202, MPV 10.4, Gran % 51.7, Lymph % (Auto) 40.7 H, Moffat % (Auto) 7.1 H, Eos % (Auto) 0.2 L, Baso % (Auto) 0.3, Gran # 3.20 , Lymph # 2.5, Moffat # 0.4, Eos # 0.0, Baso # 0.02 02/14/17 18:53: Sodium 138, Potassium 4.0, Chloride 102, Carbon Dioxide 24, Anion Gap 16, BUN 11, Creatinine 1.0, Est GFR ( Amer) > 60, Est GFR (Non- Af Amer) > 60, Random Glucose 116 H, Calcium 9.4, Magnesium 1.6 L, Total Bilirubin 0.8, AST 66 H D, ALT 64 H, Alkaline Phosphatase 127 H D, Total Protein 6.9, Albumin 3.7, Globulin 3.1, Albumin/Globulin Ratio 1.2 - RAD Interpretation Radiology Orders: 02/14/17 21:07 CHEST PORTABLE [RAD] Stat - Medication Orders Current Medication Orders: Insulin Human Regular (Humulin R Low) 0 units SC ACHS SHMUEL PRN Reason: Protocol Morphine Sulfate (Morphine) 2 mg IVP Q3 PRN PRN Reason: Pain, moderate (4-7) Ondansetron HCl (Zofran Inj) 4 mg IVP Q8 PRN PRN Reason: Nausea/Vomiting Discontinued Medications Amoxicillin/Clavulanate Potassium (Augmentin 875 Mg-125 Mg Tab) 1 tab PO STAT STA PRN Reason: Protocol Stop: 02/14/17 20:25 Last Admin: 02/14/17 20:52 Dose: 1 tab Magnesium Sulfate/Dextrose (Magnesium Sulfate 1 Gm/100 Ml D5w) 1 gm in 100 mls @ 100 mls/hr IVPB ONCE ONE Stop: 02/14/17 21:03 Last Admin: 02/14/17 20:31 Dose: 100 mls/hr eMAR Start Stop Document 02/14/17 20:31 IT (Rec: 02/14/17 20:31 IT [id number]) Intravenous Solution Start Date 02/14/17 Start Time 20:31 End Date 02/14/17 End time 21:31 Total Infusion Time 60 Morphine Sulfate (Morphine) 2 mg IVP STAT STA Stop: 02/14/17 20:16 Last Admin: 02/14/17 20:31 Dose: 2 mg MAR Pain Assessment Document 02/14/17 20:31 IT (Rec: 02/14/17 20:31 IT [id number]) Pain Reassessment Is this a pain reassessment? No Sleep Is patient sleeping during reassessment? No Presence of Pain Presence of Pain Yes Pain Scale Used Pain Scale Used Numeric Location Left, Right or Bilateral Right Pain Location Body Site Knee IVP Administration Document 02/14/17 20:31 IT (Rec: 02/14/17 20:31 IT [id number]) Charges for Administration # of IVP Administrations 1 Ondansetron HCl (Zofran Inj) 4 mg IVP STAT STA Stop: 02/14/17 20:17 Last Admin: 02/14/17 20:31 Dose: 4 mg IVP Administration Document 02/14/17 20:31 IT (Rec: 02/14/17 20:31 IT [id number]) Charges for Administration # of IVP Administrations 1 Oxycodone HCl (Oxycodone Immediate Release Tab) 10 mg PO STAT STA Stop: 02/14/17 18:56 Last Admin: 02/14/17 19:08 Dose: 10 mg MAR Pain Assessment Document 02/14/17 19:08 OCS (Rec: 02/14/17 19:10 OCS [id number]) Pain Reassessment Is this a pain reassessment? Yes Sleep Is patient sleeping during reassessment? No Presence of Pain Presence of Pain Yes Pain Scale Used Pain Scale Used Numeric Location Left, Right or Bilateral Right Pain Location Body Site Knee Description Description Constant Intensity of Pain at present 10 Pain Behavior Moaning Irritability Aggravating Factors ADL's Alleviating Factors/Management Medication Techniques - Scribe Statement The provider has reviewed the documentation as recorded by the Scribe <Aleisha Chisholm - Last Filed: 02/14/17 18:52> <Noé Mcguire - Last Filed: 02/14/17 21:24> - Scribe Statement Krishan Bolivar Provider Scribe Attestation: All medical record entries made by the Scribe were at my direction and personally dictated by me. I have reviewed the chart and agree that the record accurately reflects my personal performance of the history, physical exam, medical decision making, and the department course for this patient. I have also personally directed, reviewed, and agree with the discharge instructions and disposition. (Aleisha Chisholm) Disposition/Present on Arrival - Present on Arrival History of DVT/PE: No History of Uncontrolled Diabetes: No Urinary Catheter: No History of Decub. Ulcer: No History Surgical Site Infection Following: None <Aleisha Chisholm - Last Filed: 02/14/17 18:52> <Noé Mcguire - Last Filed: 02/14/17 21:24> - Disposition Diagnosis: Hemorrhagic prepatellar bursitis of right knee Disposition: HOSPITALIZED Condition: IMPROVED Referrals: Ang Moreno MD [Primary Care Provider] - Follow up with primary Forms: [employer] (Peruvian)
[2017-02-14] MEDS ORDERED: oxyCODONE 10 mg Immediate Release Tab PO STA (18:51)
[2017-02-14] MEDS ORDERED: oxyCODONE 5 mg Immediate Release Tab PO STA (18:55)
[2017-02-14 19:03] LABS: BASO # 0.02 K/mm3 (0.0-2.0); BASO % 0.3 % (0.0-3.0); EOS % 0.2 % (1.5-5.0); GRAN # 3.2 (1.4-6.5); GRAN % 51.7 % (50.0-68.0); HEMATOCRIT 34.4 % (42.0-52.0); LYMPH # 2.5 (1.2-3.4); LYMPH % 40.7 % (22.0-35.0); MEAN CELL VOLUME 80.4 fl (80.0-105.0); MEAN CORPUSCULAR HGB CONC 31.1 g/dl (31.0-37.0); MEAN PLATELET VOLUME 10.4 fl (7.0-11.0); MONO # 0.4 (0.1-0.6); MONO % 7.1 % (1.0-6.0); RED CELL DISTRIBUTION WIDTH 17.2 % (11.5-14.5); WHITE BLOOD COUNT 6.2 10^3/ul (4.5-11.0)
[2017-02-14 19:20] LABS: INR 1.23 (0.93-1.08); PARTIAL THROMBOPLASTIN TIME 26.9 Seconds (25.1-36.5)
[2017-02-14 19:45] LABS: ALB/GLOB RATIO 1.2 (1.1-1.8); ALKALINE PHOSPHATASE 127 U/L (38-126); ALT/SGPT 64 U/L (7-56); AST/SGOT 66 U/L (17-59); BILIRUBIN,TOTAL 0.8 mg/dL (0.2-1.3); BLOOD UREA NITROGEN 11 mg/dL (7-21); CALCIUM 9.4 mg/dL (8.4-10.5); CARBON DIOXIDE 24 mmol/L (21-33); CHLORIDE 102 mmol/L (98-107); GFR AFRICAN-AMERICAN > 60; GLUCOSE,RANDOM 116 mg/dL (70-110); MAGNESIUM 1.6 mg/dL (1.7-2.2); SODIUM 138 mmol/L (132-148); TOTAL PROTEIN 6.9 g/dL (5.8-8.3)
[2017-02-14] MEDS ORDERED: Magnesium Sulfate 1 gm in D5W 1 GM/100 ML BAG IVPB ONE (20:04)
[2017-02-14] MEDS ORDERED: Morphine 2 mg/ml ISec IVP STA (20:15)
[2017-02-14] MEDS ORDERED: Amoxicillin-Clav 875-125 mg Tab PO STA (20:24)
--- NOTE | 2017-02-14 20:33 | ED PDOC ---
Physical Exam Vital Signs Reviewed: Yes Vital Signs Temp Pulse Resp BP Pulse Ox 02/14/17 17:44 97.8 F 106 H 18 123/75 100 Temperature: Afebrile Blood Pressure: Hypertensive Pulse: Tachycardic Respiratory Rate: Normal Appearance: Positive for: Uncomfortable Pain Distress: Mild Mental Status: Positive for: Alert and Oriented X 3 Medical Decision Making ED Course and Treatment: case signed out by Dr. Chisholm regarding d/w dr. rojas s/p right knee operation, fu labs, mg 1.6 replaced, and pt on augmentin which dr. rojas wanted ordered. npo at midnight, dr. kumar consult for pt ca hx. no lactic acid or blood cxs or intravenous abx and plan for washout tomorrow. admit to dr. masters. paged at this time. 02/14/17 20:30 02/14/17 20:53 Dr. Masters who stated can admit the patient for right knee washout. low dose sliding scale, morphine, zofran prn orders. pt takes lasix 20mg in am, janumet 50/100 in am, lovenox 40mg in am. 02/14/17 21:06 - Lab Interpretations Lab Results: 02/14/17 18:53 02/14/17 18:53 Lab Results 02/14/17 18:55: Blood Type O POSITIVE, Antibody Screen Negative, BBK History Checked Patient has bt 02/14/17 18:53: PT 13.5 H, INR 1.23 H, APTT 26.9 02/14/17 18:53: WBC 6.2, RBC 4.28, Hgb 10.7 L, Hct 34.4 L, MCV 80.4, MCH 25.0, MCHC 31.1, RDW 17.2 H, Plt Count 202, MPV 10.4, Gran % 51.7, Lymph % (Auto) 40.7 H, Stoddard % (Auto) 7.1 H, Eos % (Auto) 0.2 L, Baso % (Auto) 0.3, Gran # 3.20 , Lymph # 2.5, Stoddard # 0.4, Eos # 0.0, Baso # 0.02 02/14/17 18:53: Sodium 138, Potassium 4.0, Chloride 102, Carbon Dioxide 24, Anion Gap 16, BUN 11, Creatinine 1.0, Est GFR ( Amer) > 60, Est GFR (Non- Af Amer) > 60, Random Glucose 116 H, Calcium 9.4, Magnesium 1.6 L, Total Bilirubin 0.8, AST 66 H D, ALT 64 H, Alkaline Phosphatase 127 H D, Total Protein 6.9, Albumin 3.7, Globulin 3.1, Albumin/Globulin Ratio 1.2 - Medication Orders Current Medication Orders: Magnesium Sulfate/Dextrose (Magnesium Sulfate 1 Gm/100 Ml D5w) 1 gm in 100 mls @ 100 mls/hr IVPB ONCE ONE Stop: 02/14/17 21:03 Last Admin: 02/14/17 20:31 Dose: 100 mls/hr eMAR Start Stop Document 02/14/17 20:31 IT (Rec: 02/14/17 20:31 [id number] Intravenous Solution Start Date 02/14/17 Start Time 20:31 End Date 02/14/17 End time 21:31 Total Infusion Time 60 Discontinued Medications Amoxicillin/Clavulanate Potassium (Augmentin 875 Mg-125 Mg Tab) 1 tab PO STAT STA PRN Reason: Protocol Stop: 02/14/17 20:25 Last Admin: 02/14/17 20:52 Dose: 1 tab Morphine Sulfate (Morphine) 2 mg IVP STAT STA Stop: 02/14/17 20:16 Last Admin: 02/14/17 20:31 Dose: 2 mg MAR Pain Assessment Document 02/14/17 20:31 IT (Rec: 02/14/17 20:31 [id number]) Pain Reassessment Is this a pain reassessment? No Sleep Is patient sleeping during reassessment? No Presence of Pain Presence of Pain Yes Pain Scale Used Pain Scale Used Numeric Location Left, Right or Bilateral Right Pain Location Body Site Knee IVP Administration Document 02/14/17 20:31 IT (Rec: 02/14/17 20:31 [id number]) Charges for Administration # of IVP Administrations 1 Ondansetron HCl (Zofran Inj) 4 mg IVP STAT STA Stop: 02/14/17 20:17 Last Admin: 02/14/17 20:31 Dose: 4 mg IVP Administration Document 02/14/17 20:31 IT (Rec: 02/14/17 20:31 IT [id number]) Charges for Administration # of IVP Administrations 1 Oxycodone HCl (Oxycodone Immediate Release Tab) 10 mg PO STAT STA Stop: 02/14/17 18:56 Last Admin: 02/14/17 19:08 Dose: 10 mg MAR Pain Assessment Document 02/14/17 19:08 OCS (Rec: 02/14/17 19:10 OCS [id number]) Pain Reassessment Is this a pain reassessment? Yes Sleep Is patient sleeping during reassessment? No Presence of Pain Presence of Pain Yes Pain Scale Used Pain Scale Used Numeric Location Left, Right or Bilateral Right Pain Location Body Site Knee Description Description Constant Intensity of Pain at present 10 Pain Behavior Moaning Irritability Aggravating Factors ADL's Alleviating Factors/Management Medication Techniques Disposition/Present on Arrival - Present on Arrival Any Indicators Present on Arrival: No History of DVT/PE: No History of Uncontrolled Diabetes: No Urinary Catheter: No History of Decub. Ulcer: No History Surgical Site Infection Following: None - Disposition Have Diagnosis and Disposition been Completed?: Yes Diagnosis: Hemorrhagic prepatellar bursitis of right knee Disposition: HOSPITALIZED Disposition Time: 21:07 Patient Plan: Admission Condition: IMPROVED Referrals: Ang Moreno MD [Primary Care Provider] - Follow up with primary Forms: [employer] (Ukrainian)
[2017-02-14] MEDS: Insulin Reg-LOW-Coverage SC SCH (23:32)
[2017-02-15] MEDS: Morphine 2 mg/ml ISec IVP PRN ×3 (00:05→21:00)
[2017-02-15 06:59] LABS: INR 1.14 (0.93-1.08); PARTIAL THROMBOPLASTIN TIME 26.9 Seconds (25.1-36.5)
[2017-02-15 07:43] LABS: ALB/GLOB RATIO 1.2 (1.1-1.8); ALKALINE PHOSPHATASE 96 U/L (38-126); ALT/SGPT 58 U/L (7-56); AST/SGOT 60 U/L (17-59); BILIRUBIN,TOTAL 0.6 mg/dL (0.2-1.3); BLOOD UREA NITROGEN 10 mg/dL (7-21); CALCIUM 9.1 mg/dL (8.4-10.5); CARBON DIOXIDE 27 mmol/L (21-33); CHLORIDE 104 mmol/L (98-107); GFR AFRICAN-AMERICAN > 60; GLUCOSE,RANDOM 104 mg/dL (70-110); POTASSIUM 3.7 mmol/L (3.6-5.0); SODIUM 141 mmol/L (132-148); TOTAL PROTEIN 5.9 g/dL (5.8-8.3)
[2017-02-15 07:54] LABS: BASO # 0.03 K/mm3 (0.0-2.0); BASO % 0.5 % (0.0-3.0); EOS % 0.7 % (1.5-5.0); GRAN # 1.66 (1.4-6.5); GRAN % 28.2 % (50.0-68.0); HEMATOCRIT 31.5 % (42.0-52.0); LYMPH # 3.3 (1.2-3.4); LYMPH % 55.2 % (22.0-35.0); MEAN CELL VOLUME 80.6 fl (80.0-105.0); MEAN CORPUSCULAR HEMOGLOBIN 24.6 pg (25.0-35.0); MEAN CORPUSCULAR HGB CONC 30.5 g/dl (31.0-37.0); MEAN PLATELET VOLUME 10.6 fl (7.0-11.0); MONO # 0.9 (0.1-0.6); MONO % 15.4 % (1.0-6.0); RED CELL DISTRIBUTION WIDTH 17.4 % (11.5-14.5); WHITE BLOOD COUNT 5.9 10^3/ul (4.5-11.0)
[2017-02-15] MEDS: Insulin Reg-LOW-Coverage SC SCH ×3 (08:34→22:30)
--- NOTE | 2017-02-15 09:27 | RAD ---
HISTORY: pre-op COMPARISON: 03/07/2016 FINDINGS: LUNGS: No infiltrate. Linear opacity at left base likely scar versus atelectasis. PLEURA: No significant pleural effusion identified, no pneumothorax apparent. CARDIOVASCULAR: Right central venous infusion port new since prior examination. OSSEOUS STRUCTURES: No significant abnormalities. VISUALIZED UPPER ABDOMEN: Normal. OTHER FINDINGS: None. IMPRESSION: Left basilar linear scar/ atelectasis. No acute infiltrate.
--- NOTE | 2017-02-15 10:25 | CARD ---
APPROVED REPORT EKG Measurement Heart [id number] <Conclusion> Normal sinus rhythm LAD NSSTW changes Prolonged QTc T wave inversions V 3 - 4 are new
[2017-02-15] MEDS ORDERED: Propofol 10 mg/ml Inj (20 ML) ONE (15:24)
[2017-02-15] MEDS ORDERED: Midazolam 2 MG/2 ML VIAL ONE (15:24)
[2017-02-15] MEDS ORDERED: Vancomycin 1 g Inj ONE (16:06)
[2017-02-15] MEDS ORDERED: HYDROmorphone 0.5 mg/0.5 ml ISec IVP PRN (17:19)
[2017-02-15] MEDS: HYDROmorphone 0.5 mg/0.5 ml ISec ONE ×2 (17:36→18:20)
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
[2017-02-15] MEDS ORDERED: HYDROmorphone 0.5 mg/0.5 ml ISec ONE (18:20)
[2017-02-15] MEDS: ceFAZolin 1 gm in NS 1 GM/100 ML BAG IVPB SCH (22:30)
--- NOTE | 2017-02-15 23:47 | HP ---
DATE: 02/15/[address] Jenkins. CHIEF COMPLAINT: Hemarthrosis. HISTORY OF PRESENT ILLNESS: The patient is a 71-year-old male referred by Dr. Fritz, his orthopedic surgeon to be admitted via the Emergency Room to Dr. Jenkins's service after the patient reports he was doing physiotherapy at home with some bloody discharge at the side of his surgery on his right knee. Eventually, the dressing was soaked and the bleeding he reports perfusing, persistent. He was then recommended by Dr. Fritz to go to Emergency Room for admission and for a "wash out of bleeding in the joint." It was also recommended to give him one dose of Augmentin orally and to have no other IV antibiotics as per Dr. Fritz, also patient was taking Lovenox 40 mg subcu on a daily basis. This was recommended to be discontinued by Dr. Jenkins in anticipation of any procedures by Dr. Fritz recommended for today. He will be n.p.o. after midnight along with IV of normal saline with 10 mEq of potassium to run at 70 mL an hour in the interim. The patient is known to suffer from CLL, and the patient did have IV gamma globulin prior to his stage IV CLL with patient recommended to have IV gamma globulin prior to his procedure by Dr. Fritz recently with the patient, then noted to have significant anemic indices with 4 units of packed red blood cells transfused and was referred to the previous admission for this patient for further information. Patient at present seen resting in bed with his son at the bedside and in no acute distress reporting his analgesics help his pain. ALLERGIES: PATIENT HAS NO KNOWN ALLERGIES. MEDICATIONS: His medications will be reviewed. They did include Periactin, Benadryl, Colace, vitamin D, Macrobid, Hiprex, Flomax, metformin, Janumet, multivitamin, insulin. 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 He also is status post tooth extractions and right Perm-A-Cath. FAMILY HISTORY AND SOCIAL HISTORY: A 35 pack year history of smoking, quit 26 years ago. Denies alcohol use. REVIEW OF SYSTEMS: A 12-point review of systems was done, which was negative to questioning except for items mentioned in the history of present illness above. OBJECTIVE/PHYSICAL EXAMINATION: VITAL SIGNS: Temperature 98.8, pulse 76, respirations 18, blood pressure 111/69, and pulse ox 97%. HEENT: Unremarkable. NECK: Supple. HEART: Regular rate. LUNGS: Clear. ABDOMEN: Obese, soft, nontender. EXTREMITIES: No edema, status post trauma to the right hand with claw-like ball sorter there. NEUROLOGIC: Awake, alert, and oriented. SKIN: Otherwise warm, dry, and clear. LABORATORY DATA: The patient had a chest x-ray done yesterday that was read as left basilar linear scar. No acute infiltrate. An EKG done yesterday was read as normal sinus rhythm, left axis deviation, nonspecific T-wave changes, prolonged QTC, T-wave inversion in V3, V4 were knew. Patient's labs were done they include white blood cell count of 5.9, hemoglobin of 9.6, hematocrit of 31.5, platelet count 208,000. INR is 1.14 with chem metabolic panel showing an AST of 60, ALT of 58, otherwise, normal chem metabolic panel. ASSESSMENT AND PLAN: The plan for this patient after conversation with Dr. Jenkins is to as per consult with Dr. Farnsworth, his chief librarian extension department, also would follow up as per Dr. Fritz for his plans, wash out of the bleeding in the joint. We will hold his Lovenox, n.p.o. after midnight. We will also put him on sliding scale low insulin coverage along with morphine 2 mg IV q. 3 hours p.r.n. for his severe pain with Zofran as needed for nausea with his IV fluids trend at 70 mL an hour, normal saline with 10 mEq of potassium at 70 mL an hour. With this, his other medications will be restarted after his surgery as indicated. Prognosis for this patient is guarded. We will monitor clinically and with labs. Jean Paul Ramos MD
[2017-02-16] MEDS: Morphine 2 mg/ml ISec IVP PRN ×5 (00:17→19:03)
--- NOTE | 2017-02-16 01:53 | OP ---
PROCEDURE DATE: 02/15/2017 PREOPERATIVE DIAGNOSIS: Right knee hematoma, status post revision right total knee replacement. POSTOPERATIVE DIAGNOSIS: Right knee hematoma, status post revision right total knee replacement. PROCEDURE: Irrigation and debridement of the right knee with evacuation of hematoma and application of wound vacuum-assisted closure. TYPE OF ANESTHESIA: General. COMPLICATIONS: None. ESTIMATED BLOOD LOSS: 30 mL. TOURNIQUET TIME: 58 minutes at 300 mmHg. INDICATION FOR PROCEDURE: This is a 71-year-old gentleman who approximately 10 days ago underwent a revision of right total knee replacement. Postoperatively, the patient did well and was discharged home and yesterday he after session of physical therapy, he felt he had an immediate swelling and a suture pop. He subsequently developed significant amount of swelling and recommendations are for open wound exploration, irrigation and debridement of right knee hematoma. The risks and benefits were discussed including the possibility of infection and informed consent was obtained. OPERATIVE PROCEDURE: After the surgical site was signed and verified in the preoperative holding area, the patient was taken to the operating room and placed supine on the operating room table. After administration of general anesthesia, the patient received 2 g of Ancef IV. Tourniquet was placed about the right thigh. Care was taken to make sure all bony prominences and nerves were well padded and protected. Venodyne boot was placed on the nonoperative extremity and the right lower extremity was prepped and draped in usual sterile fashion. Approximately three quarters of the previous incision was re-incised and the sutures were removed and once the wound was reopened, there was a copious amount of hematoma, no growth, active bleeding was appreciated. At this point, the hematoma was evacuated and the wound was inspected for any active bleeding. No obvious bleeding was identified and no growth purulence was identified. The hardware appeared to be intact and stable. The extensive mechanism was evaluated and appeared to be intact. Previous arthrotomy incision was intact. The joint was inspected to the large lateral release that have previously been done. The knee was taken to a range of motion and again was noted to be stable. At this point, the knee joint was irrigated with 6 L of antibiotic saline solution. sheet was placed as well as our gloves were changed, and at this point, the incision was closed using interrupted 2-0 Vicryl suture and 3-0 nylon. The closure was performed and ANABELLE wound VAC was applied. A sterile dressing was placed over the wound VAC and knee immobilizer was placed. The patient was awakened from the procedure and taken to the recovery room in stable condition. Josh Fritz MD
[2017-02-16] MEDS: ceFAZolin 1 gm in NS 1 GM/100 ML BAG IVPB SCH ×3 (05:52→22:20)
[2017-02-16 07:20] LABS: BASO # 0.03 K/mm3 (0.0-2.0); BASO % 0.5 % (0.0-3.0); EOS % 0.3 % (1.5-5.0); GRAN # 2.96 (1.4-6.5); GRAN % 49.7 % (50.0-68.0); HEMATOCRIT 29.9 % (42.0-52.0); LYMPH # 2.1 (1.2-3.4); LYMPH % 35.6 % (22.0-35.0); MEAN CELL VOLUME 80.6 fl (80.0-105.0); MEAN CORPUSCULAR HEMOGLOBIN 25.3 pg (25.0-35.0); MEAN CORPUSCULAR HGB CONC 31.4 g/dl (31.0-37.0); MEAN PLATELET VOLUME 10.6 fl (7.0-11.0); MONO # 0.8 (0.1-0.6); MONO % 13.9 % (1.0-6.0); RED CELL DISTRIBUTION WIDTH 17.3 % (11.5-14.5)
[2017-02-16 07:29] LABS: ALB/GLOB RATIO 1.1 (1.1-1.8); ALKALINE PHOSPHATASE 96 U/L (38-126); ALT/SGPT 49 U/L (7-56); AST/SGOT 60 U/L (17-59); BILIRUBIN,TOTAL 0.5 mg/dL (0.2-1.3); BLOOD UREA NITROGEN 7 mg/dL (7-21); CALCIUM 8.8 mg/dL (8.4-10.5); CARBON DIOXIDE 26 mmol/L (21-33); CHLORIDE 105 mmol/L (98-107); GFR AFRICAN-AMERICAN > 60; GLUCOSE,RANDOM 127 mg/dL (70-110); POTASSIUM 3.7 mmol/L (3.6-5.0); SODIUM 140 mmol/L (132-148); TOTAL PROTEIN 5.7 g/dL (5.8-8.3)
[2017-02-16] MEDS: Insulin Reg-LOW-Coverage SC SCH ×4 (08:24→22:19)
--- NOTE | 2017-02-16 09:56 | CP.PCM.PN ---
Subjective - Date & Time of Evaluation Date of Evaluation: 02/16/17 Time of Evaluation: 09:54 - Subjective Subjective: Pt awake, alert. Adequte pain control. Tmax 101.4 R knee: dressing intact wound vac with good seal NVI distally Hg 9.4 POD#[address] Jenkins. Will hold Lovenox for now. Mechanical dvt prophylaxis. cont vac cont knee immobilizer. No ROM at this time WBAT in immobilizer dressing change Saturday Objective - Vital Signs/Intake and Output Vital Signs (last 24 hours): Temp Pulse Resp BP Pulse Ox 101.4 F H 89 18 99/54 L 95 02/16/17 09:29 02/16/17 09:29 02/16/17 09:29 02/16/17 09:29 02/16/17 09:29 Intake and Output: 02/16/17 02/16/17 06:59 18:59 Intake Total 120 Output Total 0 Balance 120 - Medications Medications: Current Medications Acetaminophen (Tylenol 325mg Tab) 650 mg PO Q6H PRN PRN Reason: Temperature Cefazolin Sodium (Ancef 1gm In Ns) 1 gm in 100 mls @ 100 mls/hr IVPB Q8 SHMUEL PRN Reason: Protocol Last Admin: 02/16/17 05:52 Dose: 100 mls/hr Insulin Human Regular (Humulin R Low) 0 units SC ACHS SHMUEL PRN Reason: Protocol Last Admin: 02/16/17 08:24 Dose: Not Given Morphine Sulfate (Morphine) 2 mg IVP Q3 PRN PRN Reason: Pain, moderate (4-7) Last Admin: 02/16/17 06:48 Dose: 2 mg Ondansetron HCl (Zofran Inj) 4 mg IVP Q8 PRN PRN Reason: Nausea/Vomiting - Labs Labs: 02/16/17 06:30 02/16/17 06:30 PT 12.6 SECONDS (9.4-12.5) H 02/15/17 06:20 INR 1.14 (0.93-1.08) H 02/15/17 06:20 APTT 26.9 Seconds (25.1-36.5) 02/15/17 06:20
[2017-02-16 18:15] LABS: BASO # 0.02 K/mm3 (0.0-2.0); BASO % 0.3 % (0.0-3.0); EOS # 0.1 (0.0-0.7); EOS % 0.9 % (1.5-5.0); GRAN # 2.5 (1.4-6.5); LYMPH # 3.2 (1.2-3.4); LYMPH % 48.3 % (22.0-35.0); MEAN CELL VOLUME 80.6 fl (80.0-105.0); MEAN CORPUSCULAR HEMOGLOBIN 25.3 pg (25.0-35.0); MEAN CORPUSCULAR HGB CONC 31.3 g/dl (31.0-37.0); MEAN PLATELET VOLUME 9.9 fl (7.0-11.0); MONO # 0.8 (0.1-0.6); MONO % 12.5 % (1.0-6.0); RED CELL DISTRIBUTION WIDTH 17.4 % (11.5-14.5); WHITE BLOOD COUNT 6.6 10^3/ul (4.5-11.0)
--- NOTE | 2017-02-16 19:37 | PN ---
DATE: 02/16/[address] [facility]'s hospital visit on the medical floor. For Dr. Jenkins. SUBJECTIVE: The patient is a 71-year-old male now status post procedure yesterday with Dr. Fritz, Orthopedics for a right knee hematoma with the patient now resting comfortably. Denying any pain; however, he is at bedrest with the right knee dressing intact with the wound VAC noted. He does have a knee immobilizer with the patient to be at bedrest as per Dr. Fritz. We had monitor his hemoglobin, it is stable. We will type and cross the 2 units, keep them on hold as indicated. OBJECTIVE/PHYSICAL EXAMINATION: VITAL SIGNS: Temperature 101.4 with a repeat of 98.2, pulse 89, respirations 18, blood pressure 117/66, pulse ox 98%. HEENT: Unremarkable. NECK: Supple. HEART: Regular rate, occasional ectopic beats. LUNGS: Clear. ABDOMEN: Obese, soft, nontender. EXTREMITIES: No edema. The patient's right lower extremity dressed with wound VAC of the knee. NEUROLOGIC: Awake, alert and oriented. SKIN: Otherwise warm, dry, and clear. LABORATORY DATA: The patient's labs were done. White blood cell count of 6.0, hemoglobin of 9.4, hematocrit of 29.9, and platelet count of 232,000 with a chem metabolic panel within normal limit except for nonfasting glucose of 126, AST of 60. His INR yesterday, it was 1.14. ASSESSMENT: For this patient is postoperative day 1 for a right knee hematoma, status post incision and drainage. The patient's history of stage IV chronic lymphocytic leukemia, history of prostate cancer, status post radiation, severe degenerative joint disease of the knees, history of diabetes, atherosclerotic cardiovascular disease, gastroesophageal reflux disease, hyperlipidemia. PLAN: For this patient after conversation with Dr. Jenkins is to continue plan as per Dr. Fritz with Lovenox and Eliquis on hold for now with the patient to continue with alternative to compression stockings. We will also restart his other medications to include Flomax along with methenamine hippurate with famotidine, multivitamin with iron. We will continue to hold atorvastatin, Celebrex, Imbruvica along with Janumet, Toviaz, and cyproheptadine on hold. Plan will be to monitor clinically and with labs. We will type and cross the 2 units of packed red blood cells on hold with prognosis for this patient guarded. He is at bedrest until cleared by Dr. Fritz for physiotherapy as indicated. Jean Paul Ramos MD
[2017-02-16] MEDS: Morphine 4 mg/ml ISec IVP PRN (21:08)
[2017-02-17] MEDS: ceFAZolin 1 gm in NS 1 GM/100 ML BAG IVPB SCH ×3 (05:41→21:52)
[2017-02-17] MEDS: Morphine 4 mg/ml ISec IVP PRN ×2 (05:42→13:20)
[2017-02-17 07:50] LABS: BASO # 0.02 K/mm3 (0.0-2.0); BASO % 0.3 % (0.0-3.0); EOS # 0.1 (0.0-0.7); EOS % 1.5 % (1.5-5.0); GRAN # 2.34 (1.4-6.5); GRAN % 40.2 % (50.0-68.0); HEMATOCRIT 28.1 % (42.0-52.0); LYMPH # 2.6 (1.2-3.4); LYMPH % 44.6 % (22.0-35.0); MEAN CELL VOLUME 80.5 fl (80.0-105.0); MEAN CORPUSCULAR HEMOGLOBIN 24.6 pg (25.0-35.0); MEAN CORPUSCULAR HGB CONC 30.6 g/dl (31.0-37.0); MEAN PLATELET VOLUME 9.9 fl (7.0-11.0); MONO # 0.8 (0.1-0.6); MONO % 13.4 % (1.0-6.0); RED CELL DISTRIBUTION WIDTH 17.5 % (11.5-14.5); WHITE BLOOD COUNT 5.8 10^3/ul (4.5-11.0)
[2017-02-17] MEDS: Insulin Reg-LOW-Coverage SC SCH ×4 (08:12→21:53)
[2017-02-17 08:21] LABS: ALB/GLOB RATIO 1.1 (1.1-1.8); ALKALINE PHOSPHATASE 82 U/L (38-126); ALT/SGPT 47 U/L (7-56); AST/SGOT 42 U/L (17-59); BILIRUBIN,TOTAL 0.4 mg/dL (0.2-1.3); BLOOD UREA NITROGEN 7 mg/dL (7-21); CALCIUM 8.9 mg/dL (8.4-10.5); CARBON DIOXIDE 24 mmol/L (21-33); CHLORIDE 105 mmol/L (98-107); GFR AFRICAN-AMERICAN > 60; GLUCOSE,RANDOM 136 mg/dL (70-110); POTASSIUM 3.5 mmol/L (3.6-5.0); SODIUM 140 mmol/L (132-148); TOTAL PROTEIN 5.3 g/dL (5.8-8.3)
[2017-02-17] MEDS: Multivitamin With Minerals Tab PO SCH (09:11)
[2017-02-17] MEDS ORDERED: Lidocaine/Prilocaine 2.5%-2.5% Cream(30 gm) TOP ONE (10:11)
[2017-02-17] MEDS: METHENAMINE HIPPURATE 1 GM PO SCH (10:24)
[2017-02-17] MEDS ORDERED: Potassium Chloride 20 mEq ER Tab PO ONE (15:30)
--- NOTE | 2017-02-17 21:22 | PN ---
DATE: 02/17/2017 This is [facility]'s hospital visit on the medical floor. For Dr. Jenkins. SUBJECTIVE: The patient is a 71-year-old male, seen lying, awake in bed, status post procedure two days prior with Dr. Fritz, Orthopedics for a right knee hematoma evacuation with the patient having significant pain last night so that his morphine sulphate 2 mg IV q. 3 hours needed to be doubled to 4 mg q. 3 hours at present. The patient is reporting the pain medicines are now helping. With this, his hemoglobin dropped with anemic indices significant with transfusion recommended as per consultation with Dr. Jenkins. The patient is otherwise in no acute distress. He is still at bed rest with the Lovenox and Eliquis on hold as per Dr. Fritz's recommendation. His potassium is low, we will replenish his potassium and check his labs again in the morning. OBJECTIVE/PHYSICAL EXAMINATION: VITAL SIGNS: Temperature 97.8, pulse 68, respirations 18, blood pressure 115/64 with a pulse oximetry of 98%. HEENT: Unremarkable. NECK: Supple. HEART: Regular rate. LUNGS: Clear. ABDOMEN: Obese, soft, and nontender. EXTREMITIES: No edema with the right lower extremity dressed at the knee with the wound VAC as per Dr. Fritz. NEUROLOGIC: Awake, alert and oriented. SKIN: Warm, dry and clear. The patient does have a on the right status post trauma years ago. LABORATORY DATA: The patient's labs were done. White blood cell count of 5.8, hemoglobin 8.6, on admission was 10.7 dropped to 9.4 yesterday, and is 8.6 today, we will transfuse [address] Jenkins's recommendation and platelet count of 213,000. Chem metabolic panel showed a potassium of 3.5, nonfasting glucose of 136, total protein 5.3, albumin of 2.8, otherwise normal chem metabolic panel. ASSESSMENT: For this patient is that of postop day 2 for right knee hematoma with evacuation, history of stage 4 chronic lymphocytic leukemia, history of prostate cancer status post radiation, history of degenerative joint disease, diabetes mellitus, atherosclerotic cardiovascular disease, gastroesophageal reflux disease, hyperlipidemia with traumatic injury to the right hand history and also symptomatic anemia. PLAN: For this patient after conversation with Dr. Fritz with present plan. As per Dr. Fritz, we will hold Lovenox and Eliquis for now with the compression stockings to continue. With this, we will transfuse 2 units of packed red blood cells slowly of 3 hours each unit after few medication with Tylenol, Benadryl, , Lasix after the first unit. With this, the patient will continue his present medical regimen with Dr. Fritz to continue followup with bed rest until he is cleared by his surgeon. We will monitor clinically and with labs. This is a complex patient with multiple comorbidities with a comprehensive medically appropriate necessary visit carried out at the bedside in excess of 25 minutes this time. Jean Paul Ramos MD
[2017-02-18] MEDS: Morphine 4 mg/ml ISec IVP PRN ×2 (02:22→22:51)
[2017-02-18] MEDS: ceFAZolin 1 gm in NS 1 GM/100 ML BAG IVPB SCH ×3 (05:29→21:05)
[2017-02-18 06:56] LABS: BASO # 0.01 K/mm3 (0.0-2.0); BASO % 0.2 % (0.0-3.0); EOS % 0.2 % (1.5-5.0); GRAN # 2.53 (1.4-6.5); HEMATOCRIT 31.5 % (42.0-52.0); LYMPH # 3.4 (1.2-3.4); LYMPH % 51.2 % (22.0-35.0); MEAN CELL VOLUME 81.2 fl (80.0-105.0); MEAN CORPUSCULAR HEMOGLOBIN 25.8 pg (25.0-35.0); MEAN CORPUSCULAR HGB CONC 31.7 g/dl (31.0-37.0); MEAN PLATELET VOLUME 10.3 fl (7.0-11.0); MONO # 0.7 (0.1-0.6); MONO % 10.4 % (1.0-6.0); WHITE BLOOD COUNT 6.6 10^3/ul (4.5-11.0)
[2017-02-18 07:27] LABS: ALB/GLOB RATIO 1.1 (1.1-1.8); ALKALINE PHOSPHATASE 92 U/L (38-126); ALT/SGPT 53 U/L (7-56); AST/SGOT 67 U/L (17-59); BILIRUBIN,TOTAL 0.4 mg/dL (0.2-1.3); BLOOD UREA NITROGEN 10 mg/dL (7-21); CALCIUM 9.4 mg/dL (8.4-10.5); CARBON DIOXIDE 26 mmol/L (21-33); CHLORIDE 106 mmol/L (98-107); GFR AFRICAN-AMERICAN > 60; GLUCOSE,RANDOM 103 mg/dL (70-110); POTASSIUM 3.5 mmol/L (3.6-5.0); SODIUM 142 mmol/L (132-148); TOTAL PROTEIN 5.6 g/dL (5.8-8.3)
[2017-02-18] MEDS: Insulin Reg-LOW-Coverage SC SCH ×4 (08:01→21:06)
[2017-02-18] MEDS: Multivitamin With Minerals Tab PO SCH (09:45)
[2017-02-18] MEDS ORDERED: Potassium Chloride 20 mEq ER Tab PO ONE (10:54)
[2017-02-18] MEDS: METHENAMINE HIPPURATE 1 GM PO SCH (11:36)
--- NOTE | 2017-02-18 14:05 | PN ---
DATE: 02/18/2017 REASON FOR CONSULTATION AND FOLLOWUP: postop followup, status post hematoma of right knee, status post evacuation of hematoma. SUBJECTIVE: The patient feels better. Denies any chest pain, shortness of breath or any palpitation. OBJECTIVE: GENERAL: Not in apparent distress. VITAL SIGNS: As follows, temperature afebrile, heart rate 60, and blood pressure 119/71. HEENT: PERRLA. Extraocular muscles intact. NECK: Supple. No carotid bruits or thyromegaly. CHEST: Clear to auscultation. HEART: S1 and S2 regular. ABDOMEN: Soft. EXTREMITIES: Clubbing and cyanosis negative. LABORATORY DATA: Blood workup as follows: WBC 6.3, hemoglobin 10.0, hematocrit 31.5, and platelet count 230. Chemistry shows sodium 142, potassium 3.5, chloride 106, carbon dioxide 26, anion gap of 13, BUN 10, and creatinine 0.6. IMPRESSION: Right knee hematoma, status post evacuation of the hematoma and vacuum section, vacuum placed, wound vacuum-assisted closure, history of knee joint replacement 10 days ago, history of chronic lymphocytic leukemia, history of gamma globulin injection every month at Dr. Jenkins's office, history of arthroplasty on 02/05/2017, 10 days ago, history of Port-A-Cath, history of cardiac catheterization on 08/31/2011, an abnormal stress test, mild nonobstructive coronary artery disease, history of most recent stress test on 09/24/2016 that shows normal myocardial perfusion study ejection fraction of 59% in comparison to last study, no significant change, hypertension, hyperlipidemia, chronic lymphocytic leukemia, prostate cancer, gastroesophageal reflux, and type 2 diabetes. RECOMMENDATIONS: CVS status is stable. Continue Flomax. Continue wound care. Continue supplement potassium as needed. We will follow with you. Thank you Dr. Jenkins for providing us the opportunity in taking care of the patient, Austin Bhardwaj. We will supplement potassium and repeat the labs in the morning. The patient has protein-calorie malnutrition, which was not present on admission, so we will add on supplement Ensure. Marcos Farnsworth MD [facility] # [id number]
--- NOTE | 2017-02-18 15:59 | PN ---
DATE: 02/18/2017 This is [facility]'s hospital visit on the medical floor. For Dr. Jenkins. SUBJECTIVE: The patient is a 71-year-old male postoperative day 3 with procedure by orthopedic surgeon for right knee hematoma with the patient being transfused 2 units of packed red blood cells narcotic analgesics increased for severe knee pain. After it was okay was given as per the nurses with telephone conversation with surgeon. The patient is now reporting that his pain is better. He feels stronger after the transfusion. He is otherwise in no acute distress. His Lovenox and Eliquis are on hold as per surgeon's recommendation with potassium getting low this morning, we will replenish this. The patient is noted suffer from stage IV CLL and history of prostate cancer. OBJECTIVE/PHYSICAL EXAMINATION: VITAL SIGNS: Include temperature 98.2, pulse 68, respirations 20, blood pressure 119/71, and pulse oximetry 98%. The patient had oxygen ordered, it was never implemented at the bedside. We will hold off on oxygen now, as his hemoglobin has improved after the transfusion. HEENT: Unremarkable. NECK: Supple. HEART: Regular rate. LUNGS: Clear. ABDOMEN: Soft and nontender. EXTREMITIES: No edema with a right lower extremity dressed with wound VAC. NEUROLOGIC: Toes wiggle freely. SKIN: Warm and dry. LABORATORY DATA: The patient's labs were done. While blood cell count 6.6, hemoglobin 10.0, hematocrit 31.5, and platelet count of 230,000, yesterday his hemoglobin is 8.6 and today he is 10.0 after transfusion of 2 units of packed cells. The patient's labs include a potassium of 3.5 with potassium replenished by Dr. Farnsworth. AST of 67. Nonfasting glucose of 468 yesterday, now down to 151. ASSESSMENT: Postoperative day 3 for hematoma, surgical complication postoperative for knee procedure, history of stage IV chronic lymphocytic leukemia, history of prostate cancer, degenerative joint disease, diabetes, atherosclerotic cardiovascular disease, gastroesophageal reflux disease, hyperlipidemia, traumatic injury to the right hand, and symptomatic anemia status post transfusion. PLAN: Plan as per surgical recommendations with the patient not mobile with a spirometer at the bedside. I have encouraged to use it. We will monitor clinically with labs. Prognosis for this patient is guarded. Jean Paul MD [facility] # [phone]
[2017-02-19] MEDS: ceFAZolin 1 gm in NS 1 GM/100 ML BAG IVPB SCH ×3 (05:09→21:59)
[2017-02-19 07:25] LABS: BASO # 0.01 K/mm3 (0.0-2.0); BASO % 0.2 % (0.0-3.0); EOS % 0.5 % (1.5-5.0); GRAN # 2.32 (1.4-6.5); GRAN % 38.5 % (50.0-68.0); HEMATOCRIT 33.7 % (42.0-52.0); LYMPH # 3.2 (1.2-3.4); LYMPH % 52.7 % (22.0-35.0); MEAN CELL VOLUME 81.2 fl (80.0-105.0); MEAN CORPUSCULAR HEMOGLOBIN 25.8 pg (25.0-35.0); MEAN CORPUSCULAR HGB CONC 31.8 g/dl (31.0-37.0); MEAN PLATELET VOLUME 10.3 fl (7.0-11.0); MONO # 0.5 (0.1-0.6); MONO % 8.1 % (1.0-6.0); RED CELL DISTRIBUTION WIDTH 17.2 % (11.5-14.5)
[2017-02-19 07:43] LABS: ALB/GLOB RATIO 1.2 (1.1-1.8); ALKALINE PHOSPHATASE 95 U/L (38-126); ALT/SGPT 64 U/L (7-56); AST/SGOT 70 U/L (17-59); BILIRUBIN,TOTAL 0.5 mg/dL (0.2-1.3); BLOOD UREA NITROGEN 10 mg/dL (7-21); CALCIUM 9.2 mg/dL (8.4-10.5); CARBON DIOXIDE 26 mmol/L (21-33); CHLORIDE 108 mmol/L (98-107); GFR AFRICAN-AMERICAN > 60; GLUCOSE,RANDOM 102 mg/dL (70-110); MAGNESIUM 1.5 mg/dL (1.7-2.2); PHOSPHOROUS 3.5 mg/dL (2.5-4.5); POTASSIUM 3.9 mmol/L (3.6-5.0); SODIUM 140 mmol/L (132-148); TOTAL PROTEIN 5.6 g/dL (5.8-8.3)
[2017-02-19 08:14] VITALS: RESP 20; O2SAT 98
[2017-02-19] MEDS: Multivitamin With Minerals Tab PO SCH (08:27)
[2017-02-19] MEDS: Insulin Reg-LOW-Coverage SC SCH ×4 (08:27→21:27)
[2017-02-19] MEDS ORDERED: Magnesium Sulfate 2 GM in Sodium Chloride 0.9% 100 ML IVPB ONE (08:49)
[2017-02-19] MEDS ORDERED: Potassium Chloride 20 mEq ER Tab PO ONE (08:49)
[2017-02-19] MEDS: Magnesium Oxide 400 mg Tab UD PO SCH ×2 (09:18→17:17)
[2017-02-19] MEDS: METHENAMINE HIPPURATE 1 GM PO SCH (09:19)
--- NOTE | 2017-02-19 11:25 | CP.PCM.PN ---
Subjective - Date & Time of Evaluation Date of Evaluation: 02/19/17 Time of Evaluation: 11:23 - Subjective Subjective: Pt awake, alert. C/o R knee pain. Afebrile R knee: dressing changed incision clean + hematoma NVI distally R knee prepped and approx 45 cc of blood aspirated steriley ANABELLE dressing reapplied Cont antibiotics WBAT in knee immobilizer hold off on ROM Objective - Vital Signs/Intake and Output Vital Signs (last 24 hours): Temp Pulse Resp BP Pulse Ox 98.9 F 66 20 107/73 98 02/19/17 08:13 02/19/17 08:13 02/19/17 08:13 02/19/17 08:13 02/19/17 08:13 Intake and Output: 02/19/17 02/19/17 06:59 18:59 Intake Total 1200 0 Output Total 200 425 Balance 1000 -425 - Medications Medications: Current Medications Acetaminophen (Tylenol 325mg Tab) 650 mg PO Q6H PRN PRN Reason: Temperature Last Admin: 02/16/17 11:06 Dose: 650 mg Famotidine (Pepcid) 20 mg PO DAILY [facility] Last Admin: 02/19/17 09:19 Dose: 20 mg Home Med (Home Med) 1 unit PO DAILY [facility] Last Admin: 02/19/17 09:19 Dose: Not Given Cefazolin Sodium (Ancef 1gm In Ns) 1 gm in 100 mls @ 100 mls/hr IVPB Q8 SHMUEL PRN Reason: Protocol Last Admin: 02/19/17 05:09 Dose: 100 mls/hr Insulin Human Regular (Humulin R Low) 0 units SC ACHS SHMUEL PRN Reason: Protocol Last Admin: 02/19/17 08:27 Dose: Not Given Magnesium Oxide (Mag-Ox) 400 mg PO BID [facility] Stop: 02/20/17 23:59 Last Admin: 02/19/17 09:18 Dose: 400 mg Morphine Sulfate (Morphine) 4 mg IVP Q3H PRN PRN Reason: Pain, moderate (4-7) Last Admin: 02/18/17 22:51 Dose: 4 mg Multivitamins/Minerals (Therapeutic-M Tab) 1 tab PO 0800 [facility] Last Admin: 02/19/17 08:27 Dose: 1 tab Ondansetron HCl (Zofran Inj) 4 mg IVP Q8 PRN PRN Reason: Nausea/Vomiting Tamsulosin HCl (Flomax) 0.4 mg PO DAILY SHMUEL Last Admin: 02/19/17 09:18 Dose: 0.4 mg - Labs Labs: 02/19/17 07:00 02/19/17 07:00 PT 12.6 SECONDS (9.4-12.5) H 02/15/17 06:20 INR 1.14 (0.93-1.08) H 02/15/17 06:20 APTT 26.9 Seconds (25.1-36.5) 02/15/17 06:20
--- NOTE | 2017-02-19 11:44 | PN ---
DATE: 02/19/2017 REASON FOR CONSULTATION AND FOLLOWUP: Postop followup, status post hematoma of the right knee, status post evacuation of hematoma, and nonobstructive coronary artery disease. SUBJECTIVE: The patient denies any chest pain, shortness of breath or any palpitation. He is lying flat on the bed. He feels better. OBJECTIVE: GENERAL: Not in apparent distress, lying flat on the bed. VITAL SIGNS: Temperature is afebrile, heart rate is 65, and blood pressure is 107/73. HEENT: PERRLA. Extraocular muscles are intact. NECK: Supple. No carotid bruits or thyromegaly. CHEST: Clear to auscultation. HEART: S1 and S2 regular. ABDOMEN: Soft. EXTREMITIES: Clubbing and cyanosis negative. LABORATORY DATA: Blood workup as follows: WBC of 6, hemoglobin of 10.7, hematocrit of 33.7, and platelet count of 231. Chemistry shows sodium of 140, potassium of 3.9, chloride of 108, carbon dioxide of 26, anion gap of 10, BUN of 10, and creatinine of 0.6. Total protein of 5.6, albumin of 3, and albumin-globulin ratio of 1.2. Magnesium is 1.5. IMPRESSION: Status post evacuation of hematoma of right knee, status post arthrocentesis, status post knee joint replacement recently, history of chronic lymphocytic leukemia, history of gamma globulin injection every month by Dr. Jenkins, history of arthroplasty on 02/05/2017, 10 days ago, history of Port-A-Cath, history of cardiac catheterization on 08/31/2011, because abnormal stress test found to be nonobstructive coronary artery disease. Most recent stress test on 09/24/2016 shows normal myocardial perfusion study and no reversible ischemia. History of gastroesophageal reflux disease, history of chronic lymphocytic leukemia, history of prostate cancer, and diabetes. RECOMMENDATIONS: CVS status is stable. Continue Flomax. Continue wound care. Supplement aggressively potassium and magnesium. The patient has hypomagnesemia and hypokalemia. Continue adequate analgesia. Rehab CVS status is stable. Clear from cardiac point of view. When cleared from Orthopedic to be discharged. We will repeat the lab in the morning. Marcos Farnsworth MD
[2017-02-19] MEDS: Morphine 4 mg/ml ISec IVP PRN (17:21)
[2017-02-20] MEDS: ceFAZolin 1 gm in NS 1 GM/100 ML BAG IVPB SCH ×2 (05:07→13:43)
[2017-02-20] MEDS: Insulin Reg-LOW-Coverage SC SCH ×2 (07:31→11:44)
[2017-02-20 07:42] LABS: BASO # 0.02 K/mm3 (0.0-2.0); BASO % 0.4 % (0.0-3.0); EOS % 0.7 % (1.5-5.0); GRAN # 1.47 (1.4-6.5); GRAN % 32.8 % (50.0-68.0); LYMPH # 2.5 (1.2-3.4); LYMPH % 55.9 % (22.0-35.0); MEAN CELL VOLUME 81.5 fl (80.0-105.0); MEAN CORPUSCULAR HEMOGLOBIN 25.2 pg (25.0-35.0); MEAN CORPUSCULAR HGB CONC 30.9 g/dl (31.0-37.0); MONO # 0.5 (0.1-0.6); MONO % 10.2 % (1.0-6.0); RED CELL DISTRIBUTION WIDTH 17.4 % (11.5-14.5); WHITE BLOOD COUNT 4.5 10^3/ul (4.5-11.0)
[2017-02-20 07:54] VITALS: BP 111/73; PULSE 72; TEMP 97.9
[2017-02-20 08:24] LABS: BLOOD UREA NITROGEN 7 mg/dL (7-21); CALCIUM 8.9 mg/dL (8.4-10.5); CARBON DIOXIDE 26 mmol/L (21-33); CHLORIDE 107 mmol/L (98-107); GFR AFRICAN-AMERICAN > 60; GLUCOSE,RANDOM 168 mg/dL (70-110); MAGNESIUM 1.7 mg/dL (1.7-2.2); PHOSPHOROUS 3.2 mg/dL (2.5-4.5); POTASSIUM 3.7 mmol/L (3.6-5.0); SODIUM 142 mmol/L (132-148)
[2017-02-20] MEDS ORDERED: Potassium Chloride 20 mEq ER Tab PO ONE (09:26)
[2017-02-20] MEDS: Multivitamin With Minerals Tab PO SCH (09:30)
[2017-02-20] MEDS: Magnesium Oxide 400 mg Tab UD PO SCH (09:31)
[2017-02-20] MEDS: METHENAMINE HIPPURATE 1 GM PO SCH (09:32)
--- NOTE | 2017-02-20 11:08 | PN ---
DATE: REASON FOR CONSULTATION AND FOLLOWUP: Postop followup with status post hematoma of the right knee, status post drainage of hematoma twice yesterday as well, and nonobstructive coronary artery disease. SUBJECTIVE: The patient denies any chest pain, shortness of breath or any palpitation. Lying flat on the bed. Feels better. OBJECTIVE: GENERAL: Not in apparent distress. Awaiting for the breakfast. VITAL SIGNS: As follows, temperature afebrile, heart rate 72, and blood pressure 111/73. HEENT: PERRLA. Extraocular muscles intact. NECK: Supple. No carotid bruits or thyromegaly. CHEST: Clear to auscultation. HEART: S1 and S2 regular. ABDOMEN: Soft. EXTREMITIES: Clubbing and cyanosis negative. LABORATORY DATA: Blood workup as follows: WBC 4.5, hemoglobin 10.2, hematocrit 33.0, and platelet count 231. Chemistry shows sodium 143, potassium 3.7, chloride 107, carbon dioxide 26, anion gap of 12, BUN 7, and creatinine 0.6. IMPRESSION: Hematoma of the right knee, status post drainage twice yesterday, 45 mL of blood aspirated again, history of knee joint replacement, arthroplasty on 02/05/2017, 2 weeks ago, history of Port-A-Cath, history of cardiac catheterization on 08/31/2011, nonobstructive coronary artery disease, history of most recent stress test on 09/24/2016 shows normal myocardial perfusion study and no reversible ischemia, history of gastroesophageal reflux disease, history of chronic lymphocytic leukemia, history of prostate cancer on gamma globulin, and history of diabetes. RECOMMENDATIONS: Continue Flomax. CVS status is stable. Continue supplement of electrolytes. Repeat the blood workup in the morning. We will follow with you. Supplement of potassium. Thank you Dr. Ramos, for providing us the opportunity in taking care of the patient, Austin Bhardwaj. We will follow with you. Marcos Farnsworth MD
[2017-02-20] MEDS: Morphine 4 mg/ml ISec IVP PRN (14:58)
--- NOTE | 2017-02-21 02:12 | DS ---
This is [facility] [place] hospital visit on the medical floor. For Dr. Jenkins. SUBJECTIVE: The patient is a 71-year-old male, seen lying awake in bed with his knee immobilizer on, reporting that his pain medicines helped his pain. He was seen by his surgeon yesterday with recommendations to continue the present regimen with 45 mL of blood aspirated, as per his surgeon's note. With this, the patient is to be transferred later today to TCU-transistional care for recuperation and reconditioning. OBJECTIVE: PHYSICAL EXAMINATION: VITAL SIGNS: Temperature 97.9, pulse 72, respirations 20, blood pressure 111/73, and pulse ox 98%. HEENT: Unremarkable. NECK: Supple. HEART: Regular rate. LUNGS: Clear. ABDOMEN: Soft and nontender. EXTREMITIES: Scar tissue to the right forearm hand, post trauma history; otherwise no edema. SKIN: Warm and dry. NEUROLOGIC: The right knee with knee immobilizer, advised not to bend his knee as per his surgeon. LABORATORY DATA: The patient's labs were done. White blood cell count of 4.5, hemoglobin 10.2, status post transfusion of two units of packed cells on 02/17/2017, hematocrit 33.0, platelet count of 231,000. Chem metabolic panel within normal range except for a nonfasting glucose of 151. The patient now reports that he had a blood sugar of 468 on candy. ASSESSMENT: For this patient is that of postop right knee hematoma, history of stage IV chronic lymphocytic leukemia, history of prostate cancer, degenerative joint disease, diabetes mellitus, atherosclerotic cardiovascular disease, gastroesophageal reflux disease, hyperlipidemia, traumatic injury to right extended forearm; symptomatically with post-transfusion. PLAN: After conservation with Dr. Jenkins, he is to continue his present medical regimen. His meds at this time include Ancef, Flomax, insulin, magnesium oxide, morphine, sulfate, Pepcid, multivitamin, Tylenol, and Zofran. The plan for this patient is to continue present medical regimen. With this, the patient would be transferred to TCU later this afternoon. He will continue his present medical regimen with antibiotics to continue as per Dr. Fritz, and ambulation only as per Dr. Fritz, his surgeon. Jean Paul MD [facility]
== END 2017-02-20 16:20 | DRG 908 ==
LOC: ED 17:32 → ERH 21:29 → 3RNO 22:16
PROVIDERS: ADMIT Family Medicine; ATTEND Family Medicine
PROC: 3E1U38Z Irrigation of Joints using Irrigating Substance, Percutaneous Approach (ICD-10-PCS; 2017-02-15)
PROC: 0SCC0ZZ Extirpation of Matter from Right Knee Joint, Open Approach (ICD-10-PCS; principal; 2017-02-15 15:45)
PROC: 30233N1 Transfusion of Nonautologous Red Blood Cells into Peripheral Vein, Percutaneous Approach (ICD-10-PCS; 2017-02-17)
PROC: 0Y9F3ZZ Drainage of Right Knee Region, Percutaneous Approach (ICD-10-PCS; 2017-02-19)
DX: M96.841 Postprocedural hematoma of a musculoskeletal structure following other procedure (principal); C91.10 Chronic lymphocytic leukemia of B-cell type not having achieved remission; I11.0 Hypertensive heart disease with heart failure; I08.3 Combined rheumatic disorders of mitral, aortic and tricuspid valves; E83.42 Hypomagnesemia; M25.00 Hemarthrosis, unspecified joint; D64.9 Anemia, unspecified; E11.9 Type 2 diabetes mellitus without complications; E78.5 Hyperlipidemia, unspecified; I25.10 Atherosclerotic heart disease of native coronary artery without angina pectoris; M17.0 Bilateral primary osteoarthritis of knee; K21.9 Gastro-esophageal reflux disease without esophagitis; M70.41 Prepatellar bursitis, right knee; S80.01XA Contusion of right knee, initial encounter; Z85.46 Personal history of malignant neoplasm of prostate; Z87.891 Personal history of nicotine dependence; Z92.3 Personal history of irradiation; Z96.651 Presence of right artificial knee joint; F10.11 Alcohol abuse, in remission; E87.6 Hypokalemia

== ENCOUNTER 2017-02-20 16:22 | Inpatient (IN) | payer BC, OTHER ==
[2017-02-20 17:13] VITALS: BMI 25.7
[2017-02-20] MEDS: Magnesium Oxide 400 mg Tab UD PO SCH (18:31)
[2017-02-20] MEDS ORDERED: Pneumococcal 23-Valent Vaccine IM ONE (20:09)
[2017-02-20] MEDS ORDERED: Influenza Vaccine 60 mcg/0.5 mL SYR (4YR UP) IM ONE (20:09)
[2017-02-20] MEDS: Morphine 4 mg/ml ISec IVP PRN (21:22)
[2017-02-20] MEDS: ceFAZolin 1 gm in NS 1 GM/100 ML BAG IVPB SCH (21:22)
[2017-02-20] MEDS: Insulin Reg-LOW-Coverage SC SCH (22:13)
[2017-02-21] MEDS: Morphine 4 mg/ml ISec IVP PRN ×4 (00:56→22:34)
[2017-02-21] MEDS: ceFAZolin 1 gm in NS 1 GM/100 ML BAG IVPB SCH ×3 (05:16→21:29)
[2017-02-21 06:20] LABS: BASO # 0.02 K/mm3 (0.0-2.0); BASO % 0.4 % (0.0-3.0); EOS % 0.8 % (1.5-5.0); GRAN # 1.39 (1.4-6.5); GRAN % 29.4 % (50.0-68.0); HEMOGLOBIN 9.4 g/dL (14.0-18.0); LYMPH # 2.7 (1.2-3.4); LYMPH % 57.2 % (22.0-35.0); MEAN CELL VOLUME 82.8 fl (80.0-105.0); MEAN CORPUSCULAR HEMOGLOBIN 25.3 pg (25.0-35.0); MEAN CORPUSCULAR HGB CONC 30.5 g/dl (31.0-37.0); MEAN PLATELET VOLUME 9.9 fl (7.0-11.0); MONO # 0.6 (0.1-0.6); MONO % 12.2 % (1.0-6.0); RBC 3.72 10^6/uL (3.5-6.1); RED CELL DISTRIBUTION WIDTH 17.6 % (11.5-14.5); WHITE BLOOD COUNT 4.7 10^3/ul (4.5-11.0)
[2017-02-21] MEDS: Insulin Reg-LOW-Coverage SC SCH ×4 (06:46→21:29)
[2017-02-21] MEDS: Multivitamin Therapeutic Tab PO SCH (07:46)
--- NOTE | 2017-02-21 08:52 | CP.PCM.PN ---
Subjective - Date & Time of Evaluation Date of Evaluation: 02/21/17 Time of Evaluation: 08:49 - Subjective Subjective: Pt awake,alert. Adequate pain control. Pt ambulated with knee immobilizer. VSS R knee: + effusion incision clean and dry ANABELLE d/c'd R knee aspirated under sterile conditions approx 40 cc of blood removed new dressing placed cont immbolizer ice packs cont Ancef Objective - Vital Signs/Intake and Output Vital Signs (last 24 hours): Temp Pulse Resp BP Pulse Ox 98.5 F 77 16 121/68 02/20/17 19:53 02/20/17 19:53 02/20/17 19:53 02/20/17 19:53 - Medications Medications: Current Medications Acetaminophen (Tylenol 325mg Tab) 650 mg PO Q6H PRN; Protocol PRN Reason: Temperature Famotidine (Pepcid) 20 mg PO DAILY [facility] PRN Reason: Protocol Cefazolin Sodium (Ancef 1gm In Ns) 1 gm in 100 mls @ 100 mls/hr IVPB Q8 [facility] Last Admin: 02/21/17 05:16 Dose: 100 mls/hr Insulin Human Regular (Humulin R Low) 0 units SC ACHS [facility] PRN Reason: Protocol Last Admin: 02/21/17 06:46 Dose: 1 units Magnesium Oxide (Mag-Ox) 400 mg PO BID [facility] PRN Reason: Protocol Last Admin: 02/20/17 18:31 Dose: 400 mg Morphine Sulfate (Morphine) 4 mg IVP Q3H PRN; Protocol PRN Reason: Pain, moderate (4-7) Last Admin: 02/21/17 00:56 Dose: 4 mg Multivitamins (Thera Tab) 1 tab PO 0800 [facility] PRN Reason: Protocol Last Admin: 02/21/17 07:46 Dose: 1 tab Ondansetron HCl (Zofran Inj) 4 mg IVP Q8H PRN; Protocol PRN Reason: Nausea/Vomiting Tamsulosin HCl (Flomax) 0.4 mg PO 1830 [facility] PRN Reason: Protocol Last Admin: 02/20/17 18:30 Dose: 0.4 mg - Labs Labs: 02/21/17 05:30
[2017-02-21 08:59] LABS: ALB/GLOB RATIO 0.9 (1.1-1.8); ALT/SGPT 54 U/L (7-56); AST/SGOT 50 U/L (17-59); BLOOD UREA NITROGEN 5 mg/dL (7-21); CALCIUM 6.7 mg/dL (8.4-10.5); GFR AFRICAN-AMERICAN > 60; GFR NON-AFRICAN AMERICAN > 60
[2017-02-21] MEDS: Magnesium Oxide 400 mg Tab UD PO SCH ×2 (10:52→17:39)
[2017-02-21] MEDS ORDERED: Potassium Chloride 20 mEq ER Tab PO ONE (12:42)
--- NOTE | 2017-02-21 20:41 | CON ---
DATE: 02/21/2017 The patient seen earlier to this morning in room 313. CHIEF COMPLAINT: Weakness from several days. HISTORY OF PRESENT ILLNESS: The patient is a 71-year-old male who was seen by Dr. Gilbert who states the right knee aspirated under sterile conditions and at 46 of blood removed since his consultation requested. The patient is on Ancef. Review of system reveals the patient has no fevers and no chills. No nausea, no vomiting. No chest pain and no abdominal pain or diarrhea or constipation. PAST MEDICAL HISTORY: Significant for stage IV chronic lymphocytic leukemia and diabetes mellitus, prostate cancer, hypertension. PAST SURGICAL HISTORY: Significant for right arm surgery, bilateral knee surgery. ALLERGIES: THE PATIENT HAS NO KNOWN ALLERGIES. The patient was recently in the hospital and the patient was having a right knee arthroplasty, removed for infection and undergone 6 weeks of antibiotics and now transferred to transitional care. REVIEW OF SYSTEMS: Noted. PHYSICAL EXAMINATION: GENERAL: The patient is in bed in no acute distress and nontoxic. He is answering questions appropriately. VITAL SIGNS: Temperature of 98, blood pressure is 120/60, respiratory rate of 16, heart rate of 77. HEENT: Unremarkable. NECK: Supple. LUNGS: Have decreased breath sounds. HEART: Normal S1, S2. ABDOMEN: Soft and nontender. LABORATORY EXAMINATION: Reveals a white count of 4.7, hemoglobin of 9, platelets of 197. Chemistries reveals a BUN of 5, creatinine of 0.4 and calcium is 6.7. Review of the synovial fluids at 108 WBCs and 75% of lymphocytes, 20% neutrophils that is from 02/05/2017. Urinalysis is noted. Chemistries reveal the patient's creatinine has been normal and C-reactive protein greater than 15, which last one was on 02/2016 and had a last sed rate was also on 03/07/2016, sed rate of 5. Microbiology reveals the patient, the knee cultures are no growth, MRSA is cultures are not detected. The blood cultures are not detected and no growth in the blood cultures. Review of orders reveals the patient to be on cefazolin 1 g IV. ASSESSMENT AND PLAN: A 71-year-old male with history of chronic lymphocytic leukemia stage IV, diabetes mellitus, prostate cancer, hypertension, coronary artery disease, gastroesophageal reflux disease, hyperlipidemia, postop knee hematoma, stage IV chronic lymphocytic leukemia, degenerative joint disease. Cultures negative. WBCs are not shown to be consistent with an infection and the right knee hematoma is surgery was done on 02/19/2017. Dr. Gilbert's incision and drainage of the knee wound is noted and we will discuss with Dr. Gilbert at this time we will continue the cefazolin and we will make further recommendations. We will also order a sed rate and a C-reactive protein and a procalcitonin and we will follow closely with you. Capo Esquivel MD
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
[2017-02-22] MEDS: Morphine 4 mg/ml ISec IVP PRN ×3 (02:00→17:26)
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
[2017-02-22] MEDS: ceFAZolin 1 gm in NS 1 GM/100 ML BAG IVPB SCH ×3 (05:22→21:54)
[2017-02-22] MEDS: Insulin Reg-LOW-Coverage SC SCH ×4 (06:42→21:54)
[2017-02-22 07:18] LABS: BASO # 0.02 K/mm3 (0.0-2.0); BASO % 0.5 % (0.0-3.0); EOS % 0.9 % (1.5-5.0); GRAN # 1.32 (1.4-6.5); HEMOGLOBIN 10.2 g/dL (14.0-18.0); LYMPH # 2.4 (1.2-3.4); LYMPH % 54.9 % (22.0-35.0); MEAN CELL VOLUME 82.6 fl (80.0-105.0); MEAN CORPUSCULAR HEMOGLOBIN 25.4 pg (25.0-35.0); MEAN CORPUSCULAR HGB CONC 30.7 g/dl (31.0-37.0); MEAN PLATELET VOLUME 10.4 fl (7.0-11.0); MONO # 0.6 (0.1-0.6); MONO % 13.7 % (1.0-6.0); RBC 4.02 10^6/uL (3.5-6.1); RED CELL DISTRIBUTION WIDTH 17.7 % (11.5-14.5); WHITE BLOOD COUNT 4.4 10^3/ul (4.5-11.0)
[2017-02-22 07:37] LABS: ALB/GLOB RATIO 1.1 (1.1-1.8); ALBUMIN 2.7 g/dL (3.0-4.8); ALT/SGPT 49 U/L (7-56); AST/SGOT 47 U/L (17-59); BLOOD UREA NITROGEN 8 mg/dL (7-21); CALCIUM 8.6 mg/dL (8.4-10.5); GFR AFRICAN-AMERICAN > 60; GFR NON-AFRICAN AMERICAN > 60; MAGNESIUM 1.6 mg/dL (1.7-2.2)
[2017-02-22] MEDS: Multivitamin Therapeutic Tab PO SCH (08:50)
[2017-02-22] MEDS: Magnesium Oxide 400 mg Tab UD PO SCH ×2 (09:33→17:29)
--- NOTE | 2017-02-22 12:18 | PN ---
DATE: 02/22/2017 SUBJECTIVE: The patient is in bed, in no acute distress, nontoxic. The patient was seen early this morning. PHYSICAL EXAMINATION: VITAL SIGNS: Temperature is 98, blood pressure is 120/70, respiratory rate of 16. HEENT: Unremarkable. NECK: Supple. LUNGS: Decreased breath sounds. HEART: Normal S1 and S2. ABDOMEN: Soft, nontender. LABORATORY DATA: Reveals the patient's white count of , hemoglobin of 10, platelets of 202, BUN of 8, and creatinine of 0.6. ASSESSMENT AND PLAN: A 71-year-old male with a history of chronic lymphocytic leukemia stage IV with diabetes mellitus and prostate cancer, hypertension, coronary artery disease, gastroesophageal reflux disease, hyperlipidemia, had a postoperative knee hematoma, and degenerative joint disease. Cultures are negative. WBC and synovial fluid not elevated. Dr. Gilbert's incision and drainage of the knee wound was reviewed. Currently on cefazolin, and we will make the patient at the sedimentation rate of 5. We will discuss with Dr. Gilbert regarding duration of the antibiotic therapy. Capo Esquivel MD
--- NOTE | 2017-02-22 14:35 | PN ---
DATE: 02/22/2017 LOCATION: The patient is in room 313, bed 2. REASON FOR CONSULTATION: Hypertension, diabetes, coronary artery disease, hyperlipidemia, status post right knee surgery, and then aspiration of blood from the right knee. SUBJECTIVE: The patient still complains of pain in the right knee, but denies any chest pain, shortness of breath, or palpitations, lying in bed comfortably. PHYSICAL EXAMINATION: VITAL SIGNS: Blood pressure 108/65, respirations 18, pulse 69, temperature 97.9. HEENT: Head is normocephalic. Eyes, pupils are normal. Conjunctivae, slightly pale. NECK: JVP low. Carotids are equal. THORAX: AP diameter normal. LUNGS: Clear. CARDIOVASCULAR: S1 and S2. ABDOMEN: Soft. No tenderness. No organomegaly. Bowel sounds normal. EXTREMITIES: No clubbing. No cyanosis. The patient had dressing on the right knee. LABORATORY DATA: WBC 4.4, hemoglobin 10.2, hematocrit 33.2, platelets 202. Sodium 143, potassium 4.1, BUN 8, creatinine 0.6, random glucose 118, calcium 8.6, magnesium 1.6, total protein 5.2, albumin 2.7. DIAGNOSES: Right knee surgery, status post draining of blood from the right knee, chronic lymphocytic leukemia, history of agammaglobulinemia, hyperlipidemia, diabetes, hypertension, coronary artery disease, anemia, hypomagnesemia. PLAN: The patient is getting IV antibiotics, also getting Flomax 0.4 daily, Pepcid 20 mg p.o. daily. Magnesium oxide 800 mg p.o. b.i.d. has been already ordered for low magnesium level. Insulin, the patient is already getting insulin. Ancef 1 g IV q.8 hours. The patient is getting physical therapy for deconditioning. We will follow with you. Marcos Barboza MD
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
--- NOTE | 2017-02-22 17:10 | PN ---
DATE: 02/22/2017 This is an hospital visit on the TCU floor. For Dr. Jenkins. SUBJECTIVE: The patient is a 71-year-old male seen in a gurney being wheeled for a Doppler ultrasound of his lower extremities ordered by Caryn Garcia PA-C. Dr. Jenkins reports that this was recommended by Dr. Fritz, his surgeon. With this, the patient is otherwise in no acute distress, participating with TCU protocols. He is status post transfusion of 2 units of packed cells were ordered in his stay when he was referred to those records. Otherwise, he is recuperating after his recent surgical procedure on his knee with a knee immobilizer on. PHYSICAL EXAMINATION: VITAL SIGNS: Temperature 97.9, pulse 69, respirations 18, blood pressure 108/65, and pulse ox 99%. HEENT: Unremarkable. NECK: Supple. HEART: Regular rate. LUNGS: Clear. ABDOMEN: Soft and nontender. EXTREMITIES: Scarred right forearm with claw-like right hand, status post trauma in the past. He also has a right knee immobilizer. Toes wiggle freely. Denies any pain to his knee. SKIN: Otherwise warm and dry. NEUROLOGIC: Awake and alert. LABORATORY DATA: The patient's labs were done. White blood cell count of 4.4, hemoglobin of 10.2, hematocrit of 33.2, and platelet count of 202, 000. A chem metabolic panel with a nonfasting glucose of 170, C-reactive protein of 13.4, procalcitonin less than 0.05. The patient was seen by Dr. Esquivel, Infectious Disease database reporting consultant who reports that the patient is presently on cefazolin and that he will discuss will Dr. Fritz his ratio of antibiotic therapy. 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 PLAN: The plan for this patient after conversation with Dr. Jenkins who spoke with Dr. Fritz is to continue his present medical regimen. We will check a Doppler ultrasound of lower extremities as the patient does have sequential device of his other lower extremity to prevent DVT with aspirin 325 mg twice a day to be begun as the patient previously was on blood thinners which have been held since his surgical procedure. We will monitor clinically with labs. Prognosis for this patient is guarded. We will also consult with Dr. Levine for his electrolyte imbalance was also appreciated. Jean Paul Ramos MD
[2017-02-22] MEDS: oxyCODONE 5 mg Immediate Release Tab PO PRN (22:17)
[2017-02-23] MEDS: ceFAZolin 1 gm in NS 1 GM/100 ML BAG IVPB SCH ×3 (05:54→21:26)
[2017-02-23] MEDS: Insulin Reg-LOW-Coverage SC SCH ×4 (06:31→22:00)
[2017-02-23] MEDS: oxyCODONE 5 mg Immediate Release Tab PO PRN (06:52)
[2017-02-23 07:40] LABS: BASO # 0.02 K/mm3 (0.0-2.0); BASO % 0.4 % (0.0-3.0); EOS # 0.1 (0.0-0.7); EOS % 1.5 % (1.5-5.0); GRAN # 1.49 (1.4-6.5); GRAN % 31.8 % (50.0-68.0); HEMOGLOBIN 10.3 g/dL (14.0-18.0); LYMPH # 2.4 (1.2-3.4); LYMPH % 50.1 % (22.0-35.0); MEAN CELL VOLUME 82.1 fl (80.0-105.0); MEAN CORPUSCULAR HEMOGLOBIN 24.9 pg (25.0-35.0); MEAN CORPUSCULAR HGB CONC 30.4 g/dl (31.0-37.0); MEAN PLATELET VOLUME 9.9 fl (7.0-11.0); MONO # 0.8 (0.1-0.6); MONO % 16.2 % (1.0-6.0); RBC 4.13 10^6/uL (3.5-6.1); RED CELL DISTRIBUTION WIDTH 17.4 % (11.5-14.5); WHITE BLOOD COUNT 4.7 10^3/ul (4.5-11.0)
[2017-02-23 07:57] LABS: ALBUMIN 3.1 g/dL (3.0-4.8); ALT/SGPT 48 U/L (7-56); AST/SGOT 42 U/L (17-59); BLOOD UREA NITROGEN 7 mg/dL (7-21); CALCIUM 9.2 mg/dL (8.4-10.5); GFR AFRICAN-AMERICAN > 60; GFR NON-AFRICAN AMERICAN > 60
[2017-02-23 07:59] LABS: ALB/GLOB RATIO 1.2 (1.1-1.8)
[2017-02-23] MEDS: Multivitamin Therapeutic Tab PO SCH (08:30)
--- NOTE | 2017-02-23 10:40 | US ---
HISTORY: Leg pain and swelling. Evaluate for DVT PHYSICIAN(S): Dameon Santiago MD. TECHNIQUE: Duplex sonography and color-flow Doppler with graded compression were used to evaluate the deep venous systems of both lower extremities. The exam is limited by body habitus. The tibial veins are not adequately seen FINDINGS: The visualized deep venous systems of both lower extremities are sonographically normal and compressible. Normal wave forms and augmentation are seen. There is no sonographic evidence for deep venous thrombosis in the visualized segments of both lower extremities. IMPRESSION: No sonographic evidence for deep venous thrombosis in the visualized segments of both lower extremities. Limited study.
[2017-02-23 11:35] LABS: PH,URINE 6.5 (4.7-8.0); URINE BILIRUBIN NEGATIVE (NEGATIVE); URINE BLOOD NEGATIVE (NEGATIVE); URINE GLUCOSE (UA) NEGATIVE (NEGATIVE); URINE LEUKOCYTE ESTERASE NEGATIVE Leu/uL (NEGATIVE); URINE NITRATE NEGATIVE (NEGATIVE); URINE PROTEIN NEGATIVE mg/dL (<30 mg/dL); URINE UROBILINOGEN 0.2 E.U./dL (<1 E.U./dL)
[2017-02-23 11:39] LABS: URINE APPEARANCE SLIGHT-CLOUDY (CLEAR); URINE COLOR YELLOW (YELLOW)
--- NOTE | 2017-02-23 11:46 | CP.PCM.PN ---
Subjective - Date & Time of Evaluation Date of Evaluation: 02/23/17 Time of Evaluation: 11:44 - Subjective Subjective: Nephrology follow up covering for Dr Levine: Assessment: stable Hypokalemia, Hypernatremia and Hypocalcemia Hypomagnesemia, Hypoalbuminemia Rt Knee infection diabetes Mellitus (5 years), hypogammaglobulinemia on monthly IVIG, CLL stage 4 with splenomegaly, CA prostate Assessment: Stable Plan electrolytes reviewed again today all look ok today. will r/o hyperaldo state on mag supplement BP controlled s: feels ok no compalitns Physical Examination: General Appearance: Comfortable, in no acute respiratory distress, co-operative . Vitals reviewed and noted as below Head; Atraumatic, normocephalic ENT: no ulcers no thrush. Tongue is midline. Oropharynx: no rash or ulcers. EYES: Pupils are equal, round and reactive to light accommodation. Eye muscles and extraocular movement intact. Sclera is anicteric. Neck; supple no lymphadenopathy, no thyromegaly or bruit Lungs: Normal respiratory rate/effort. Breath sounds bilateral equal and clear Heart: Normal rate. s1s2 normal. No rub or gallop. Extremities: RLE edema 1+ which is in splint. No varicose veins Neurological: Patient is alert, awake and oriented to person, place and time. No focal deficit. Strength bilateral appropriate and equal Skin: Warm and dry. Normal turgor. No rash. Palpitation: Normal elasticity for age Abdomen: Abdomen is soft. Bowel sounds +. There is no abdominal tenderness, no guarding/rigidity no organomegaly Psych: normal insight and normal affect/mood MSK: no joint tenderness or swelling. Digits and nails normal, Rt hand/arm deformity s/p accident many decades ago : kidney or bladder not palpable Objective - Vital Signs/Intake and Output Vital Signs (last 24 hours): Temp Pulse Resp BP Pulse Ox 98.4 F 99 H 18 103/68 99 02/23/17 10:00 02/23/17 10:00 02/23/17 10:00 02/23/17 10:00 02/23/17 10:00 Intake and Output: 02/23/17 02/23/17 06:59 18:59 Intake Total 240 Balance 240 - Medications Medications: Current Medications Acetaminophen (Tylenol 325mg Tab) 650 mg PO Q6H PRN; Protocol PRN Reason: Temperature Calcium Carbonate (Oscal) 500 mg PO BID [facility] Last Admin: 02/23/17 10:43 Dose: 500 mg Famotidine (Pepcid) 20 mg PO DAILY [facility] PRN Reason: Protocol Last Admin: 02/23/17 10:43 Dose: 20 mg Cefazolin Sodium (Ancef 1gm In Ns) 1 gm in 100 mls @ 100 mls/hr IVPB Q8 [facility] Last Admin: 02/23/17 05:54 Dose: 100 mls/hr Insulin Human Regular (Humulin R Low) 0 units SC ACHS [facility] PRN Reason: Protocol Last Admin: 02/23/17 06:31 Dose: Not Given Magnesium Oxide (Mag-Ox) 800 mg PO BID [facility] PRN Reason: Protocol Last Admin: 02/22/17 17:29 Dose: 800 mg Morphine Sulfate (Morphine) 3 mg IVP Q4H PRN PRN Reason: Pain, severe (8-10) Multivitamins (Thera Tab) 1 tab PO 0800 [facility] PRN Reason: Protocol Last Admin: 02/23/17 08:30 Dose: 1 tab Ondansetron HCl (Zofran Inj) 4 mg IVP Q8H PRN; Protocol PRN Reason: Nausea/Vomiting Oxycodone HCl (Oxycodone Immediate Release Tab) 5 mg PO Q6H PRN PRN Reason: Pain, moderate (4-7) Last Admin: 02/23/17 06:52 Dose: 5 mg Tamsulosin HCl (Flomax) 0.4 mg PO 1830 [facility] PRN Reason: Protocol Last Admin: 02/22/17 19:24 Dose: Not Given - Labs Labs: 02/23/17 07:00 02/23/17 07:00
[2017-02-23] MEDS: Magnesium Oxide 400 mg Tab UD PO SCH ×2 (12:19→19:13)
[2017-02-23] MEDS: Morphine 4 mg/ml ISec IVP PRN ×2 (12:19→20:34)
--- NOTE | 2017-02-23 14:32 | PN ---
DATE: 02/23/2017 This is [facility] visit on TCU. For Dr. Jenkins. SUBJECTIVE: The patient is a 71-year-old male, status post hematoma repair of the right knee, also known to have stage IV chronic lymphocytic leukemia. Now, reporting that his oral pain medication is not effective with his parenteral pain medication helping his pain. He was also status post a Doppler ultrasound to lower extremities done yesterday as per his surgeon with no sonographic evidence of DVT in the visualized segments of both extremities. With this, the surgeon had a conversation with Dr. Jenkins with aspirin 325 mg p.o. b.i.d. to be begun as the patient was on long-term anticoagulation with his bleeding from his knee and now post repair, we will restart anticoagulation as he appears to be improving. OBJECTIVE PHYSICAL EXAMINATION: VITAL SIGNS: Temperature 98.4, pulse 99, respirations 18, blood pressure 103/68, pulse ox 99%. HEENT: Unremarkable. Poor dentition. NECK: Supple. HEART: Regular rate. LUNGS: Clear. ABDOMEN: Soft, nontender. EXTREMITIES: Scarred right forearm with claw-like right hand, status post trauma. Right knee immobilizer with toes wiggling freely. SKIN: Otherwise, warm and dry. NEUROLOGIC: Awake and alert. LABORATORY DATA: The patient's labs were done. White blood cell count of 4.7, hemoglobin 10.3, status post transfusion of 2 units of packed cells earlier in his stay. Hematocrit 33.9, platelet count of 207,000 with a normal chem metabolic panel. Doppler as reported above. The patient also had a Nephrology consult for his electrolyte imbalance, which has now improved with hypocalcemic indices. ASSESSMENT AND PLAN: The assessment for this patient is that of postoperative repair of right knee as per orthopedic surgeon; history of stage IV chronic lymphocytic leukemia with intravenous gammaglobulin given in the past; history of prostate cancer; history of degenerative joint disease; atherosclerotic cardiovascular disease; gastroesophageal reflux disease; anemia, status post transfusion; gait disturbance. Hypercoagulable state? The plan for this patient after conservation with doctor is to monitor him clinically. We will continue present medical regimen as per Dr. Fritz, his surgeon and we will start aspirin 325 mg coated twice a day. We appreciate renal senior application security consultant's input. Jean Paul MD [facility] # [id number]
[2017-02-23] MEDS: oxyCODONE 10 mg Immediate Release Tab PO PRN (16:05)
--- NOTE | 2017-02-23 19:07 | PN ---
DATE: 02/23/2017 SUBJECTIVE: The patient is in bed, in no acute distress, and nontoxic. PHYSICAL EXAMINATION: VITAL SIGNS: Temperature is 98, blood pressure is 103/60, and respiratory rate of 18. HEENT: Unremarkable. NECK: Supple. LUNGS: Have decreased breath sounds. HEART: Normal S1 and S2. ABDOMEN: Soft and nontender. LABORATORY DATA: Reveals a white count of 4.7, hemoglobin of 10, and platelets of 207. Chemistries reveal the patient's BUN of 7 and creatinine of 0.6. Urinalysis is noted. Microbiology is noted. ASSESSMENT AND PLAN: This is a 71-year-old male with history of chronic lymphocytic leukemia stage IV, diabetes mellitus, prostate cancer, hypertension, coronary artery disease, gastroesophageal reflux disease, hyperlipidemia, postoperative knee hematoma, and degenerative joint disease. Cultures negative. WBC in the synovial fluid not elevated. Case was discussed with Dr. Fritz who there is no infection and wants to continue the cefazolin the patient is in the hospital then switch over to empiric antibiotic as outpatient p.o. However, there is no evidence of infection by biopsy, by cultures, and white count as per my discussion with Dr. Fritz. Currently, the patient is on cefazolin. Capo Esquivel MD
[2017-02-23] MEDS: Aspirin 325 mg EC Tablets PO SCH (19:12)
[2017-02-24] MEDS: Morphine 4 mg/ml ISec IVP PRN ×3 (02:11→20:54)
[2017-02-24] MEDS: ceFAZolin 1 gm in NS 1 GM/100 ML BAG IVPB SCH ×3 (05:04→21:01)
[2017-02-24] MEDS: Insulin Reg-LOW-Coverage SC SCH ×3 (07:00→21:23)
[2017-02-24 07:52] LABS: BASO # 0.02 K/mm3 (0.0-2.0); BASO % 0.5 % (0.0-3.0); EOS % 0.7 % (1.5-5.0); GRAN # 1.1 (1.4-6.5); GRAN % 27.4 % (50.0-68.0); HEMOGLOBIN 10.8 g/dL (14.0-18.0); LYMPH # 2.3 (1.2-3.4); LYMPH % 56.5 % (22.0-35.0); MEAN CELL VOLUME 82.1 fl (80.0-105.0); MEAN CORPUSCULAR HEMOGLOBIN 24.8 pg (25.0-35.0); MEAN CORPUSCULAR HGB CONC 30.3 g/dl (31.0-37.0); MEAN PLATELET VOLUME 10.4 fl (7.0-11.0); MONO # 0.6 (0.1-0.6); MONO % 14.9 % (1.0-6.0); RBC 4.35 10^6/uL (3.5-6.1)
[2017-02-24 08:12] LABS: ALB/GLOB RATIO 1.2 (1.1-1.8); ALBUMIN 3.2 g/dL (3.0-4.8); ALT/SGPT 38 U/L (7-56); AST/SGOT 44 U/L (17-59); BLOOD UREA NITROGEN 9 mg/dL (7-21); CALCIUM 9.1 mg/dL (8.4-10.5); GFR AFRICAN-AMERICAN > 60; GFR NON-AFRICAN AMERICAN > 60
[2017-02-24] MEDS: Multivitamin Therapeutic Tab PO SCH (09:00)
[2017-02-24] MEDS: oxyCODONE 10 mg Immediate Release Tab PO PRN (09:02)
[2017-02-24] MEDS: Aspirin 325 mg EC Tablets PO SCH ×2 (09:59→17:33)
[2017-02-24] MEDS: Magnesium Oxide 400 mg Tab UD PO SCH ×2 (10:01→17:32)
--- NOTE | 2017-02-24 15:56 | PN ---
DATE: 02/24/2017 SUBJECTIVE: The patient is in bed, in no acute distress, nontoxic. PHYSICAL EXAMINATION: VITAL SIGNS: Temperature is 98, blood pressure is 103/60, and respiratory rate of 18. HEENT: Unremarkable. NECK: Supple. LUNGS: Decreased breath sounds. HEART: Normal S1, S2. ABDOMEN: Soft, nontender. LABORATORY DATA: Reveals white count of 4, hemoglobin of 10, and platelets of 213. BUN of 9 and creatinine of 0.6. Urinalysis is noted. ASSESSMENT AND PLAN: A 71-year-old male was seen earlier today in room 313, with history of chronic lymphocytic leukemia stage IV, diabetes mellitus, prostate cancer, hypertension, coronary artery disease, gastroesophageal reflux disease, hyperlipidemia, postoperative knee hematoma, degenerative joint disease, and number of WBCs in the synovial fluid was not elevated. The cultures have been negative. I spoke with Dr. Gilbert. He does not believe there is an infection; however, we would like continue the antibiotic at this point. We will discuss with him and currently on cefazolin.. The patient continues to have significant amount of knee pain. Capo Esquivel MD
--- NOTE | 2017-02-24 16:32 | PN ---
DATE: 02/24/2017 This is [facility]'s [facility] visit on TCU. For Dr. Jenkins. SUBJECTIVE: The patient is a 71-year-old male, seen lying awake in bed on IV antibiotics as per his surgeon now, also being followed by Dr. Esquivel, Infectious Disease business info consultant. He is now status post evaluation for right knee hematoma with severe DJD, with history of CLL stage IV for which he gets IV gamma globulin periodically. He suffers from diabetes also. The patient reported that he has not been out of bed with his knee pain continuing off and on despite increasing his dose of oxycodone to 10 mg q.6 hours for his moderate pain and his morphine 3 mg IV q.4 hours for severe pain. He has not received injection until now with the oral to be continued for the interm. He also has difficulty with IV access with his antibiotics continuing as per Dr. Esquivel, Infectious Disease and his surgeon. He is for physiotherapy today as indicated. PHYSICAL EXAMINATION: VITAL SIGNS: Temperature 98.4, pulse 99, respirations 18, blood pressure 103/68, and pulse ox 99%. HEENT: Unremarkable. Poor dentition. NECK: Supple. HEART: Tachy rate, regular rhythm. LUNGS: Clear. ABDOMEN: Soft and nontender. EXTREMITIES: With the immobilizer in the right lower extremity, dressed with scar changes to the right upper extremities, status post trauma. NEUROLOGIC: Awake and alert. SKIN: Otherwise, warm, dry and clear. LABORATORY DATA: The patient's labs were done. White blood cell count of 4.0, hemoglobin of 10.8, hematocrit of 35.7, and platelet count of 213,000, with chem metabolic panel within normal limits. The patient was seen by Dr. Hand for his electrolyte abnormality yesterday with Dr. Traylor having seen the patient prior to this with the electrolytes now corrected. ASSESSMENT: For this patient is that of right knee hematoma postprocedure as per surgeon, stage IV chronic lymphocytic leukemia, history of prostate cancer, symptomatic anemia status post transfusion, degenerative joint disease, atherosclerotic cardiovascular disease, gastroesophageal reflux disease, gait disturbance, and hypercoagulable state. PLAN: Plan for this patient, after conversation with Dr. Jenkins, is to continue his aspirin 325 mg b.i.d. We will defer antibiotics for this patient with Dr. Boghossian, Infectious Disease business info consultant and the surgeon. We will continue his narcotic analgesics for now with reevaluation as per his surgical team. It should be noted an ultrasound of his lower extremity was done, which was negative. Prior to admission, the patient was actively taking Lovenox with his dressing soaked through blood and now it is the need for his readmission for surgical repair of the right knee hematoma. He is also to continue with TCU protocols as indicated. Jean Paul Ramos MD
[2017-02-25] MEDS: oxyCODONE 10 mg Immediate Release Tab PO PRN ×2 (02:24→12:51)
[2017-02-25] MEDS: Morphine 4 mg/ml ISec IVP PRN ×3 (04:15→20:42)
[2017-02-25] MEDS: ceFAZolin 1 gm in NS 1 GM/100 ML BAG IVPB SCH ×3 (05:07→22:11)
[2017-02-25] MEDS: Insulin Reg-LOW-Coverage SC SCH ×4 (07:45→22:11)
[2017-02-25] MEDS: Multivitamin Therapeutic Tab PO SCH (08:15)
[2017-02-25] MEDS: Magnesium Oxide 400 mg Tab UD PO SCH ×2 (09:17→17:40)
[2017-02-25] MEDS: Aspirin 325 mg EC Tablets PO SCH ×2 (09:19→17:39)
--- NOTE | 2017-02-25 15:46 | PN ---
DATE: REASON FOR CONSULTATION AND FOLLOWUP: Hypertension, diabetes, coronary artery disease, hyperlipidemia, status post knee surgery and aspiration of the blood clot from the knee, postop followup. SUBJECTIVE: The patient denies any chest pain, shortness of breath, or any palpitation. The patient is not in apparent distress. PHYSICAL EXAMINATION: VITAL SIGNS: As follows, temperature afebrile, heart rate 83, blood pressure 116/67. HEENT: PERRLA. Extraocular muscles intact. NECK: Supple. No carotid bruits or thyromegaly. CHEST: Clear to auscultation. HEART: S1 and S2 regular. ABDOMEN: Soft. EXTREMITIES: Clubbing and cyanosis negative. LABORATORY DATA: Blood workup as follows, WBC 4, hemoglobin 10, hematocrit 35.7, platelet count 213. Chemistry shows sodium 140, potassium 4, chloride , anion gap of 13, BUN 9, creatinine 0.9. IMPRESSION: Status post right knee surgery, status post evacuation of hematoma in right knee, chronic lymphocytic leukemia, agammaglobulinemia, hyperlipidemia, diabetes, coronary artery disease, anemia. CVS status is table. RECOMMENDATIONS: Continue antibiotics. Continue rehab. Monitor electrolytes. Continue aspirin. Continue Flomax. We will follow with you. Repeat the blood workup in the morning. Thank you Dr. Ramos for providing the opportunity in taking care of the patient. Marcos Farnsworth MD
--- NOTE | 2017-02-25 16:05 | PN ---
DATE: SUBJECTIVE: The patient is seen earlier this morning. No fevers, no chills. PHYSICAL EXAMINATION: VITAL SIGNS: The patient's temperature 98, blood pressure is 103/60, respiratory rate of 18. HEENT: Unremarkable. NECK: Supple. LUNGS: Have decreased breath sounds. HEART: Normal S1, S2. ABDOMEN: Soft, nontender. Laboratory examination reveals the patient has a white count of 4, hemoglobin of 10, platelets of 213. BUN of 9, creatinine 0.6. Microbiology is noted. Review of orders reveals the patient to be on cefazolin. ASSESSMENT AND PLAN: A 71-year-old male with a history of chronic lymphocytic leukemia stage IV, diabetes mellitus, prostate cancer, hypertension, coronary artery disease, gastroesophageal reflux disease, hyperlipidemia, postoperative knee hematoma, degenerative joint disease with cultures negative. I spoke to Dr. Fritz. He does not believe there is an infection. However, he wants to continue the antibiotics at this point. The patient continuing to have knee pain is of concern. Capo Esquivel MD
--- NOTE | 2017-02-25 19:06 | PN ---
DATE: 02/25/2017 This is [facility] visit on the TCU. For Dr. Jenkins. SUBJECTIVE: The patient is a 71-year-old male, seen sitting up in a chair with his leg elevated, with the patient admitted for evacuation of right knee hematoma with aspirin 325 restarted b.i.d. with the patient reporting his pain is now minimally decreased, otherwise he is reporting that he had ambulated earlier today and he is likely to participate in physiotherapy. OBJECTIVE/PHYSICAL EXAMINATION: VITAL SIGNS: Temperature 98.3, pulse 73, respirations 20, blood pressure 98/58, and pulse oximetry 99%. HEENT: Unremarkable. NECK: Supple. HEART: Regular rate. LUNGS: Clear. ABDOMEN: Soft. Nontender. EXTREMITIES: Knee immobilizer noted with scar changes and claw hand in the right upper extremity, status post trauma. NEUROLOGIC: Awake and alert. SKIN: Otherwise warm, dry and clear. LABORATORY DATA: The patient's labs were not done today, will be repeated in the morning. ASSESSMENT: The patient's assessment is that of postoperative evacuation of hematoma with surgical repair of right knee; stage IV chronic lymphocytic leukemia; history of prostate cancer; anemia, status post transfusion; degenerative joint disease; atherosclerotic cardiovascular disease; gastroesophageal reflux disease; gait disturbance; and hypercoagulable state. PLAN: Plan for this patient, after conversation with Dr. Jenkins, is to continue with aspirin 325 mg b.i.d. We will also continue his antibiotics as per Dr. Esquivel and his surgeon with narcotic analgesics renewed if he should need them temporarily. We will check his labs in the morning and monitor clinically. The patient is for discharge home only as per his surgeon. The patient did have an ultrasound of his lower extremity done on 02/22/2017, it was read as no evidence of DVT. This is a complex patient with multiple comorbidities, a comprehensive exam in excess of 15 minutes was carried out at the bedside [id number] time with the patient. Jean Paul Ramos MD
[2017-02-26] MEDS: ceFAZolin 1 gm in NS 1 GM/100 ML BAG IVPB SCH ×2 (05:24→13:33)
[2017-02-26] MEDS: Morphine 4 mg/ml ISec IVP PRN ×2 (05:24→17:44)
[2017-02-26 06:24] LABS: BASO # 0.03 K/mm3 (0.0-2.0); BASO % 0.7 % (0.0-3.0); EOS # 0.1 (0.0-0.7); EOS % 1.3 % (1.5-5.0); GRAN # 1.34 (1.4-6.5); GRAN % 29.2 % (50.0-68.0); HEMOGLOBIN 10.6 g/dL (14.0-18.0); LYMPH # 2.5 (1.2-3.4); LYMPH % 53.8 % (22.0-35.0); MEAN CORPUSCULAR HEMOGLOBIN 25.1 pg (25.0-35.0); MEAN CORPUSCULAR HGB CONC 30.6 g/dl (31.0-37.0); MEAN PLATELET VOLUME 10.3 fl (7.0-11.0); MONO # 0.7 (0.1-0.6); RBC 4.22 10^6/uL (3.5-6.1); RED CELL DISTRIBUTION WIDTH 17.2 % (11.5-14.5); WHITE BLOOD COUNT 4.6 10^3/ul (4.5-11.0)
[2017-02-26 06:35] LABS: BLOOD UREA NITROGEN 8 mg/dL (7-21); CALCIUM 9.2 mg/dL (8.4-10.5); GFR AFRICAN-AMERICAN > 60; GFR NON-AFRICAN AMERICAN > 60
[2017-02-26] MEDS: Insulin Reg-LOW-Coverage SC SCH ×3 (06:55→17:43)
[2017-02-26] MEDS: Multivitamin Therapeutic Tab PO SCH (08:15)
[2017-02-26] MEDS: oxyCODONE 10 mg Immediate Release Tab PO PRN (08:59)
[2017-02-26] MEDS: Aspirin 325 mg EC Tablets PO SCH (09:00)
[2017-02-26] MEDS: Magnesium Oxide 400 mg Tab UD PO SCH ×2 (09:00→17:43)
--- NOTE | 2017-02-26 11:22 | CP.PCM.PN ---
Subjective - Date & Time of Evaluation Date of Evaluation: 02/26/17 Time of Evaluation: 11:20 - Subjective Subjective: Pt awake, alert. complaining of intermittent pain. Afebrile R knee: incision clean and dry less swelling sutures intact Hg 10.6 doppler neg Stable for d/c home from ortho standpoint recommend ASA 325 bid cont immobilizer Objective - Vital Signs/Intake and Output Vital Signs (last 24 hours): Temp Pulse Resp BP Pulse Ox 97.6 F 71 20 121/98 H 99 02/25/17 17:51 02/25/17 17:51 02/25/17 17:51 02/25/17 17:51 02/25/17 14:00 - Medications Medications: Current Medications Acetaminophen (Tylenol 325mg Tab) 650 mg PO Q6H PRN; Protocol PRN Reason: Temperature Aspirin (Ecotrin) 325 mg PO BID [facility] Last Admin: 02/26/17 09:00 Dose: 325 mg Calcium Carbonate (Oscal) 500 mg PO BID [facility] Last Admin: 02/26/17 09:01 Dose: 500 mg Famotidine (Pepcid) 20 mg PO DAILY [facility] PRN Reason: Protocol Last Admin: 02/26/17 09:00 Dose: 20 mg Cefazolin Sodium (Ancef 1gm In Ns) 1 gm in 100 mls @ 100 mls/hr IVPB Q8 [facility] Last Admin: 02/26/17 05:24 Dose: 100 mls/hr Insulin Human Regular (Humulin R Low) 0 units SC ACHS [facility] PRN Reason: Protocol Last Admin: 02/26/17 06:55 Dose: Not Given Magnesium Oxide (Mag-Ox) 800 mg PO BID [facility] PRN Reason: Protocol Last Admin: 02/26/17 09:00 Dose: 800 mg Morphine Sulfate (Morphine) 3 mg IVP Q4H PRN PRN Reason: Pain, severe (8-10) Last Admin: 02/26/17 05:24 Dose: 3 mg Multivitamins (Thera Tab) 1 tab PO 0800 [facility] PRN Reason: Protocol Last Admin: 02/26/17 08:15 Dose: 1 tab Ondansetron HCl (Zofran Inj) 4 mg IVP Q8H PRN; Protocol PRN Reason: Nausea/Vomiting Oxycodone HCl (Oxycodone Immediate Release Tab) 10 mg PO Q6H PRN PRN Reason: Pain, moderate (4-7) Last Admin: 02/26/17 08:59 Dose: 10 mg Tamsulosin HCl (Flomax) 0.4 mg PO 1830 [facility] PRN Reason: Protocol Last Admin: 02/25/17 17:39 Dose: 0.4 mg - Labs Labs: 02/26/17 06:00 02/26/17 06:00
--- NOTE | 2017-02-26 12:47 | CP.PCM.PN ---
Subjective - Date & Time of Evaluation Date of Evaluation: 02/26/17 Time of Evaluation: 11:35 - Subjective Subjective: Comfortable, still with intermittent right knee pain but better, no fevers overnight. Objective - Vital Signs/Intake and Output Vital Signs (last 24 hours): Temp Pulse Resp BP Pulse Ox 98.8 F 70 20 109/70 99 02/26/17 11:59 02/26/17 11:59 02/26/17 11:59 02/26/17 11:59 02/25/17 14:00 - Medications Medications: Current Medications Acetaminophen (Tylenol 325mg Tab) 650 mg PO Q6H PRN; Protocol PRN Reason: Temperature Aspirin (Ecotrin) 325 mg PO BID [facility] Last Admin: 02/26/17 09:00 Dose: 325 mg Calcium Carbonate (Oscal) 500 mg PO BID [facility] Last Admin: 02/26/17 09:01 Dose: 500 mg Famotidine (Pepcid) 20 mg PO DAILY [facility] PRN Reason: Protocol Last Admin: 02/26/17 09:00 Dose: 20 mg Cefazolin Sodium (Ancef 1gm In Ns) 1 gm in 100 mls @ 100 mls/hr IVPB Q8 [facility] Last Admin: 02/26/17 05:24 Dose: 100 mls/hr Insulin Human Regular (Humulin R Low) 0 units SC ACHS [facility] PRN Reason: Protocol Last Admin: 02/26/17 12:28 Dose: Not Given Magnesium Oxide (Mag-Ox) 800 mg PO BID [facility] PRN Reason: Protocol Last Admin: 02/26/17 09:00 Dose: 800 mg Morphine Sulfate (Morphine) 3 mg IVP Q4H PRN PRN Reason: Pain, severe (8-10) Last Admin: 02/26/17 05:24 Dose: 3 mg Multivitamins (Thera Tab) 1 tab PO 0800 [facility] PRN Reason: Protocol Last Admin: 02/26/17 08:15 Dose: 1 tab Ondansetron HCl (Zofran Inj) 4 mg IVP Q8H PRN; Protocol PRN Reason: Nausea/Vomiting Oxycodone HCl (Oxycodone Immediate Release Tab) 10 mg PO Q6H PRN PRN Reason: Pain, moderate (4-7) Last Admin: 02/26/17 08:59 Dose: 10 mg Tamsulosin HCl (Flomax) 0.4 mg PO 1830 [facility] PRN Reason: Protocol Last Admin: 02/25/17 17:39 Dose: 0.4 mg - Labs Labs: 02/26/17 06:00 02/26/17 06:00 - Constitutional Appears: Non-toxic - Head Exam Head Exam: NORMAL INSPECTION - Respiratory Exam Respiratory Exam: Decreased Breath Sounds - Cardiovascular Exam Cardiovascular Exam: +S1, +S2 - GI/Abdominal Exam GI & Abdominal Exam: Soft. absent: Tenderness - Extremities Exam Additional comments: right knee with dressings in place Assessment and Plan - Assessment and Plan (Free Text) Plan: Assessment post-op right knee hematoma, with currently no evidence of infection noted Plan Right knee cultures are negative; patient is on Cefazolin for prophylaxis but may d/c antibiotics once ready for discharge
[2017-02-26 16:45] VITALS: BP 116/69; PULSE 76; RESP 16; TEMP 97.7; O2SAT 98
--- NOTE | 2017-02-26 23:01 | PN ---
DATE: 02/26/2017 LOCATION: The patient in room 313, bed 2. REASON FOR CONSULTATION: Followup of hypertension, diabetes, coronary artery disease, hyperlipidemia, status post knee surgery and aspiration of blood clot from the knee, deconditioning. SUBJECTIVE: The patient denies any chest pain, shortness of breath, or palpitation. PHYSICAL EXAMINATION: VITAL SIGNS: Blood pressure 116/69, respirations 16, pulse is 76, temperature 97.7. HEENT: Head is normocephalic. Eyes: Pupils normal. Conjunctivae slightly pale. NECK: JVP low. Carotids are equal. THORAX: AP diameter normal. LUNGS: Clear. CARDIOVASCULAR: S1, S2. ABDOMEN: Soft, nontender. No organomegaly. Bowels are normal. EXTREMITIES: No clubbing, no cyanosis. The patient has incision on the right knee from surgery. LABORATORY DATA: WBC 4.6, hemoglobin 10.6, hematocrit 34.6, platelets 217. Sodium 141, potassium 4.2, BUN 8, creatinine 0.6, sugar 103, random glucose 131, calcium 9.2. DIAGNOSES: Status post right knee surgery, status post evacuation of hematoma of the right knee, chronic lymphocytic leukemia, agammaglobulinemia, hyperlipidemia, diabetes, coronary artery disease, anemia. PLAN: Clinically cardiovascular stable. Continue antibiotics. Continue physical therapy. Continue aspirin, Flomax, and we will continue to follow closely. Marcos Barboza MD
[2017-02-27 23:38] LABS: ALDO/PRA RATIO 1.6 Ratio (0.9-28.9)
== END 2017-02-26 18:53 | disposition home or self-care (01) | DRG 554 ==
LOC: TRCU 16:22
PROVIDERS: ADMIT Family Medicine; ATTEND Family Medicine
PROC: F07Z9FZ Gait Training/Functional Ambulation Treatment using Assistive, Adaptive, Supportive or Protective Equipment (ICD-10-PCS; principal; 2017-02-21)
PROC: F07M6ZZ Therapeutic Exercise Treatment of Musculoskeletal System - Whole Body (ICD-10-PCS; 2017-02-21)
PROC: F08Z0ZZ Bathing/Showering Techniques Treatment (ICD-10-PCS; 2017-02-22)
PROC: F08Z1ZZ Dressing Techniques Treatment (ICD-10-PCS; 2017-02-22)
PROC: F08Z2ZZ Grooming/Personal Hygiene Treatment (ICD-10-PCS; 2017-02-22)
PROC: F08Z4ZZ Home Management Treatment (ICD-10-PCS; 2017-02-22)
DX: M17.0 Bilateral primary osteoarthritis of knee (principal); C91.10 Chronic lymphocytic leukemia of B-cell type not having achieved remission; D68.59 Other primary thrombophilia; E87.0 Hyperosmolality and hypernatremia; E83.42 Hypomagnesemia; E83.51 Hypocalcemia; D64.9 Anemia, unspecified; E11.9 Type 2 diabetes mellitus without complications; I25.10 Atherosclerotic heart disease of native coronary artery without angina pectoris; E78.5 Hyperlipidemia, unspecified; E87.6 Hypokalemia; E88.09 Other disorders of plasma-protein metabolism, not elsewhere classified; I10 Essential (primary) hypertension; K21.9 Gastro-esophageal reflux disease without esophagitis; S80.01XA Contusion of right knee, initial encounter; Z79.01 Long term (current) use of anticoagulants; Z79.82 Long term (current) use of aspirin; Z85.46 Personal history of malignant neoplasm of prostate; Z87.891 Personal history of nicotine dependence

== ENCOUNTER 2017-07-11 08:41 | Day surgery (SDC) | payer BC ==
[2017-06-25 08:33] VITALS: BMI 28.5
[2017-07-11] MEDS ORDERED: Iohexol 240 (50 ml) ONE (10:33)
[2017-07-11] MEDS ORDERED: Lidocaine 2% Jelly (30 ml) ONE (10:33)
[2017-07-11] MEDS ORDERED: Lidocaine 2% Jelly (Uro-Jet) ONE (10:34)
[2017-07-11 11:02] LABS: HEMOGLOBIN 8.7 g/dL (14.0-18.0); MEAN CELL VOLUME 75.2 fl (80.0-105.0); MEAN CORPUSCULAR HEMOGLOBIN 23.5 pg (25.0-35.0); MEAN CORPUSCULAR HGB CONC 31.2 g/dl (31.0-37.0); MEAN PLATELET VOLUME 9.4 fl (7.0-11.0); RBC 3.71 10^6/uL (3.5-6.1); RED CELL DISTRIBUTION WIDTH 17.1 % (11.5-14.5); WHITE BLOOD COUNT 4.9 10^3/ul (4.5-11.0)
[2017-07-11] MEDS ORDERED: Propofol 10 mg/ml Inj (20 ML) ONE (12:21)
[2017-07-11] MEDS ORDERED: Lidocaine 1% Inj (20ml) ONE (12:22)
[2017-07-11] MEDS ORDERED: oxyCODONE 10 mg Immediate Release Tab PO PRN (12:22)
[2017-07-11] MEDS ORDERED: cefTRIAXone (Rocephin) 1 gm Inj ONE (12:27)
[2017-07-11] MEDS ORDERED: HYDROmorphone 0.5 mg/0.5 ml ISec IVP PRN ×2 (12:58→13:08)
--- NOTE | 2017-07-11 15:30 | RAD ---
PROCEDURE: HISTORY: As Above COMPARISON: None TECHNIQUE: Total fluoroscopic time utilized during the procedure: 5.5 seconds. Total dose 5.15 mGy cm squared FINDINGS: Submitted images from the current procedure: 7 Please refer to the physician's notes performing the procedure. IMPRESSION: Less than 1 hour fluoroscopic time utilized during performance of the procedure
--- NOTE | 2017-07-11 16:32 | CP.PCM.CON ---
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 Patient was on Imbruvica for SLL which is on hold in preparation to surgery due to increased risk of bleeding diasthesis and atrial fibrillation with this medications. Patient was also on eliquis which was also stopped anticipating procedure 5 days ago. Patient had recent cystoscopy by Dr. Cervantes. Patient had bilateral knee replacement few years ago and since then he states he has been having problems with the knees becoming infected. Patient presented to same day surgery yesterday for cystoscopy. Patient was recommended to be observed overnight on account of anemia with a drop of approx [address] Jenkins is consulted for the management of his anemia. Patient was seen and examined at bedside. Patient is resting comfortably tolerating oral intake and voiding bladder independently. Patient denies chills , denies nausea, vomiting or diarrhea. Patient's right leg is immobilized. Patient denies dizziness, cp or sob. No headaches. PMHx: stage IV SLL/CLL, prostate CA s/p radiation and chemo, GERD, HLD, CAD, NIDDM2 PSHx: BL knee Sx, tooth extractions, R permacath SocialHx: 35 pack year history, quit 26years ago, denies alcohol or illicit drug use. FamilyHx: Mom had DM. Dad had Lung CA. Sister had unknown type of CA Allergies: NKDA Home Meds: reviewed. Review of Systems - Review of Systems Review of Systems: as per HPI otherwise negative Past Patient History - Infectious Disease Hx of Infectious Diseases: None - Tetanus Immunizations Tetanus Immunization: >10 years Ago - Past Social History Smoking Status: Former Smoker - CARDIAC Hx Pacemaker: No - PULMONARY Hx Respiratory Disorders: No (SMOKED CIGARETTES PK 1/2 QUIT 30 YRS AGO) - NEUROLOGICAL Hx Paralysis: No - HEENT Hx HEENT Problems: No - RENAL Hx Chronic Kidney Disease: No - ENDOCRINE/METABOLIC Hx Endocrine Disorders: Yes - HEMATOLOGICAL/ONCOLOGICAL Hx Blood Transfusions: Yes Hx Blood Transfusion Reaction: No - INTEGUMENTARY Hx Dermatological Problems: No - MUSCULOSKELETAL/RHEUMATOLOGICAL Hx Musculoskeletal Disorders: Yes (BILATERAL KNEE SURGERY,) - GASTROINTESTINAL Hx Gastrointestinal Disorders: No Hx Crohn's Disease: No - GENITOURINARY/GYNECOLOGICAL Hx Genitourinary Disorders: No - PSYCHIATRIC Hx Emotional Abuse: No Hx Physical Abuse: No Hx Substance Use: No - SURGICAL HISTORY Hx Surgeries: Yes - ANESTHESIA Hx Anesthesia Reactions: No Hx Malignant Hyperthermia: No Meds Allergies/Adverse Reactions: Allergies Allergy/AdvReac Type Severity Reaction Status Date / Time No Known Allergies Allergy Verified 02/20/17 19:42 - Medications Medications: Current Medications Aspirin (Ecotrin) 81 mg PO DAILY [facility] Famotidine (Pepcid) 20 mg PO DAILY [facility] Hydromorphone HCl (Dilaudid) 0.5 mg IVP Q15M PRN PRN Reason: Pain, moderate (4-7) Megestrol Acetate (Megace) 200 mg PO DAILY [facility] Metformin HCl (Glucophage) 1,000 mg PO BID [facility] Metoclopramide HCl (Reglan) 10 mg IV ONCE PRN PRN Reason: Nausea/Vomiting Non-Formulary Medication (Fesoterodine Fumarate [Toviaz]) 4 mg PO DAILY [facility] Non-Formulary Medication (Methenamine Hippurate [Hiprex]) 1 gm PO DAILY [facility] Non-Formulary Medication (Mv-Min/Folic/Vit K/Lycop/Coq10 [Daily Multivitamin Capsule]) 1 tab PO DAILY [facility] Non-Formulary Medication (Ferrous Gluconate [Iron]) 65 mg PO DAILY [facility] Ondansetron HCl (Zofran Inj) 4 mg IVP ONCE PRN PRN Reason: Nausea/Vomiting Oxycodone HCl (Oxycodone Immediate Release Tab) 10 mg PO Q6H PRN PRN Reason: Pain, severe (8-10) Sitagliptin Phosphate (Januvia) 50 mg PO BID [facility] Tamsulosin HCl (Flomax) 0.4 mg PO DAILY [facility] Valsartan (Diovan) 320 mg PO DAILY [facility] Physical Exam - Constitutional Appears: No Acute Distress - Head Exam Head Exam: ATRAUMATIC, NORMAL INSPECTION, NORMOCEPHALIC - Eye Exam Eye Exam: EOMI, Normal appearance, PERRL Pupil Exam: NORMAL ACCOMODATION, PERRL - ENT Exam ENT Exam: Mucous Membranes Moist, Normal Exam - Neck Exam Neck exam: Positive for: Normal Inspection - Respiratory Exam Respiratory Exam: Clear to Auscultation Bilateral, NORMAL BREATHING PATTERN - Cardiovascular Exam Cardiovascular Exam: REGULAR RHYTHM, +S1, +S2 - GI/Abdominal Exam GI & Abdominal Exam: Normal Bowel Sounds, Soft. absent: Tenderness - Neurological Exam Neurological exam: Alert, CN II-XII Intact, Oriented x3, Reflexes Normal - Psychiatric Exam Psychiatric exam: Normal Affect, Normal Mood - Skin Skin Exam: Dry, Intact, Normal Color, Warm Results - Vital Signs Recent Vital Signs: Last Vital Signs Temp 98.1 F 07/11/17 14:00 Pulse 78 07/11/17 14:00 Resp 20 07/11/17 14:00 BP 113/75 07/11/17 14:00 Pulse Ox 96 07/11/17 14:00 - Labs Result Diagrams: 07/11/17 10:50 Labs: Laboratory Results - last 24 hr 07/11/17 10:50 WBC 4.9 D RBC 3.71 Hgb 8.7 L D Hct 27.9 L MCV 75.2 L MCH 23.5 L MCHC 31.2 RDW 17.1 H Plt Count 128 MPV 9.4 Assessment & Plan - Assessment and Plan (Free Text) Assessment: 71 AA male with a PMHx of stage IV SLL/CLL ( was on Imbruvica) and prostate cancer locally advanced s/p radiation and androgen blocked neupron admitted s/p right knee prosthetic joint infection revision s/p explant and spacer placement. Patient was on chemo ( Imbruvica) and eliquis which were all held in preparation of the surgery. Patient is cystoscopy, hemoglobin found to be 8.7 from a previous 11.8. We will recommend transfusing 2 units pRBC at this time and continue his home medications. Will give lasix in the between transfusions , and premedicated with benadryl, solucortef and tylenol prior to 1st transfusion.. Continue to monitor for bleeding. Will reassess after transfusing pRBCs and reevaluate. Patient seen, examined and case discussed with Dr Jenkins.
[2017-07-11] MEDS ORDERED: DiphenhydrAMINE 50 mg/ml Inj IVP ONE (16:40)
[2017-07-11] MEDS ORDERED: Non Formulary Medication (Sitagliptin Phos/Metformin Hcl [Janumet 50-1,000 Mg Tablet] 1 TA PO SCH (18:00)
[2017-07-11] MEDS ORDERED: Pneumococcal 23-Valent Vaccine IM ONE (22:17)
[2017-07-12 00:46] VITALS: RESP 20
[2017-07-12 04:40] VITALS: TEMP 98.4
[2017-07-12 05:56] VITALS: O2SAT 99
[2017-07-12 07:15] LABS: BASO # 0.01 K/mm3 (0.0-2.0); BASO % 0.2 % (0.0-3.0); GRAN # 2.69 (1.4-6.5); GRAN % 62.2 % (50.0-68.0); LYMPH # 1.3 (1.2-3.4); LYMPH % 29.3 % (22.0-35.0); MEAN CELL VOLUME 76.2 fl (80.0-105.0); MEAN CORPUSCULAR HEMOGLOBIN 24.2 pg (25.0-35.0); MEAN CORPUSCULAR HGB CONC 31.7 g/dl (31.0-37.0); MEAN PLATELET VOLUME 9.5 fl (7.0-11.0); MONO # 0.4 (0.1-0.6); MONO % 8.3 % (1.0-6.0); RBC 4.63 10^6/uL (3.5-6.1); RED CELL DISTRIBUTION WIDTH 17.9 % (11.5-14.5); WHITE BLOOD COUNT 4.3 10^3/ul (4.5-11.0)
[2017-07-12 07:26] LABS: HEMOGLOBIN 11.2 g/dL (14.0-18.0)
[2017-07-12 07:34] LABS: INR 0.1 (0.93-1.08)
[2017-07-12 07:35] LABS: PARTIAL THROMBOPLASTIN TIME 26.8 Seconds (25.1-36.5)
[2017-07-12 07:39] LABS: ALB/GLOB RATIO 1.5 (1.1-1.8); ALBUMIN 4.2 g/dL (3.0-4.8); ALT/SGPT 24 U/L (7-56); AST/SGOT 26 U/L (17-59); BLOOD UREA NITROGEN 12 mg/dL (7-21); CALCIUM 10.1 mg/dL (8.4-10.5); GFR AFRICAN-AMERICAN > 60; GFR NON-AFRICAN AMERICAN > 60
[2017-07-12 08:49] VITALS: BP 123/76; PULSE 77
[2017-07-12] MEDS: Megestrol Acetate 40 mg/ml Cup PO SCH ×2 (09:42→09:48)
[2017-07-12] MEDS ORDERED: VIT K PO SCH (10:00)
[2017-07-12] MEDS ORDERED: FOLIC PO SCH (10:00)
[2017-07-12] MEDS ORDERED: COQ10 PO SCH (10:00)
[2017-07-12] MEDS ORDERED: FERROUS GLUCONATE 65 MG PO SCH ×2 (10:00)
[2017-07-12] MEDS ORDERED: LYCOP PO SCH (10:00)
[2017-07-12] MEDS ORDERED: METHENAMINE HIPPURATE 1 GM PO SCH (10:00)
[2017-07-12] MEDS ORDERED: FESOTERODINE FUMARATE 4 MG PO SCH (10:00)
[2017-07-12] MEDS ORDERED: [UNRECOGNIZED DRUG - OTHER] PO SCH (10:00)
[2017-07-12] MEDS ORDERED: MV MIN PO SCH (10:00)
--- NOTE | 2017-07-23 06:56 | OP ---
PROCEDURE DATE: 07/11/2017 UROLOGY OPERATIVE NOTE PREOPERATIVE DIAGNOSES: Frequency, urgency, voiding dysfunction, irritative and obstructive urinary complaints, hematuria, "recurrent infection." POSTOPERATIVE DIAGNOSES: Frequency, urgency, voiding dysfunction, irritative and obstructive urinary complaints, hematuria, "recurrent infection." PROCEDURE: Cystoscopy, bladder biopsy and fulguration and retrograde pyelogram. COMPLICATIONS: None. ESTIMATED BLOOD LOSS: Less than 10 mL. INDICATIONS: See history and physical for further details. A very pleasant gentleman with history, not attributing "infection" with voiding dysfunction, discomforting underlying malignancy. Again, he has multiple medical issues treatments and recommendation. He just wanted to be . The past medical and surgical history is as listed in the chart. OPERATIVE FINDINGS: Normal anterior urethra. There is no strictures. and the verumontanum is visually occlusive . The other findings within the bladder mucosa with some areas of erythema with multiple . I suspect they are inflammatory, but we do want to rule out any malignancy. DESCRIPTION OF PROCEDURE: After obtaining informed consent, the patient was placed on the table. Routine monitor was placed. Time-out was called to confirm the patient. I do want to mention . The patient had mentioned that Dr. Jenkins ____ transfusion. The hemoglobin and hematocrit were noted . The patient was given general anesthesia. Time-out was called to confirm the patient positioning. . We introduced cystoscope under direct vision. Anterior urethra is normal with no strictures normal. . What we know is no specific abnormalities are otherwise detected. Normal anterior urethra. No strictures. The verumontanum is visually occlusive ____ anatomy. There are no major abnormalities detected. The procedure continued. The wire was inspected carefully. Retrograde pyelogram was performed. We did a bladder biopsy fulguration. There were no complications. Patient tolerated the procedure well without complications. rectal exam was performed, a 20-30 g prostate was smooth. Romero Claudia, MD [facility] # [id number]
--- NOTE | 2017-07-23 09:19 | PN ---
DATE: 07/11/2017 IMMEDIATE POSTOPERATIVE NOTE See the history and physical, operative report, etc. The patient is postop. Remains in stable condition status post cysto and bladder biopsy with fulguration. DIAGNOSIS: stable. We will monitor the patient closely and discuss admission as needed. Further plans will follow. He is stable. Status post cysto and bladder biopsy with fulguration. We will discuss the various management options available. Most likely, observation and then further plans will follow. Romero Taylor MD
--- NOTE | 2017-07-23 09:21 | HP ---
DATE OF EXAM: 07/21/2017 REASON FOR ADMISSION: Workup and treatment of hematuria, gross hematuria, recurrent infection. HISTORY OF PRESENT ILLNESS: This is a very pleasant gentleman. His actually for a while with multiple medical issues. Mostly, his big issue and he sees Dr. Jenkins, Medical Oncology, with his disease. From a Urology standpoint, recurrent infection , underlying malignancy evaluation. He has had recurrent bouts of "infection" but really we checked his urine cultures. We needed to rule out any other abnormalities. PAST MEDICAL AND SURGICAL HISTORY: Dr. Jenkins . REVIEW OF SYSTEMS: Listed above, otherwise noncontributory. Patient is not having any weight loss, chest pain, shortness of breath, night sweats, etc. He has multiple medical issues. On exam, he is being treated by Dr. Jenkins for his chronic malignancy. He receives transfusions periodically blood count. From a Urology standpoint, workup and rule out any other malignancy cysto and retrograde. followup. Past medical and surgical history as listed. REVIEW OF SYSTEMS: recovery room actually here in [facility]. PHYSICAL EXAMINATION: GENERAL: Well nourished male, in no apparent distress. VITAL SIGNS: Within normal limits. LUNGS: Clear. HEART: Normal S1 and S2. ABDOMEN: Overall soft, nontender. GENITOURINARY: Normal phallus without discharge. No testicular masses appreciated. RECTAL: 20 to 30 g prostate except fairly large DIAGNOSES: Voiding dysfunction, irritative and obstructive urinary complaints, and hematuria. This is a patient with multiple medical problems. PLAN: . We are going to do cystoscopy today. Possible biopsy . Retrograde pyelogram . . He has voiding dysfunction. obstructive uropathy . 1. Antibiotic prophylaxis. 2. Cystoscopy and retrograde pyelogram, possible biopsy and fulguration depending on what we find clinically. Risks, benefits discussed at length including mostly diagnostic studies, not overall voiding complaints, "urinary tract infections" . Romero Taylor MD [facility] # [id number]
== END 2017-07-12 13:17 | disposition home or self-care (01) ==
LOC: SDS 08:41 → 5RSO 13:58 → SDS 07-12 13:17
PROVIDERS: ATTEND Urology
DX: N39.0 Urinary tract infection, site not specified (principal); R31.29 Other microscopic hematuria; R35.0 Frequency of micturition; C61 Malignant neoplasm of prostate; C91.10 Chronic lymphocytic leukemia of B-cell type not having achieved remission; D64.9 Anemia, unspecified; E11.9 Type 2 diabetes mellitus without complications; E78.5 Hyperlipidemia, unspecified; K21.9 Gastro-esophageal reflux disease without esophagitis; Z96.653 Presence of artificial knee joint, bilateral; Z87.891 Personal history of nicotine dependence
CPT/HCPCS: 36415 ×2; 36430; 52204; 76000; 80053; 83735; 84100; 85025; 85027; 85610; 85730; 86850; 86900; 86920; J0696; J1170; J1200; J1720; J1940; J2405; J2704; J2765; J3010; J7120; P9016 ×2; Q9966

== ENCOUNTER 2017-07-29 12:34 | Emergency (ER) | payer BC ==
[2017-07-29 12:35] VITALS: BMI 28.5
--- NOTE | 2017-07-29 12:59 | ED PDOC ---
Arrival/HPI - General Chief Complaint: Shortness Of Breath Time Seen by Provider: 07/29/17 12:38 Historian: Patient, Spouse - History of Present Illness Narrative History of Present Illness (Text): 07/29/17 12:57 72 year old male, whose history includes CLL, presents to the Emergency department complaining of dyspnea on exertion, specifically when walking, for 1.5 days. Patient denies shortness of breath while at rest. Patient has not experienced these symptoms before. Patient denies any fever, chills, chest pain , nausea, vomiting, diarrhea, urinary symptoms, back pain, neck pain, headache, dizziness, trauma/injury or any other complaints. Time/Duration: Other (1.5 days) Symptom Onset: Gradual Symptom Course: Unchanged Activities at Onset: Light Context: Walking Past Medical History - Provider Review Nursing Documentation Reviewed: Yes - Infectious Disease Hx of Infectious Diseases: None - Tetanus Immunization Tetanus Immunization: >10 years Ago - Cardiac Hx Cardiac Disorders: Yes Hx Hypertension: Yes - Pulmonary Hx Respiratory Disorders: Yes (SMOKED CIGARETTES PK 1/2 QUIT 30 YRS AGO) - Neurological Hx Neurological Disorder: Yes Hx Dizziness: Yes - HEENT Hx HEENT Disorder: No - Renal Hx Renal Disorder: No - Endocrine/Metabolic Hx Endocrine Disorders: No - Hematological/Oncological Hx Blood Disorders: Yes Other/Comment: CLL stage 4 - Integumentary Hx Dermatological Disorder: Yes Other/Comment: 07-11-17 RIGHT ARM SCARRED AREA,LIMITED MOBILITY. RIGHT KNEE WITH H/O SX,PROSTHESIS PLACED,ABT SPACER TO KNEE.RIGHT KNEE REPLACED.SCARRING AND SWELLING TO AREA. - Musculoskeletal/Rheumatological Hx Musculoskeletal Disorders: Yes (BILATERAL KNEE SURGERY,) Hx Falls: Yes - Gastrointestinal Hx Gastrointestinal Disorders: No - Genitourinary/Gynecological Hx Genitourinary Disorders: Yes (URINARY FREQUENCY) Other/Comment: Turp a few days ago - Psychiatric Hx Psychophysiologic Disorder: No Hx Substance Use: No - Surgical History Other/Comment: MUSCLE GRAFT TO RIGHT ARM. - Anesthesia Hx Anesthesia Reactions: No Hx Malignant Hyperthermia: No - Suicidal Assessment Feels Threatened In Home Enviroment: No Family/Social History - Physician Review Nursing Documentation Reviewed: Yes Family/Social History: Unknown Family HX Smoking Status: Former Smoker Hx Alcohol Use: Yes (QUIT 35 YRS AGO) Hx Substance Use: No Hx Substance Use Treatment: No Allergies/Home Meds Allergies/Adverse Reactions: Allergies No Known Allergies Allergy (Verified 07/29/17 12:50) Home Medications: Home Meds Medication Instructions Recorded Confirmed Famotidine [Pepcid] 20 mg PO DAILY 02/20/17 06/25/17 Mv-Min/Folic/Vit K/Lycop/Coq10 1 tab PO DAILY 02/20/17 06/25/17 [Daily Multivitamin Capsule] Tamsulosin [Flomax] 0.4 mg PO DAILY 02/20/17 06/25/17 Aspirin [Ecotrin] 81 mg PO DAILY 06/25/17 07/11/17 Cholecalciferol (Vitamin D3) 50,000 unit PO MON 06/25/17 07/11/17 [Vitamin D3] Ferrous Gluconate [Iron] 65 mg PO DAILY 06/25/17 06/25/17 Fesoterodine Fumarate [Toviaz] 4 mg PO DAILY 06/25/17 06/25/17 Methenamine Hippurate [Hiprex] 1 gm PO DAILY 06/25/17 06/25/17 Sitagliptin Phos/Metformin HCl 1 tab PO BID 06/25/17 06/25/17 [Janumet 50-1,000 mg Tablet] Valsartan [Diovan] 320 mg PO DAILY 06/25/17 06/25/17 Review of Systems - Physician Review All systems were reviewed & negative as marked: Yes - Review of Systems Constitutional: absent: Fevers, Night Sweats Respiratory: SOB Cardiovascular: absent: Chest Pain Gastrointestinal: absent: Diarrhea, Nausea, Vomiting Genitourinary Male: absent: Dysuria Musculoskeletal: absent: Back Pain, Neck Pain Neurological: absent: Headache, Dizziness Physical Exam Vital Signs Reviewed: Yes Vital Signs Temp Pulse Resp BP Pulse Ox 07/29/17 17:17 98 F 90 17 107/71 97 07/29/17 17:13 98 F 90 17 107/71 97 07/29/17 15:25 98.0 F 100 H 24 90/54 L 100 07/29/17 13:23 17 100 07/29/17 12:47 97.7 F 99 H 17 105/72 97 Temperature: Afebrile Blood Pressure: Normal Pulse: Tachycardic Respiratory Rate: Normal Appearance: Positive for: Well-Appearing, Non-Toxic, Comfortable Pain Distress: None Mental Status: Positive for: Alert and Oriented X 3 - Systems Exam Head: Present: Atraumatic, Normocephalic Pupils: Present: PERRL Extroacular Muscles: Present: EOMI Conjunctiva: Present: Normal Mouth: Present: Moist Mucous Membranes Neck: Present: Normal Range of Motion Respiratory/Chest: Present: Clear to Auscultation, Good Air Exchange. No: Respiratory Distress, Accessory Muscle Use, Wheezes, Decreased Breath Sounds Cardiovascular: Present: Regular Rate and Rhythm, Normal S1, S2. No: Murmurs Abdomen: No: Tenderness, Distention, Peritoneal Signs Back: Present: Normal Inspection Upper Extremity: Present: Normal Inspection. No: Cyanosis, Edema Lower Extremity: Present: Normal Inspection. No: Edema Neurological: Present: GCS=15, CN II-XII Intact, Speech Normal Skin: Present: Warm, Dry, Normal Color. No: Rashes Psychiatric: Present: Alert, Oriented x 3, Normal Insight, Normal Concentration Medical Decision Making ED Course and Treatment: 07/29/17 13:02 Impression: 72 year old male presents to the Emergency department complaining of dyspnea on exertion for 1.5 days. ro chf, anemia, pe Plan: -- CT scan of the chest -- Chest xray -- EKG -- Urinalysis -- D-Dimer -- Labs -- Reassess and disposition Progress Notes: 07/29/17 17:44 noted dimer, cta later neg. no leg swelling. pt offered observation, however decline. also decline replacement of magnesium. labs and case discussed with dr hinojosa. agrees with outpt t - Lab Interpretations Lab Results: 07/29/17 13:05 07/29/17 13:05 Lab Results 07/29/17 14:00: PT 15.7 H, INR 1.36 H, APTT 25.9, D-Dimer, Quantitative 3035 H 07/29/17 13:05: Sodium 140, Potassium 5.0, Chloride 101, Carbon Dioxide 20 L, Anion Gap 24 H, BUN 21, Creatinine 1.1, Est GFR ( Amer) > 60, Est GFR ( Non-Af Amer) > 60, Random Glucose 173 H, Calcium 10.8 H, Magnesium 1.3 L, Total Bilirubin 1.0, AST 30, ALT 16, Alkaline Phosphatase 82, Lactate Dehydrogenase 878 H, Total Creatine Kinase 66, Troponin I < 0.01, NT-Pro-B Natriuret Pep 67.2 , Total Protein 7.2, Albumin 4.5, Globulin 2.7, Albumin/Globulin Ratio 1.7 07/29/17 13:05: WBC 2.8 L* D, RBC 4.94, Hgb 12.0 L, Hct 37.0 L, MCV 74.9 L, MCH 24.3 L, MCHC 32.4, RDW 17.3 H, Plt Count 172, MPV 9.8, Gran % 39.4 L, Lymph % ( Auto) 45.1 H, Cole % (Auto) 12.7 H, Eos % (Auto) 2.1, Baso % (Auto) 0.7, Gran # 1.12 L, Lymph # (Auto) 1.3, Cole # (Auto) 0.4, Eos # (Auto) 0.1, Baso # (Auto) 0.02 - RAD Interpretation Narrative RAD Interpretations (Text): 07/29/2017 13:40:22 Chest Xray FINDINGS: LUNGS: No active pulmonary disease. PLEURA: No significant pleural effusion identified, no pneumothorax apparent. CARDIOVASCULAR: Normal. OSSEOUS STRUCTURES: No significant abnormalities. VISUALIZED UPPER ABDOMEN: Normal. OTHER FINDINGS: There is a right-sided Port-A-Cath IMPRESSION: No active disease. 07/29/2017 16:23:49 CT Chest with contrast (Pulmonary Angiogram) FINDINGS: PULMONARY ARTERIES: Unremarkable. No pulmonary embolism. AORTA: No acute findings. No thoracic aortic aneurysm. LUNGS: Unremarkable. No nodule, mass or pulmonary consolidation. PLEURAL SPACES: Unremarkable. No effusion or pneuomothorax. HEART: Unremarkable. No cardiomegaly. No significant pericardial effusion. LYMPH NODES: No lymphadenopathy. BONES, CHEST WALL: Unremarkable. No fracture or destructive lesion OTHER FINDINGS: Massive splenomegaly. Orthogonal measurements 16 x 10 cm, the cephalocaudal dimension is incompletely visualized. Low-attenuation air in the spleen 1.8 cm of uncertain etiology, doubtful clinical significance. IMPRESSION: Unremarkable CT pulmonary angiogram. No pulmonary embolus. Additional benign and/or incidental findings described above. Radiology Orders: 07/29/17 12:55 CHEST PORTABLE [RAD] Stat 07/29/17 14:49 ANGIO CHEST PE PROTOCOL [CT] Stat - EKG Interpretation EKG Interpretation (Text): 07/29/17 12:55 EKG: Ordered, reviewed, and independently interpreted the EKG. Rate : 107 BPM Rhythm : Sinus tachycardia Interpretation : No ST-segment elevations or depressions, no T-wave inversions, normal intervals. Interpreted by ED Physician: Yes Type: 12 lead EKG Disposition/Present on Arrival - Present on Arrival Any Indicators Present on Arrival: No History of DVT/PE: No History of Uncontrolled Diabetes: No Urinary Catheter: No History of Decub. Ulcer: No History Surgical Site Infection Following: None - Disposition Have Diagnosis and Disposition been Completed?: Yes Diagnosis: Dyspnea Disposition: HOME/ ROUTINE Disposition Time: 08:00 Condition: STABLE Discharge Instructions (ExitCare): Shortness of Breath (Dyspnea) (DC), Low Magnesium Level (DC) Additional Instructions: please follow up with your doctor. return to er with worsening symptoms or concerns. you are declining a magnesium replacement. please follow up with your doctor. Forms: [employer] (Norwegian)
[2017-07-29 13:38] LABS: BASO # 0.02 K/mm3 (0.0-2.0); BASO % 0.7 % (0.0-3.0); EOS # 0.1 (0.0-0.7); EOS % 2.1 % (1.5-5.0); GRAN # 1.12 (1.4-6.5); GRAN % 39.4 % (50.0-68.0); LYMPH # 1.3 (1.2-3.4); LYMPH % 45.1 % (22.0-35.0); MEAN CELL VOLUME 74.9 fl (80.0-105.0); MEAN CORPUSCULAR HEMOGLOBIN 24.3 pg (25.0-35.0); MEAN CORPUSCULAR HGB CONC 32.4 g/dl (31.0-37.0); MEAN PLATELET VOLUME 9.8 fl (7.0-11.0); MONO # 0.4 (0.1-0.6); MONO % 12.7 % (1.0-6.0); RBC 4.94 10^6/uL (3.5-6.1); RED CELL DISTRIBUTION WIDTH 17.3 % (11.5-14.5)
[2017-07-29 13:41] LABS: WHITE BLOOD COUNT 2.8 10^3/ul (4.5-11.0)
--- NOTE | 2017-07-29 13:42 | RAD ---
HISTORY: sob COMPARISON: 02/14/2017 FINDINGS: LUNGS: No active pulmonary disease. PLEURA: No significant pleural effusion identified, no pneumothorax apparent. CARDIOVASCULAR: Normal. OSSEOUS STRUCTURES: No significant abnormalities. VISUALIZED UPPER ABDOMEN: Normal. OTHER FINDINGS: There is a right-sided Port-A-Cath IMPRESSION: No active disease.
[2017-07-29 13:50] LABS: ALB/GLOB RATIO 1.7 (1.1-1.8); ALBUMIN 4.5 g/dL (3.0-4.8); ALT/SGPT 16 U/L (7-56); AST/SGOT 30 U/L (17-59); BLOOD UREA NITROGEN 21 mg/dL (7-21); CALCIUM 10.8 mg/dL (8.4-10.5); GFR AFRICAN-AMERICAN > 60; GFR NON-AFRICAN AMERICAN > 60
[2017-07-29 13:55] LABS: B-TYPE NATRIURETIC PEPTIDE 67.2 pg/mL (0-450); TROPONIN I < 0.01 ng/mL
[2017-07-29 14:38] LABS: INR 1.36 (0.93-1.08); PARTIAL THROMBOPLASTIN TIME 25.9 Seconds (25.1-36.5); PROTHROMBIN TIME 15.7 SECONDS (9.4-12.5)
[2017-07-29] MEDS ORDERED: Iohexol 350 MG/100 ML VIAL ONE (15:05)
--- NOTE | 2017-07-29 16:25 | CT ---
PROCEDURE: CT Chest with contrast (Pulmonary Angiogram) HISTORY: Shortness of breath. Elevated D-dimer. COMPARISON: None available. TECHNIQUE: Axial computed tomography images were obtained of the chest in the pulmonary arterial phase of enhancement. Coronal and sagittal reformatted images were created and reviewed. Maximum intensity projection (MIP) reconstructed images in the following planes: Axial and coronal projections Intravenous contrast dose: 100 cc Omnipaque 350. Mean Hounsfield unit values in the main pulmonary artery: 332.26 Radiation dose: Total exam DLP = 464.44 mGy-cm. This CT exam was performed using one or more of the following dose reduction techniques: Automated exposure control, adjustment of the mA and/or kV according to patient size, and/or use of iterative reconstruction technique. FINDINGS: PULMONARY ARTERIES: Unremarkable. No pulmonary embolism. AORTA: No acute findings. No thoracic aortic aneurysm. LUNGS: Unremarkable. No nodule, mass or pulmonary consolidation. PLEURAL SPACES: Unremarkable. No effusion or pneuomothorax. HEART: Unremarkable. No cardiomegaly. No significant pericardial effusion. LYMPH NODES: No lymphadenopathy. BONES, CHEST WALL: Unremarkable. No fracture or destructive lesion OTHER FINDINGS: Massive splenomegaly. Orthogonal measurements 16 x 10 cm, the cephalocaudal dimension is incompletely visualized. Low-attenuation air in the spleen 1.8 cm of uncertain etiology, doubtful clinical significance. IMPRESSION: Unremarkable CT pulmonary angiogram. No pulmonary embolus. Additional benign and/or incidental findings described above.
[2017-07-29 17:14] VITALS: BP 107/71; PULSE 90; RESP 17; TEMP 98; O2SAT 97
--- NOTE | 2017-07-30 10:31 | CARD ---
APPROVED REPORT EKG Measurement Heart [id number] <Conclusion> Sinus tachycardia Possible Left atrial enlargement LAD No change
== END 2017-07-29 17:17 | disposition home or self-care (01) ==
LOC: ED 12:34
DX: R06.00 Dyspnea, unspecified (principal); I10 Essential (primary) hypertension; Z85.6 Personal history of leukemia; Z87.891 Personal history of nicotine dependence
CPT/HCPCS: 71045; 71275; 80053; 82550; 83615; 83735; 83880; 84484; 85025; 85378; 85610; 85730; 93005; 99283; Q9967

== ENCOUNTER 2018-03-20 11:31 | Outpatient (CLI) | payer BC | END 2018-03-20 11:32 | disposition home or self-care (01) | LOC: OPLAB 11:31 ==

== ENCOUNTER 2018-04-17 12:18 | Outpatient (CLI) | payer BC | END 2018-04-17 12:19 | disposition home or self-care (01) | LOC: OPLAB 12:18 ==

== ENCOUNTER 2018-05-15 13:46 | Outpatient (CLI) | payer BC | END 2018-05-15 13:47 | disposition home or self-care (01) | LOC: OPLAB 13:46 | DX: R05 Cough (principal); E83.40 Disorders of magnesium metabolism, unspecified; D64.9 Anemia, unspecified; E78.5 Hyperlipidemia, unspecified ==

== ENCOUNTER 2018-07-10 14:59 | Outpatient (CLI) | payer BC | END 2018-07-10 15:00 | disposition home or self-care (01) | LOC: OPLAB 14:59 ==